=== PATIENT | female | born 1955 | race Caucasian/White ===

== ENCOUNTER → 2016-09-22 | Outpatient (CLI) | payer BC ==
--- NOTE | 2016-09-22 16:24 | MAMMOGRAPHY REPORT ---
BILATERAL DIGITAL SCREENING MAMMOGRAM WITH CAD: 09/22/2016 CLINICAL HISTORY: Routine screening examination. TECHNIQUE: Bilateral CC and MLO views were obtained. Current study was also evaluated with a Comput er Aided Detection (CAD) system. COMPARISON: Comparison is made to exams dated: 12/21/2014 mammogram, 02/04/2013 mammogram, 11/21/2010 ma mmogram, 11/20/2009 mammogram - [facility], and 09/22/2007. BREAST COMPOSITION: There are scattered areas of fibroglandular density in both breasts. FINDINGS: The parenchymal pattern is unchanged. No developing mass, architectural distortion or clu ster of suspicious microcalcifications is seen in either breast. IMPRESSION: ACR BI-RADS CATEGORY 2: BENIGN There is no mammographic evidence of malignancy. A 1 year screening mammogram is recommended. The p atient will receive written notification of the results. Approximately 10% of breast cancers are not detected with mammography. A negative mammographic repor t should not delay biopsy if a clinically suggestive mass is present. Jennifer Hadley M.D. ay/:09/22/2016 14:17:32 Gas Appliance Repairer: Paulina LEONE(Tata)(Haroon), [facility] letter sent: Normal 1/2 BI-RADS Code: ACR BI-RADS Category 2: Benign
== END | disposition home or self-care (01) ==
LOC: C.MAMM 13:40
PROVIDERS: ATTEND Family Medicine
DX: Z12.31 Encounter for screening mammogram for malignant neoplasm of breast (principal)

== ENCOUNTER → 2017-04-29 | Outpatient (CLI) | payer BC | END | disposition home or self-care (01) | LOC: C.PAPS 11:49 | PROVIDERS: ATTEND Obstetrics & Gynecology | DX: Z01.419 Encounter for gynecological examination (general) (routine) without abnormal findings (principal) ==

== ENCOUNTER → 2017-10-09 | Outpatient (CLI) | payer OTHER ==
--- NOTE | 2017-10-12 07:47 | MAMMOGRAPHY REPORT ---
BILATERAL DIGITAL SCREENING MAMMOGRAM TOMOSYNTHESIS WITH CAD: 10/09/2017 CLINICAL HISTORY: Routine screening. Patient has no complaints. TECHNIQUE: Breast tomosynthesis in addition to standard 2D mammography was performed. Current study was also evaluated with a Computer Aided Detection (CAD) system. COMPARISON: Comparison is made to exams dated: 09/22/2016 mammogram, 12/21/2014 mammogram, 02/04/2013 ma mmogram, 11/21/2010 mammogram, 11/20/2009 mammogram - [facility], and 09/22/2007. BREAST COMPOSITION: There are scattered areas of fibroglandular density in both breasts. FINDINGS: No suspicious masses, calcifications, or areas of architectural distortion are noted in ei ther breast. There has been no significant interval change compared to prior exams. IMPRESSION: ACR BI-RADS CATEGORY 1: NEGATIVE There is no mammographic evidence of malignancy. A 1 year screening mammogram is recommended. The pa tient will receive written notification of the results. Approximately 10% of breast cancers are not detected with mammography. A negative mammographic report should not delay biopsy if a clinically suggestive mass is present. Shena Medina M.D. /:10/09/2017 15:50:43 Health Administration Teacher: Mary LEONE(Tata)(M), [facility] letter sent: Normal 1/2 BI-RADS Code: ACR BI-RADS Category 1: Negative
== END | disposition home or self-care (01) ==
LOC: C.MAMM 15:13
PROVIDERS: ATTEND Nurse Practitioner Family
DX: Z12.31 Encounter for screening mammogram for malignant neoplasm of breast (principal)

== ENCOUNTER 2020-08-10 14:03 | Inpatient (IN) ==
[2020-08-10] MEDS ORDERED: SODIUM CHLORIDE 0.9% 1000ML 1,000 ML IV SCH (15:30)
[2020-08-10] MEDS ORDERED: cefTRIAXone SODIUM 1,000 MG/50 ML BAG IV STA (15:36)
[2020-08-10] MEDS ORDERED: metroNIDAZOLE 500 MG/100 ML BAG IV STA (15:36)
--- NOTE | 2020-08-10 16:06 | Emergency Department Note ---
History of Present Illness General Chief complaint: Abdominal Pain Stated complaint: ABD PAIN, DR PELAYO OVER Time Seen by Provider: 08/10/20 15:20 History of Present Illness Provider complaint: Nausea and vomiting Onset (ago): week(s) 1 Location: abdomen Radiation: non-radiation Severity: mild Pain Consistency: + intermittent Maximum Pain Intensity: 2 Current Pain Intensity: 1 Quality: + aching Relieved By: + none Exacerbated By: + none Associated symptoms: + nausea/vomiting; no chest pain, no fever/chills and no shortness of breath 65-year-old female presents to the emergency department with nausea and vomiting after being evaluated by her oncologist. Patient reports she has been having nausea and vomiting for the last week. She states she felt constipated and took multiple laxatives to help her constipation which did help but then she started having increasing nausea and vomiting. She reports no fevers or chills. Devin mccall reports mild abdominal pain in epigastric area, she states it feels as though she did too many crunches. She states she thought that her symptoms were due to her chemotherapy drug Lenvima. Patient states she stopped the chemotherapy drug lenvima 2 days ago and has been feeling better. Patient did have outpatient labs and scans done today and was then sent to the emergency department by her oncology team. Home Medications Medication Instructions Recorded Confirmed Type cholecalciferol (vitamin D3) 50 2,000 unit PO QAM cap 03/16/19 08/10/20 History mcg (2,000 unit) capsule cranberry 400 mg capsule 400 mg PO DAILY 08/04/19 08/10/20 History metoprolol succinate 25 mg 25 mg PO BID tab 10/21/19 08/10/20 History tablet,extended release 24 hr Allergies Allergy/AdvReac Type Severity Reaction Status Date / Time carvedilol Allergy Mild Anxiety Verified 08/10/20 16:29 losartan Allergy Unknown TIRED AND Verified 08/10/20 16:29 "BLEEDING" - SEE NOTES BELOW codeine AdvReac Mild Headache & Verified 08/10/20 16:29 NAUSEA RIOS Inhibitors AdvReac Unknown CONSTIPATION Verified 08/10/20 16:29 - SEE NOTES BELOW erythromycin base AdvReac Unknown ABDOMINAL Verified 08/10/20 16:29 CRAMPS hydrochlorothiazide AdvReac Unknown SEVERE Verified 08/10/20 16:29 CONSTIPATION Past Med/Surg History Medical History (Updated 08/10/20 @ 17:51 by DAI Vickers) Degenerative disc disease H/O hyperthyroidism No current treatment Hypertension Malignant neoplasm of endometrium Endometrial biopsy 05/17/19 Osteoarthritis Stress bladder incontinence, female Temporomandibular joint disorder hx/no current issues Vaginal pessary present Surgical History History of colonoscopy History of total abdominal hysterectomy and bilateral salpingo-oophorectomy 06/16/2019 Dr. Young - CHRISTINA-BSO with pelvic para aortic node sampling, omen ectomy. History of total right hip replacement 03/19/18: SAB x 1 at L3-L4 at [facility] S/P excision of lipoma HX OF BACK Family History Mother , 88yo Diabetes Heart failure Renal failure Hypertension Father , 93yo Colon cancer Prostate cancer Dementia Brother No problems noted. Sister Deep vein thrombosis Son No problems noted. Daughter No problems noted. Denies family history of Ovarian cancer Social History Smoking Status: Never smoker Second Hand Exposure: No; Hx Alcohol Use: Yes Hx Substance Use: No Preferred Language: Syriac Communication Ability: Effective Visual Impairment: No Limitations Hearing Ability: Normal Mdm Developer Required: No Beliefs That Will Affect Care: None marital status: / Current Living Situation: Alone current occupational status: retired current occupation: Retired from [employer] How many Children do You have: 1 Feels Safe at Home: Yes caffeine: Yes (2 cups/day) during the past year weight has: remained stable Assistive Devices: Glasses Review of Systems A total of 10 systems reviewed and were otherwise negative Physical Exam Vital Signs Vital Signs - 24 hr 08/10/20 14:07 08/10/20 15:47 08/10/20 16:33 Temperature 36.2 C L Temperature Source Temporal Artery Scan Pulse Rate 88 Pulse Rate [Finger] 91 H 88 Respiratory Rate 18 20 16 Respiratory Effort / Characteristics Non-Labored Spontaneous Respiratory Depth Normal Respiratory Pattern Regular Blood Pressure 161/107 H Blood Pressure [Right Arm] 166/102 H 171/110 H Blood Pressure Mean 125 Blood Pressure Mean [Right Arm] 123 130 Pulse Oximetry 97 96 97 Oxygen Delivery Method Room Air Room Air Room Air Sepsis Recent Fever Within 48 Hours No Sepsis New/Unexplained Change in Mental Status N/A Sepsis Action Taken by Nursing No Action Required Physical Exam GENERAL: She is oriented to person, place, and time. She appears well-developed and well-nourished. She does not appear distressed. HENT: Exam performed. -Head: Normocephalic and atraumatic. -Right Ear: External ear normal. No mastoid tenderness. -Left Ear: External ear normal. No mastoid tenderness. -Mouth/Throat: The oropharynx is clear and moist. No trismus in the jaw. No dental abscesses or uvula swelling. No oropharyngeal exudate or tonsillar abscesses. EYES: Conjunctivae and EOM are normal. Pupils are equal, round, and reactive to light. Right eye exhibits no discharge. Left eye exhibits no discharge. No scleral icterus. NECK: Normal range of motion. Neck supple. No JVD present. No spinous process tenderness present. No carotid bruit present. No rigidity. No tracheal deviation and normal range of motion present. No Brudzinski's sign and no Kernig's sign noted. CV: Normal rate, regular rhythm, normal heart sounds and intact distal pulses. There is no peripheral edema. Palpable radial pulses bue. PULM/CHEST: Effort normal and breath sounds normal. No respiratory distress. No stridor. She has no wheezes. She has no rales. -Chest Wall: She exhibits no tenderness. ABD: The abdomen is soft. Bowel sounds are normal. She has no distension. No mass is present. There is tenderness to palpation of the right upper quadrant and epigastric area. There is no rebound, no guarding, no Velez's sign and no tenderness at McBurney's point. Rovsig negative MUSC/SKEL: Normal range of motion. There is no peripheral edema, tenderness or deformity. LYMPH: No cervical adenopathy. NEURO: She is alert and oriented to person, place, and time. She has normal strength. No cranial nerve deficit or sensory deficit. Coordination and gait normal. GCS eye subscore is 4. GCS verbal subscore is 5. GCS motor subscore is 6. Cerebellar tests wnl. SKIN: Skin is warm and dry. She is not diaphoretic. PSYCH: She has a normal mood and affect. Behavior is normal. Judgment and thought content normal. Course Course 1520: The patient was evaluated in room A11. A complete history and physical exam was performed. Patient has a oncology follow-up visit note by Dr. May. Patient has a history of uterine cancer. Patient prescribed Lenvima 20 mg which is on hold. EMR reviewed. Patient had a CTA of the chest on outpatient today which was negative for PE. Patient also had a CT of the abdomen done outpatient which showed a distended gallbladder with wall thickening that is suspicious for acute cholecystitis. There was interstitial and peripancreatic edema suggestive of an associated pancreatitis with no biliary ductal dilatation. There was wall thickening with increased enhancement of the central intrahepatic and extrahepatic biliary tree which may be reactive or represent associated cholangitis. Clinically, the patient does not have cholangitis as she does not have a fever. She has minimal elevation of her bilirubin level at 1.2 which was done outpatient today no clinical evidence of jaundice such as scleral icterus. Is not thought that the patient has acute ascending cholangitis at this time. 1536: Spoke with general surgery Emely Ta PA-C for Dr. Hare. She states he will be down to evaluate the patient. She states that the patient Rocephin and Flagyl. 1609: Dr. Hare and Carrie JONAS or down to evaluate the patient. They state they will let me know if they want the patient mated to their service or to the medicine service. 1614: Dr. Hare evaluated the patient and states she thinks that the pancreatitis is due to the chemotherapy. She recommends admitting to medicine and the surgery team will be on consult. She is okay with Rocephin and Flagyl. Administered Medications Heparin Sodium (Porcine) (Heparin Sod 5,000 Unit/0.5 Ml Vial) 5,000 units SQ Q8 [facility] Stop: 09/09/20 21:59 Last Admin: 08/10/20 22:20 Dose: 5,000 units Documented by: [id number] Dextrose/Lactated Ringer's (D5w And Lactated Ringers) 1,000 mls @ 120 mls/hr IV .[id number] SUGEY Stop: 09/09/20 18:01 Last Admin: 08/10/20 18:38 Dose: 120 mls/hr Documented by: [id number] Magnesium Hydroxide (Magnesium Hydroxide Susp 30 Ml Udc) 30 ml PO BID SUGEY Stop: 09/09/20 20:59 Last Admin: 08/10/20 21:01 Dose: Not Given Documented by: [id number] Metoprolol Succinate (Metoprolol Succ 25mg Ext Rel Tab) 25 mg PO BID SUGEY Stop: 09/09/20 20:59 Last Admin: 08/10/20 19:44 Dose: 25 mg Documented by: [id number] Mineral Oil (Mineral Oil Enema 133 Ml Btl) 133 ml KS HS PRN PRN Reason: Constipation Stop: 09/09/20 16:58 Last Admin: 08/10/20 18:37 Dose: 133 ml Documented by: [id number] Discontinued Medications Bisacodyl (Bisacodyl 5 Mg Tabec) 5 mg PO NOW ONE Stop: 08/10/20 17:00 Last Admin: 08/10/20 17:10 Dose: 5 mg Documented by: [id number] Sodium Chloride (Nss 1000ml) 1,000 mls @ 80 mls/hr IV .[id number] SUGEY Stop: 09/09/20 15:29 Last Infusion: 08/10/20 21:58 Dose: 0 mls/hr Documented by: [id number] Admin: 08/10/20 15:48 Dose: 80 mls/hr Documented by: [id number] Ceftriaxone Sodium (Rocephin) 1,000 mg in 50 mls @ 100 mls/hr IV NOW STA Stop: 08/10/20 16:05 Last Infusion: 08/10/20 16:21 Dose: 0 mls/hr Documented by: [id number] Admin: 08/10/20 15:51 Dose: 100 mls/hr Documented by: [id number] Metronidazole (Flagyl) 500 mg in 100 mls @ 100 mls/hr IV NOW STA Stop: 08/10/20 16:35 Last Infusion: 08/10/20 17:30 Dose: 0 mls/hr Documented by: [id number] Admin: 08/10/20 16:30 Dose: 100 mls/hr Documented by: [id number] Calcium Gluconate 2,000 mg/ (Sodium Chloride) 70 mls @ 240 mls/hr IV NOW ONE Stop: 08/10/20 18:16 Last Infusion: 08/10/20 19:06 Dose: 0 mls/hr Documented by: [id number] Admin: 02/26/21 18:28 Dose: 240 mls/hr Documented by: [id number] Labetalol HCl (Labetalol Hcl Iv 5 Mg/Ml 20ml) 10 mg IV NOW STA Stop: 08/10/20 18:50 Last Admin: 08/10/20 19:14 Dose: Not Given Documented by: [id number] Ondansetron HCl (Ondansetron Inj 2 Mg/Ml 2 Ml Vial) 4 mg IV NOW STA Stop: 08/10/20 18:50 Last Admin: 08/10/20 19:15 Dose: Not Given Documented by: [id number] Medical Decision Making Laboratory Data Result diagrams: 08/10/20 16:15 08/10/20 16:15 Lab Results 08/10/20 08/10/20 08/10/20 Range/Units 16:15 16:15 16:30 WBC 4.80 (4.8-10.8) K/uL RBC 4.10 L (4.2-5.4) M/uL Hgb 12.3 (12.0-16.0) g/dL Hct 35.3 L (37-47) % MCV 86.1 (80-100) fL MCH 30.0 (25-34) pg MCHC 34.8 (32-36) g/dL RDW Std Deviation 46.1 (36.4-46.3) fL RDW Coeff of Lewis 14.7 H (11.5-14.5) % Plt Count 137 (130-400) K/uL MPV 10.0 (7.4-10.4) fL Immature Gran % (Auto) 0.2 % Neut % (Auto) 69.5 % Lymph % (Auto) 20.4 % Kendall % (Auto) 8.5 % Eos % (Auto) 0.6 % Baso % (Auto) 0.8 % Neut # (Auto) 3.33 (1.4-6.5) K/uL Lymph # (Auto) 0.98 L (1.2-3.4) K/uL Kendall # (Auto) 0.41 (0.11-0.59) K/uL Eos # (Auto) 0.03 (0-0.5) K/uL Baso # (Auto) 0.04 (0-0.2) K/uL Immature Gran # (Auto) 0.01 (0.00-0.02) K/uL Sodium 138 (136-145) mmol/L Potassium 3.0 L (3.5-5.1) mmol/L Chloride 103 (98-107) mmol/L Carbon Dioxide 24 (21-32) mmol/L Anion Gap 11.0 (3-11) BUN 11 (7-18) mg/dl Creatinine 1.00 (0.6-1.2) mg/dl Est Cr Clr Drug Dosing 52.7 ml/min Est GFR ( Amer) 67.5 Est GFR (Non-Af Amer) 58.3 BUN/Creatinine Ratio 11.3 (10-20) Glucose 112 H (70-99) mg/dl Calcium 7.5 L (8.5-10.1) mg/dl Total Bilirubin 0.9 (0.2-1) mg/dl Direct Bilirubin 0.2 (0-0.2) mg/dl AST 27 (15-37) U/L ALT 22 (12-78) U/L Alkaline Phosphatase 105 (45-117) U/L Total Protein 6.0 L (6.4-8.2) gm/dl Albumin 2.5 L (3.4-5.0) gm/dl Lipase 2037 H (73-393) U/L COVID-19 Eval [facility] SARS-CoV-2, RNA, NAAT (NEGATIVE) 08/10/20 Range/Units 16:30 WBC (4.8-10.8) K/uL RBC (4.2-5.4) M/uL Hgb (12.0-16.0) g/dL Hct (37-47) % MCV (80-100) fL MCH (25-34) pg MCHC (32-36) g/dL RDW Std Deviation (36.4-46.3) fL RDW Coeff of Lewis (11.5-14.5) % Plt Count (130-400) K/uL MPV (7.4-10.4) fL Immature Gran % (Auto) % Neut % (Auto) % Lymph % (Auto) % Kendall % (Auto) % Eos % (Auto) % Baso % (Auto) % Neut # (Auto) (1.4-6.5) K/uL Lymph # (Auto) (1.2-3.4) K/uL Kendall # (Auto) (0.11-0.59) K/uL Eos # (Auto) (0-0.5) K/uL Baso # (Auto) (0-0.2) K/uL Immature Gran # (Auto) (0.00-0.02) K/uL Sodium (136-145) mmol/L Potassium (3.5-5.1) mmol/L Chloride (98-107) mmol/L Carbon Dioxide (21-32) mmol/L Anion Gap (3-11) BUN (7-18) mg/dl Creatinine (0.6-1.2) mg/dl Est Cr Clr Drug Dosing ml/min Est GFR ( Amer) Est GFR (Non-Af Amer) BUN/Creatinine Ratio (10-20) Glucose (70-99) mg/dl Calcium (8.5-10.1) mg/dl Total Bilirubin (0.2-1) mg/dl Direct Bilirubin (0-0.2) mg/dl AST (15-37) U/L ALT (12-78) U/L Alkaline Phosphatase (45-117) U/L Total Protein (6.4-8.2) gm/dl Albumin (3.4-5.0) gm/dl Lipase (73-393) U/L COVID-19 Eval Order SARS-CoV-2, RNA, NAAT NEGATIVE (NEGATIVE) [facility] Narrative 1520: The patient was evaluated in room A11. A complete history and physical exam was performed. Patient has a oncology follow-up visit note by Dr. May. Patient has a history of uterine cancer. Patient prescribed Lenvima 20 mg which is on hold. EMR reviewed. Patient had a CTA of the chest on outpatient today which was negative for PE. Patient also had a CT of the a bdomen done outpatient which showed a distended gallbladder with wall thickening that is suspicious for acute cholecystitis. There was interstitial and peripancreatic edema suggestive of an associated pancreatitis with no biliary ductal dilatation. There was wall thickening with increased enhancement of the central intrahepatic and extrahepatic biliary tree which may be reactive or represent associated cholangitis. Clinically, the patient does not have cholangitis as she does not have a fever. She has minimal elevation of her bilirubin level at 1.2 which was done outpatient today no clinical evidence of jaundice such as scleral icterus. Is not thought that the patient has acute ascending cholangitis at this time. 1536: Spoke with general surgery Emely Ta PA-C for Dr. Hare. She states he will be down to evaluate the patient. She states that the patient Rocephin and Flagyl. 1609: Dr. Hare and Carrie JONAS or down to evaluate the patient. They state they will let me know if they want the patient mated to their service or to the medicine service. 1614: Dr. Hare evaluated the patient and states she thinks that the pancreatitis is due to the chemotherapy. She recommends admitting to medicine and the surgery team will be on consult. She is okay with Rocephin and Flagyl. Impression & Plan Pancreatitis, Gallstones Discharge Plan Visit Data Chief Complaint: Abdominal Pain Stated Complaint: ABD PAIN, DR REF OVER ED Provider: David Villar Discharge Problem: Pancreatitis, Gallstones Patient Disposition: Admitted As Inpatient Discharge Instructions Interventions: ED Discharge Assessment Last Done: 08/10/20 19:50
--- NOTE | 2020-08-10 16:10 | Surgery Consultation ---
Date of Consultation August 10, 2020 Assessment & Plan (1) Pancreatitis: 65 year-old female presented to ED with complaint of upper abdominal pain felt to be due to constipation secondary to her chemotherapy medication (Lenvima) in which she started therapy on 07/02/20. She also had first dose of Keytruda about one week ago. Outpatient work-up today with CT scan showing evidence of pancreatitis as well as distended gallbladder with wall thickening concerning for acute cholecystitis. Abdominal exam, soft, tender in epigastrium and RUQ. Negative Velez's sign. T. bili slightly elevated but LFTS and alk phos wnl. Lipase pending. Plan: Patient's abdominal pain likely secondary to pancreatitis from Keytruda therapy. Unlikely gallstone pancreatitis as her LFTS are wnl. Would not recommend surgical intervention for cholecystectomy at this time. Will await results of lipase to determine extent of her pancreatitis IV Abx, bowel rest recommended Medicine to admit (2) Gallstones: plan as above Dr. Hare has seen and examined pt, see addendum for further recommendations/plan. Supervising Physician Co-Signing Physician Notes Pt seen and examined. History and physical personally performed also. Admitted after CT scan showed pancreatitis, gallbladder and duodenal edema also. This is in setting of recent linvema and keytruda for metastatic uterine cancer. Of note, she was just starting to feel better, feeling hungry over the last day. has not had a bowel movement in a week. Tender in epigastrium, no velez's sign. lft's including alk phos are normal but she does have known gallstones (seen on prior CT). Signs/ symptoms are more suggestive of medication related pancreatitis (this can be seen with keytruda). Would admit for IVF resuscitation, pain control, bowel rest, treatment of constipation. OK to advance diet as she improves. History of Present Illness Reason for Consultation: Possible cholecystitis Epigastric abdominal pain Requesting Physician: Dr. Villar History of Present Illness Purnima is a pleasant 65 year-old female who presented to emergency department from Dr. De Guzman's office due to abdominal pain, concern for dehydration, possible pancreatitis and cholecystitis. Purnima has history of metastatic uterine cancer s/p total abdominal hysterectomy and bilateral salpingo-oophorectomy. She is currently on Lenvima chemotherapy as well as just recently starting Keytruda. She states since taking the Lenvima (07/02/20) she noticed decrease stool output and smaller stools. Since the last 1.5 weeks she has not been able to have a bowel movement. Had some aching/tenderness in the upper mid abdomen but no severe pain. Had first dose of Keytruda last week. No fever, chills, nausea or vomiting. States she was taking in liquids fine. Was unaware that she had gallstones. Outpatient work-up at Dr. De Guzman's office today included labs which showed no leukocytosis. T. bili slightly elevated at 1.2 but LFTS and alk phos wnl. CT scan of abdomen and pelvis showing possible distended gallbladder with wall thickening concerning for acute cholecystitis as well as mild interstitial and peripancreatic edema suggestive of associated pancreatitis. No pancreatic or biliary ductal dilation. Allergies Allergy/AdvReac Type Severity Reaction Status Date / Time carvedilol Allergy Mild Anxiety Verified 05/20/19 14:17 losartan Allergy Unknown TIRED AND Verified 05/20/19 14:18 "BLEEDING" - SEE NOTES BELOW codeine AdvReac Mild Headache & Verified 05/20/19 14:17 NAUSEA RIOS Inhibitors AdvReac Unknown CONSTIPATION Verified 05/20/19 14:17 - SEE NOTES BELOW erythromycin base AdvReac Unknown ABDOMINAL Verified 05/20/19 14:17 CRAMPS hydrochlorothiazide AdvReac Unknown SEVERE Verified 05/20/19 14:17 CONSTIPATION Home Medications Medication Instructions Recorded Confirmed Type cholecalciferol (vitamin D3) 50 2,000 unit PO QAM cap 03/16/19 10/21/19 History mcg (2,000 unit) capsule cranberry 400 mg capsule 400 mg PO DAILY 08/04/19 10/21/19 History metoprolol succinate 25 mg 25 mg PO BID tab 10/21/19 10/21/19 History tablet,extended release 24 hr olanzapine 2.5 mg tablet 2.5 mg PO DAILY PRN 10/21/19 10/21/19 History ondansetron HCl 8 mg tablet 8 mg PO Q8H PRN 10/21/19 10/21/19 History Patient History Medical History Degenerative disc disease H/O hyperthyroidism No current treatment Hypertension Malignant neoplasm of endometrium Endometrial biopsy 05/17/19 Osteoarthritis Stress bladder incontinence, female Temporomandibular joint disorder hx/no current issues Vaginal pessary present Surgical History History of colonoscopy History of total abdominal hysterectomy and bilateral salpingo-oophorectomy 06/16/2019 Dr. Young - [facility]-BSO with pelvic para aortic node sampling, omenectomy. History of total right hip replacement 03/19/18: SAB x 1 at L3-L4 at [facility] S/P excision of lipoma HX OF BACK Family History Mother , 88yo Diabetes Heart failure Renal failure Hypertension Father , 93yo Colon cancer Prostate cancer Dementia Brother No problems noted. Sister Deep vein thrombosis Son No problems noted. Daughter No problems noted. Denies family history of Ovarian cancer Social History Smoking Status: Never smoker Second Hand Exposure: No; Hx Alcohol Use: Yes Hx Substance Use: No Preferred Language: Divehi Communication Ability: Effective Visual Impairment: No Limitations Hearing Ability: Normal Audiology Director Required: No Beliefs That Will Affect Care: None marital status: / Current Living Situation: Alone current occupational status: retired current occupation: Retired from [employer] How many Children do You have: 1 Feels Safe at Home: Yes caffeine: Yes (2 cups/day) during the past year weight has: remained stable Assistive Devices: Glasses Review of Systems Review of Systems: All systems reviewed & are unremarkable except as noted in HPI & below Physical Exam Constitutional: well developed and well nourished; no acute distress and not ill appearing Respiratory: normal respiratory effort, lungs clear to auscultation Cardiovascular: RRR, no murmur, no edema Gastrointestinal (Abdomen): Inspection/Auscultation: abdomen normal to inspection; abdomen not distended Percussion/Palpation: + abdomen tender (epigastrium , mild tenderness in RUQ, negative Velez's sign) Skin: no rashes, warm and dry no jaundice Psychiatric: A+Ox3, euthymic affect Results & Data ([facility]) Vital Signs (Past 12 Hours) Vital Signs Temp Pulse Pulse Resp BP BP Pulse Ox 08/10/20 15:47 91 H 20 166/102 H 96 08/10/20 14:07 36.2 C L 88 18 161/107 H 97 Diagnostic Findings ABDOMEN AND PELVIS CT WITH IV CONTRAST HISTORY: Acute shortness of breath with generalized abdominal pain, constipation and nausea. History of metastatic endometrial carcinoma R/O BOWL OBSTRUCTION, R/O PE TECHNIQUE: Multiaxial CT images of the abdomen and pelvis were performed following the IV administration of 120 cc of Optiray 320, A dose lowering technique was utilized adhering to the principles of ALARA. COMPARISON STUDY: CTA of the chest of same day, CT abdomen and pelvis 05/28/2020 FINDINGS: The imaged inferior cardiac chambers are unremarkable. Metastatic nodules of the lung bases are redemonstrated measuring up to 2.3 cm on the left. Postoperative changes of the posterior basal segment right lower lobe with mild dependent bibasilar atelectasis/scarring. There is no pneumatosis or pneumoperitoneum. Streak artifact from right hip arthroplasty limits evaluation of the pelvis. The spleen, and adrenal glands are unremarkable. Distended gallbladder with mild wall thickening. There is mild wall thickening of the central intrahepatic and extrahepatic biliary tree. No appreciable biliary ductal dilation or choledocholithiasis. There is mild edema involving the pancreas with trace peripancreatic edema, most pronounced within the uncinate process and pancreatic head. There is mild wall thickening involving the first and second portions of the duodenum. There is no pancreatic ductal dilation. Hypodense 2.3 cm lesion of the lateral left hepatic lobe suggests cyst. There is patency of the hepatic and portal veins. No hydronephrosis. Mild urinary bladder wall thickening with partial distention. Hysterectomy. Small fat filled right inguinal hernia. No abdominal aortic aneurysm or adenopathy. Small hiatal hernia. No bowel obstruction. Colonic diverticulosis. Mild to moderate fecal retention. Scattered air-fluid levels are noted within the right hemicolon and also within several loops of small bowel suggestive of a mild ileus. Noninflamed appendix. Postoperative changes of the ventral abdominal wall. No evidence of intra-abdominal metastasis. The bones appear intact. There are no suspicious bone lesions or acute fracture. IMPRESSION: 1. Distended gallbladder with wall thickening is suspicious for acute cholecystitis. Additionally, there is mild interstitial and peripancreatic edema suggestive of associated pancreatitis. No pancreatic or biliary ductal dilation. 2. Wall thickening with increased enhancement of the central intrahepatic and extrahepatic biliary tree may be reactive or represent associated cholangitis. 3. Likely reactive wall thickening of the duodenum. 4. No bowel obstruction. 5. Pulmonary metastasis redemonstrated. 6. Colonic diverticulosis. 7. Additional findings as above.
[2020-08-10 16:24] LABS: Basophils # (auto) 0.04 K/uL (0-0.2); Basophils % (auto) 0.8 %; Eosinophils # (auto) 0.03 K/uL (0-0.5); Eosinophils % (auto) 0.6 %; Hematocrit (blood only) 35.3 % (37-47); Hemoglobin 12.3 g/dL (12.0-16.0); Immature Granulocytes # (auto) 0.01 K/uL (0.00-0.02); Immature Granulocytes % (auto) 0.2 %; Lymphocytes # (auto) 0.98 K/uL (1.2-3.4); Lymphocytes % (auto) 20.4 %; Mean Corpuscular Hgb Conc 34.8 g/dL (32-36); Mean Corpuscular Volume 86.1 fL (80-100); Monocytes # (auto) 0.41 K/uL (0.11-0.59); Monocytes % (auto) 8.5 %; Neutrophils # (auto) 3.33 K/uL (1.4-6.5); Neutrophils % (auto) 69.5 %; Platelet Count 137 K/uL (130-400); RDW Coefficient of Variation 14.7 % (11.5-14.5); RDW Standard Deviation 46.1 fL (36.4-46.3)
[2020-08-10 16:41] LABS: Albumin Level 2.5 gm/dl (3.4-5.0); BUN Creatinine Ratio 11.3 (10-20); Bilirubin Direct 0.2 mg/dl (0-0.2); Calcium 7.5 mg/dl (8.5-10.1); Creatinine Clr Calc Pharmacy 52.7 ml/min; Est GFR (African American) 67.5; Est GFR (Non-African American) 58.3
[2020-08-10 16:44] LABS: Bilirubin,Total 0.9 mg/dl (0.2-1)
[2020-08-10] MEDS ORDERED: MINERAL OIL ENEMA 133 ML BTL PR PRN (16:59)
[2020-08-10] MEDS ORDERED: bisacodyL 5 MG TABEC PO ONE (16:59)
--- NOTE | 2020-08-10 17:19 | History & Physical Report ---
Date of Service August 10, 2020 Assessment & Plan (1) Pancreatitis: Acute pancreatitis- drug related vs. gallstone cholecystitis - Mild- BISAP 1 - No other evidence of organ failure or involvement - abdomen mildly uncomfortable with deep palpation - treat constipation and volume resuscitate--- increase IVF if exam changes, urine output to guide resuscitation - no abscess or cyst noted on CT scan - Replete Calcium - Lipase 2036 (2) Acute cholecystitis: IV ABX with Rocephin and Flagyl coverage--- GS recommendations to EMD - Gen surgery following - Keep NPO - LFT and bili normal - WBC normal- follow (3) Gallstones: Acute vs. Chronic - GS following - as above - keep NPO (4) Constipation: Abdomen is soft and non-tender, bowel sounds are present but are slow. - There is no evidence of obstipation at this time - no evidence of obstruction, mild illeus - Repleat calcium - (5) Hypertension: Continue home carvedilol - if control becomes an issue secondary to unable to take PO or poor absorption - add on IV Labetolol - Control pain (6) Malignant neoplasm of endometrium: Current plan and followed by [facility]E/ONC - no acute needs at this time History of Present Illness Primary Care Provider: DAI Phelan 66 YOF with past medial history of TVH/BSO, uterine mass, undifferentiated uterus cancer. She underwent 3cycles of Taxol and Carboplatin. She is currently on Lenvima and Keytruda. She is only one dose into her Keytruda last week. Patient comes to the emergency room following an outpatient CT scan that was performed for her abdominal pain, nausea, vomiting, and constipation. Patient reports that for the past 2 weeks she has been having an increase in abdominal pain that is right flank to epigastrium and it waxes in wanes and is sometimes associated with nausea and vomiting. She is also experiencing constipation to which her last bowel movement that was normal was about 2 weeks ago. She has tried laxatives, stool softeners, and 1 fleets enema on Thursday with no response. The constipation has effected her intake of food and water, because at times if she eats too much or too quickly, she will have emesis. The emesis is recently chewed food and bile. She denies feculent material or foul taste. She states that she is passing some gas and she feels her bowels moving (peristalsis) but her stools have been little hard pravin, but no diarhea or pain with bowel movements. She had no abdominal pain or cramping with her enema either. Her CT scan showed evidence of pancreatitis, dilated bile duct and gallbladder thickening with concern for choecystitis. General Surgery was consulted while in the EMD. The patient will be admitted for bowel rest, pain control, IV antibiotics, serial abdominal exams, and management of constipation. Allergies Allergy/AdvReac Type Severity Reaction Status Date / Time carvedilol Allergy Mild Anxiety Verified 08/10/20 16:29 losartan Allergy Unknown TIRED AND Verified 08/10/20 16:29 "BLEEDING" - SEE NOTES BELOW codeine AdvReac Mild Headache & Verified 08/10/20 16:29 NAUSEA RIOS Inhibitors AdvReac Unknown CONSTIPATION Verified 08/10/20 16:29 - SEE NOTES BELOW erythromycin base AdvReac Unknown ABDOMINAL Verified 08/10/20 16:29 CRAMPS hydrochlorothiazide AdvReac Unknown SEVERE Verified 08/10/20 16:29 CONSTIPATION Home Medications Medication Instructions Recorded Confirmed Type cholecalciferol (vitamin D3) 50 2,000 unit PO QAM cap 03/16/19 08/10/20 History mcg (2,000 unit) capsule cranberry 400 mg capsule 400 mg PO DAILY 08/04/19 08/10/20 History metoprolol succinate 25 mg 25 mg PO BID tab 10/21/19 08/10/20 History tablet,extended release 24 hr Past Med/Surg History Medical History Degenerative disc disease H/O hyperthyroidism No current treatment Hypertension Malignant neoplasm of endometrium Endometrial biopsy 05/17/19 Osteoarthritis Stress bladder incontinence, female Temporomandibular joint disorder hx/no current issues Vaginal pessary present Surgical History History of colonoscopy History of total abdominal hysterectomy and bilateral salpingo-oophorectomy 06/16/2019 Dr. Young - [facility] with pelvic para aortic node sampling, omenectomy. History of total right hip replacement 03/19/18: SAB x 1 at L3-L4 at [facility] S/P excision of lipoma HX OF BACK Family History Mother , 88yo Diabetes Heart failure Renal failure Hypertension Father , 93yo Colon cancer Prostate cancer Dementia Brother No problems noted. Sister Deep vein thrombosis Son No problems noted. Daughter No problems noted. Denies family history of Ovarian cancer Social History Smoking Status: Never smoker Second Hand Exposure: No; Do You Dip or Chew Tobacco: No; Tobacco Cessation Education Requested by Patient: No Hx Alcohol Use: No Hx Substance Use: No Preferred Language: Wolof Communication Ability: Effective Visual Impairment: No Limitations Hearing Ability: Normal Cardiac Nurse Required: No Beliefs That Will Affect Care: None marital status: / Current Living Situation: Alone current occupational status: retired current occupation: Retired from [employer] How many Children do You have: 1 Other Information That Helps Us Care for You: No Feels Safe at Home: Yes Safety Concerns: Feels Safe At This Time caffeine: Yes (2 cups/day) during the past year weight has: remained stable Assistive Devices: None Review of Systems Review of Systems: REVIEW OF SYSTEMS: Constitutional: No fever, sweats or chills Eyes: No diplopia, no worsening or blurred vision ENT: normal hearing, no trouble swallowing Respiratory: No cough, sputum, dyspnea at rest or on exertion Cardiovascular: No chest pain, tightness or palpitations Abdomen: (+) pain, nausea, vomiting, and constipation (-) diarrhea Musculoskeletal: No joint pain, calf pain, swelling Neurologic: No weakness, numbness/tingling, or balance problems Psychiatric: No anxiety or depression Skin: No rash or itch Physical Exam Physical Exam: PHYSICAL EXAM: General: awake, alert, no apparent distress Head: Normocephalic, atraumatic ENT: PERRL, EOMI, no pharyngeal exudate, mucous membranes moist Neuro: AAO x 3, speech clear and appropriate, strength intact bilaterally 5/5, sensation intact and equal all extremities and dermatones, no pronator drift Chest: equal rise and fall of the chest, no accessory muscle use, no heaves or thrills, Clear to auscultation, on room air, Cardiac: Regular rate and rhythm, telemetry reviewed, skin warm dry, cap refill <3 seconds, peripheral pulses +2 no JVD, no murmur, no edema GI: NABS x 4 quadrants, soft, nontender to palpation, no rebound, guarding or tenderness : Spontaneously voiding, no pain, no CVA tenderness, Extremities: Normal inspection, no peripheral edema or erythema, calfs nontender to palpation Psych: Normal mood and affect Skin: no rash or erythema Results & Data Results & Data ([facility]) Vital Signs (Past 12 Hours) Vital Signs Temp Pulse Pulse Resp BP BP Pulse Ox 08/10/20 16:33 88 16 171/110 H 97 08/10/20 15:47 91 H 20 166/102 H 96 08/10/20 14:07 36.2 C L 88 18 161/107 H 97 Laboratory Results Abnormal lab results 08/10/20 08/10/20 Range/Units 16:15 16:15 RBC 4.10 L (4.2-5.4) M/uL Hct 35.3 L (37-47) % RDW Coeff of Lewis 14.7 H (11.5-14.5) % Lymph # (Auto) 0.98 L (1.2-3.4) K/uL Potassium 3.0 L (3.5-5.1) mmol/L Glucose 112 H (70-99) mg/dl Calcium 7.5 L (8.5-10.1) mg/dl Total Protein 6.0 L (6.4-8.2) gm/dl Albumin 2.5 L (3.4-5.0) gm/dl Lipase 2037 H (73-393) U/L Diagnostic Findings CT ANGIOGRAM OF THE CHEST CLINICAL HISTORY: Shortness of breath. Possible pulmonary embolism COMPARISON STUDY: May 28, 2020 TECHNIQUE: Following the IV administration of 120 mL of Optiray-320, CT angiogram of the thorax was performed from the thoracic inlet to the lung bases utilizing the pulmonary embolus protocol. Images are reviewed in the axial, sagittal, and coronal planes. IV contrast was administered without complication. MIP imaging was performed. A dose lowering technique was utilized adhering to the principles of ALARA. CT DOSE: 1326.26 mGycm FINDINGS: There is mild gallbladder distention. No pathologically enlarged axillary mediastinal or hilar lymph nodes were visualized. There was no evidence of thoracic aortic dilatation. There were no pulmonary artery filling defects to indicate acute pulmonary embolism. No pleural effusions are visualized. Postsurgical changes are present within the right lower lobe. There are multiple bilateral solid pulmonary nodules consistent with metastatic disease. At least one nodule appears smaller. Nevertheless the findings are indicative of progressive metastatic disease. There are persistent peripheral lingular airspace opacities, likely representing atelectasis/scarring. IMPRESSION: 1. No evidence of acute pulmonary embolism 2. Multiple bilateral pulmonary nodules overall increased in size when compared the prior study consistent with progressive metastatic disease ABDOMEN AND PELVIS CT WITH IV CONTRAST HISTORY: Acute shortness of breath with generalized abdominal pain, constipation and nausea. History of metastatic endometrial carcinoma R/O BOWL OBSTRUCTION, R/O PE TECHNIQUE: Multiaxial CT images of the abdomen and pelvis were performed following the IV administration of 120 cc of Optiray 320, A dose lowering technique was utilized adhering to the principles of ALARA. COMPARISON STUDY: CTA of the chest of same day, CT abdomen and pelvis 05/28/2020 FINDINGS: The imaged inferior cardiac chambers are unremarkable. Metastatic nodules of the lung bases are redemonstrated measuring up to 2.3 cm on the left. Postoperative changes of the posterior basal segment right lower lobe with mild dependent bibasilar atelectasis/scarring. There is no pneumatosis or pneumoperitoneum. Streak artifact from right hip arthroplasty limits evaluation of the pelvis. The spleen, and adrenal glands are unremarkable. Distended gallbladder with mild wall thickening. There is mild wall thickening of the central intrahepatic and extrahepatic biliary tree. No appreciable biliary ductal dilation or choledocholithiasis. There is mild edema involving the pancreas with trace peripancreatic edema, most pronounced within the uncinate process and pancreatic head. There is mild wall thickening involving the first and second portions of the duodenum. There is no pancreatic ductal dilation. Hypodense 2.3 cm lesion of the lateral left hepatic lobe suggests cyst. There is patency of the hepatic and portal veins. No hydronephrosis. Mild urinary bladder wall thickening with partial distention. Hysterectomy. Small fat filled right inguinal hernia. No abdominal aortic aneurysm or adenopathy. Small hiatal hernia. No bowel obstruction. Colonic diverticulosis. Mild to moderate fecal retention. Scattered air-fluid levels are noted within the right hemicolon and also within several loops of small bowel suggestive of a mild ileus. Noninflamed appendix. Postoperative changes of the ventral abdominal wall. No evidence of intra-abdominal metastasis. The bones appear intact. There are no suspicious bone lesions or acute fracture. IMPRESSION: 1. Distended gallbladder with wall thickening is suspicious for acute cholecystitis. Additionally, there is mild interstitial and peripancreatic edema suggestive of associated pancreatitis. No pancreatic or biliary ductal dilation. 2. Wall thickening with increased enhancement of the central intrahepatic and extrahepatic biliary tree may be reactive or represent associated cholangitis. 3. Likely reactive wall thickening of the duodenum. 4. No bowel obstruction. 5. Pulmonary metastasis redemonstrated. 6. Colonic diverticulosis. 7. Additional findings as above. Medications Administered Sodium Chloride (Nss 1000ml) 1,000 mls @ 80 mls/hr IV .[id number] SUGEY Stop: 09/09/20 15:29 Last Admin: 08/10/20 15:48 Dose: 80 mls/hr Documented by: [id number] Discontinued Medications Bisacodyl (Bisacodyl 5 Mg Tabec) 5 mg PO NOW ONE Stop: 08/10/20 17:00 Last Admin: 08/10/20 17:10 Dose: 5 mg Documented by: [id number] Ceftriaxone Sodium (Rocephin) 1,000 mg in 50 mls @ 100 mls/hr IV NOW STA Stop: 08/10/20 16:05 Last Infusion: 08/10/20 16:21 Dose: 0 mls/hr Documented by: [id number] Admin: 08/10/20 15:51 Dose: 100 mls/hr Documented by: [id number] Metronidazole (Flagyl) 500 mg in 100 mls @ 100 mls/hr IV NOW STA Stop: 08/10/20 16:35 Last Admin: 08/10/20 16:30 Dose: 100 mls/hr Documented by: [id number] Home Medications cholecalciferol (vitamin D3) 50 mcg (2,000 unit) capsule 2,000 unit PO QAM cap 03/16/19 [History Confirmed 08/10/20] cranberry 400 mg capsule 400 mg PO DAILY 08/04/19 [History Confirmed 08/10/20] metoprolol succinate 25 mg tablet,extended release 24 hr 25 mg PO BID tab 10/21/19 [History Confirmed 08/10/20] Active Medications Sodium Chloride (Nss 1000ml) 1,000 mls @ 80 mls/hr IV .[id number] SUGEY Stop: 09/09/20 15:29 Last Admin: 08/10/20 15:48 Dose: 80 mls/hr Documented by: Magnesium Hydroxide (Magnesium Hydroxide Susp 30 Ml Udc) 30 ml PO BID SUGEY Stop: 09/09/20 20:59 Mineral Oil (Mineral Oil Enema 133 Ml Btl) 133 ml [place] HS PRN PRN Reason: Constipation Stop: 09/09/20 16:58 ECG Additional Comments: Code Status & VTE Plan Code Status FULL CODE DVT: Heparin Sub q, SCD VTE Prophylaxis Plan VTE Prophylaxis will be ordered: Yes Supervising Physician Co-Signing Physician Notes During my face to face encounter with the patient, I obtained a physical examination and clinical history I discussed plan of care with FAUSTO Joel I answered all of the patients questions. Patient will be admitted for pancreatitis. Will keep patient NPO. Patient wants to eat however. Explained that she will benefit from keep her NPO for now. PG Care Time/CCT Total # of Minutes Spent Total Time Spent with Patient: Total time spent is greater than 50% in coordination of care (as documented) at patient's floor/unit and/or counseling patient: Coding Level of Care Code 31740 Initial Inpt Care Lvl 3 Diagnoses Pancreatitis K85.90 Acute pancreatitis complication: unspecified Chronicity: acute Pancreatitis type: unspecified pancreatitis type Acute cholecystitis K81.0 Gallstones K80.20 Constipation K59.03 Constipation type: drug induced constipation Hypertension I10 Hypertension type: essential hypertension Malignant neoplasm of endometrium C54.1 (1) Pancreatitis Acute pancreatitis complication: unspecified Chronicity: acute Pancreatitis type: unspecified pancreatitis type Qualified Code(s): K85.90 - Acute pancreatitis without necrosis or infection, unspecified (2) Hypertension Hypertension type: essential hypertension Qualified Code(s): I10 - Essential (primary) hypertension (3) Constipation Constipation type: drug induced constipation Qualified Code(s): K59.03 - Drug induced constipation
[2020-08-10] MEDS ORDERED: CALCIUM GLUCONATE 10% 2,000 MG in SODIUM CHLORIDE 0.9% 50 ML IV ONE (17:59)
[2020-08-10] MEDS: D5W AND LACTATED RINGERS 1,000 ML IV SCH (18:38)
[2020-08-10] MEDS ORDERED: LABETALOL HCL IV 5 MG/ML 20ML IV STA (18:49)
[2020-08-10] MEDS: ONDANSETRON INJ 2 MG/ML 2 ML VIAL IV STA ×2 (19:12→19:15)
[2020-08-10] MEDS: METOPROLOL SUCC 25MG EXT REL TAB PO SCH (19:44)
[2020-08-10] MEDS ORDERED: TAPENTADOL HCL 50 MG TAB PO PRN (21:00)
[2020-08-10] MEDS: MAGNESIUM HYDROXIDE SUSP 30 ML UDC PO SCH (21:01)
[2020-08-10] MEDS: HEPARIN SOD 5,000 UNIT/0.5 ML VIAL SQ SCH (22:20)
[2020-08-11] MEDS: metroNIDAZOLE 500 MG/100 ML BAG IV SCH ×3 (01:01→15:59)
[2020-08-11] MEDS: ACETAMINOPHEN 325 MG TAB PO PRN ×4 (02:30→19:24)
[2020-08-11] MEDS: D5W AND LACTATED RINGERS 1,000 ML IV SCH (02:37)
[2020-08-11] MEDS: HEPARIN SOD 5,000 UNIT/0.5 ML VIAL SQ SCH ×3 (05:06→21:54)
[2020-08-11 06:31] LABS: Basophils # (auto) 0.02 K/uL (0-0.2); Basophils % (auto) 0.4 %; Eosinophils # (auto) 0.05 K/uL (0-0.5); Eosinophils % (auto) 1.1 %; Hematocrit (blood only) 30.3 % (37-47); Hemoglobin 10.4 g/dL (12.0-16.0); Immature Granulocytes # (auto) 0.01 K/uL (0.00-0.02); Immature Granulocytes % (auto) 0.2 %; Lymphocytes # (auto) 0.84 K/uL (1.2-3.4); Lymphocytes % (auto) 17.8 %; Mean Corpuscular Hemoglobin 29.6 pg (25-34); Mean Corpuscular Hgb Conc 34.3 g/dL (32-36); Mean Corpuscular Volume 86.3 fL (80-100); Mean Platelet Volume 10.1 fL (7.4-10.4); Monocytes # (auto) 0.62 K/uL (0.11-0.59); Monocytes % (auto) 13.1 %; Neutrophils # (auto) 3.18 K/uL (1.4-6.5); Neutrophils % (auto) 67.4 %; Platelet Count 155 K/uL (130-400); RDW Coefficient of Variation 15.2 % (11.5-14.5); RDW Standard Deviation 47.5 fL (36.4-46.3); Red Blood Count 3.51 M/uL (4.2-5.4); White Blood Count 4.72 K/uL (4.8-10.8)
[2020-08-11 07:10] LABS: Albumin Level 2.3 gm/dl (3.4-5.0); BUN Creatinine Ratio 9.2 (10-20); Calcium 7.7 mg/dl (8.5-10.1); Creatinine Clr Calc Pharmacy 59.2 ml/min; Est GFR (African American) 78.8; Magnesium 1.9 mg/dl (1.8-2.4); Potassium 2.9 mmol/L (3.5-5.1)
[2020-08-11 07:13] LABS: Albumin Globulin Ratio 0.8 (0.9-2); Bilirubin,Total 0.6 mg/dl (0.2-1); Globulin 2.8 gm/dl (2.5-4.0); Total Protein 5.1 gm/dl (6.4-8.2)
--- NOTE | 2020-08-11 08:31 | Hospitalist Progress Note ---
Date of Service August 11, 2020 Assessment & Plan (1) Pancreatitis: Acute pancreatitis- drug related suspected - treat constipation and volume resuscitate -CT scan abd/pelvis 08/10/20 IMPRESSION: 1. Distended gallbladder with wall thickening is suspicious for acute cholecystitis. Additionally, there is mild interstitial and peripancreatic edema suggestive of associated pancreatitis. No pancreatic or biliary ductal dilation. 2. Wall thickening with increased enhancement of the central intrahepatic and extrahepatic biliary tree may be reactive or represent associated cholangitis. 3. Likely reactive wall thickening of the duodenum. 4. No bowel obstruction. 5. Pulmonary metastasis re demonstrated. 6. Colonic diverticulosis -nl lft's - Lipase 2036, pt wants to eat and is concerned about her nutrition in face of her cancer treatments, will allow but receck lipase in am and certainly stop if symptomatic, pt states she will be choosy and likley only eat lightly (2) Acute cholecystitis: IV ABX with Rocephin and Flagyl coverage--- GS recommendations to EMD - Gen surgery does not wish to pursue immeidate cholecystectomy, medical management at this time - ordered HIDA for 08/13/20 - LFT and bili normal - WBC normal- (3) Gallstones: Acute vs. Chronic - GS following - Pt adamant about nutrition (4) Constipation: Abdomen is soft and non-tender, bowel sounds are present but are slow. - There is no evidence of obstipation at this time - no evidence of obstruction, mild illeus - Repleat calcium - (5) Hypertension: Continue home carvedilol - if control becomes an issue secondary to unable to take PO or poor absorption - add on IV Labetolol - Control pain (6) Malignant neoplasm of endometrium: Current plan and followed by [facility] - no acute needs at this time, hold Keyuda Admission and Anticipated Discharge Date Admission Date: August 10, 2020 Subjective this pt is frustrated and angry, mostly about her diet and why this happened, General surgery is not planning on intervention at this point but do want HIDA scan on thursday non urgently Review of Systems Review of Systems: Mild distress and fatigue no headache, blurry or double vision no speech or swallowing issues no chest pain, pressure or palpitations no shortness of breath, cough or wheezes mild abdominal pain, no nausea or vomiting, no diarrhea or constipation no dysuria, hematuria or frequency no focal joint pain or swelling no back pain, CVA tenderness or radicular pain no bruising, bleeding or rashes no focal signs of weakness or numbness or altered sensation no complaints of anxiety or depression.. Physical Exam Physical Exam: The patient appeared well nourished and normally developed. Vital signs as documented. Head exam is normocephalic atraumatic no scleral icterus Neck is without JVD, thyromegaly, or carotid bruits. Lungs are clear to auscultation, no focal loss of breath sounds Cardiac exam, Rhythm is regular.. No murmurs, rubs or gallops. Abdominal exam reveals normal bowel sounds, is soft with only mild pain to exam not particularly in RUQ Extremities are nonedematous and both pedal pulses are present Neurologic exam is alert and oriented, no focal loss of strength or sensation Skin is without bruises or rashes Psychologically is with concerns for depression and frustration Results & Data Results & Data ([facility]) Vital Signs (Past 12 Hours) Vital Signs Temp Pulse Resp BP Pulse Ox Pulse Ox 08/11/20 07:55 98.2 F 88 18 154/91 H 98 08/10/20 22:30 98.2 F 83 17 176/90 H 97 08/10/20 21:00 96 PG Care Time/CCT Total # of Minutes Spent Total Time Spent with Patient: Total time spent is greater than 50% in coordination of care (as documented) at patient's floor/unit and/or counseling patient: Coding Level of Care Code 50668 Subseq Hosp Care Lvl 2 Diagnoses Pancreatitis K85.90 Acute pancreatitis complication: unspecified Chronicity: acute Pancreatitis type: unspecified pancreatitis type Acute cholecystitis K81.0 Gallstones K80.20 Constipation K59.03 Constipation type: drug induced constipation Hypertension I10 Hypertension type: essential hypertension Malignant neoplasm of endometrium C54.1 (1) Pancreatitis Acute pancreatitis complication: unspecified Chronicity: acute Pancreatitis type: unspecified pancreatitis type Qualified Code(s): K85.90 - Acute pancreatitis without necrosis or infection, unspecified (2) Hypertension Hypertension type: essential hypertension Qualified Code(s): I10 - Essential (primary) hypertension (3) Constipation Constipation type: drug induced constipation Qualified Code(s): K59.03 - Drug induced constipation
--- NOTE | 2020-08-11 08:59 | Surgery Progress Note ---
Date of Service August 11, 2020 Assessment & Plan (1) Gallstones: Unclear if pancreatitis is related to gallstones but no sign of lft abnormality or dilated duct. Given persistent right rib pain, would check HIDA scan to rule out acute cholecystitis. If HIDA negative, OK to start liquids. Present on Admission?: Yes (2) Pancreatitis: ? drug related as can be seen with keytruda. Appears to be improving. OK to start liquids. Present on Admission?: Yes (3) Malignant neoplasm of endometrium: Metastatic disease. Plan as per oncology. Present on Admission?: Yes Admission and Anticipated Discharge Date Admission Date: August 10, 2020 Subjective Has had multiple bouts of diarrhea. Feels aware of her intestine - no sharp pain. Very hungry and feeling "cloudy" from not eating. No nausea/ vomiting. Persists with right sided dull pain but states this is the same pain she has had since her wedge resection. Review of Systems Review of Systems: All systems reviewed & are unremarkable except as noted in HPI & below Physical Exam Constitutional: WD/WN, vitals as above Eyes: PERRL, conjunctivae normal, anicteric sclerae Respiratory: normal respiratory effort, lungs clear to auscultation Cardiovascular: RRR, no murmur, no edema Gastrointestinal (Abdomen): Inspection/Auscultation: abdomen not distended Percussion/Palpation: + abdomen tender (less than yesterday but still present in epigastrium, RUQ) and abdomen soft; no guarding Musculoskeletal: no cyanosis or clubbing, extremities motor strength 5/5 Neurologic: CN's II-XI intact bilaterally and awake Psychiatric: A+Ox3, euthymic affect Results & Data ([facility]) Vital Signs (Past 12 Hours) Vital Signs Temp Pulse Resp BP Pulse Ox Pulse Ox 08/11/20 07:55 36.8 C 88 18 154/91 H 98 08/10/20 22:30 36.8 C 83 17 176/90 H 97 08/10/20 21:00 96 Laboratory Results Abnormal lab results 08/10/20 08/10/20 08/10/20 Range/Units 16:15 16:15 21:13 WBC (4.8-10.8) K/uL RBC 4.10 L (4.2-5.4) M/uL Hgb (12.0-16.0) g/dL Hct 35.3 L (37-47) % RDW Std Deviation (36.4-46.3) fL RDW Coeff of Lewis 14.7 H (11.5-14.5) % Lymph # (Auto) 0.98 L (1.2-3.4) K/uL [place] # (Auto) (0.11-0.59) K/uL Potassium 3.0 L (3.5-5.1) mmol/L BUN/Creatinine Ratio (10-20) Glucose 112 H (70-99) mg/dl Calcium 7.5 L (8.5-10.1) mg/dl Ionized Calcium 1.09 L (1.12-1.32) mmol/L Total Protein 6.0 L (6.4-8.2) gm/dl Albumin 2.5 L (3.4-5.0) gm/dl Albumin/Globulin Ratio (0.9-2) Lipase 2037 H (73-393) U/L 08/11/20 08/11/20 08/11/20 Range/Units 05:38 05:38 05:38 WBC 4.72 L (4.8-10.8) K/uL RBC 3.51 L (4.2-5.4) M/uL Hgb 10.4 L (12.0-16.0) g/dL Hct 30.3 L (37-47) % RDW Std Deviation 47.5 H (36.4-46.3) fL RDW Coeff of Lewis 15.2 H (11.5-14.5) % Lymph # (Auto) 0.84 L (1.2-3.4) K/uL [place] # (Auto) 0.62 H (0.11-0.59) K/uL Potassium 2.9 L (3.5-5.1) mmol/L BUN/Creatinine Ratio 9.2 L (10-20) Glucose 127 H (70-99) mg/dl Calcium 7.7 L (8.5-10.1) mg/dl Ionized Calcium 1.06 L (1.12-1.32) mmol/L Total Protein 5.1 L (6.4-8.2) gm/dl Albumin 2.3 L (3.4-5.0) gm/dl Albumin/Globulin Ratio 0.8 L (0.9-2) Lipase 1306 H (73-393) U/L (1) Pancreatitis Chronicity: acute Pancreatitis type: unspecified pancreatitis type Acute pancreatitis complication: unspecified Qualified Code(s): K85.90 - Acute pancreatitis without necrosis or infection, unspecified
[2020-08-11] MEDS: METOPROLOL SUCC 25MG EXT REL TAB PO SCH ×2 (09:22→20:34)
[2020-08-11] MEDS: MAGNESIUM HYDROXIDE SUSP 30 ML UDC PO SCH ×2 (09:23→19:25)
[2020-08-11] MEDS: bisacodyL 5 MG TABEC PO SCH (09:23)
[2020-08-11] MEDS: cefTRIAXone SODIUM 1,000 MG in DEXTROSE 5% 50 ML IV SCH (15:13)
[2020-08-11] MEDS ORDERED: POTASSIUM CHLORIDE 10 MEQ / 100ML WTR IV STA (18:42)
[2020-08-11] MEDS ORDERED: CALCIUM GLUCONATE 10% 1,000 MG in SODIUM CHLORIDE 0.9% 50 ML IV ONE (19:00)
[2020-08-11] MEDS ORDERED: MAGNESIUM SULFATE / D5W 1 GM/100 ML BAG IV ONE (19:00)
[2020-08-11] MEDS: POTASSIUM CHLORIDE / WTR 10 MEQ/100 ML PLCT IV SCH ×3 (19:24→21:53)
[2020-08-11] MEDS: POTASSIUM CHLORIDE CRTAB 20 MEQ TABCR PO SCH (20:34)
[2020-08-11] MEDS ORDERED: POTASSIUM CHLORIDE CRTAB 20 MEQ TABCR PO STA (22:45)
[2020-08-12] MEDS: metroNIDAZOLE 500 MG/100 ML BAG IV SCH ×3 (01:19→17:13)
[2020-08-12] MEDS: HEPARIN SOD 5,000 UNIT/0.5 ML VIAL SQ SCH ×3 (05:54→21:27)
[2020-08-12 06:10] LABS: Basophils # (auto) 0.02 K/uL (0-0.2); Basophils % (auto) 0.4 %; Eosinophils % (auto) 1.9 %; Hematocrit (blood only) 32.3 % (37-47); Hemoglobin 11.1 g/dL (12.0-16.0); Immature Granulocytes # (auto) 0.01 K/uL (0.00-0.02); Immature Granulocytes % (auto) 0.2 %; Lymphocytes # (auto) 0.89 K/uL (1.2-3.4); Mean Corpuscular Hemoglobin 29.8 pg (25-34); Mean Corpuscular Hgb Conc 34.4 g/dL (32-36); Mean Corpuscular Volume 86.8 fL (80-100); Mean Platelet Volume 10.3 fL (7.4-10.4); Monocytes # (auto) 0.58 K/uL (0.11-0.59); Neutrophils # (auto) 3.65 K/uL (1.4-6.5); Neutrophils % (auto) 69.5 %; Platelet Count 181 K/uL (130-400); RDW Coefficient of Variation 15.3 % (11.5-14.5); RDW Standard Deviation 47.8 fL (36.4-46.3); Red Blood Count 3.72 M/uL (4.2-5.4); White Blood Count 5.25 K/uL (4.8-10.8)
[2020-08-12 07:00] LABS: Albumin Globulin Ratio 0.8 (0.9-2); Albumin Level 2.4 gm/dl (3.4-5.0); BUN Creatinine Ratio 7.5 (10-20); Bilirubin,Total 0.8 mg/dl (0.2-1); Creatinine Clr Calc Pharmacy 69.5 ml/min; Est GFR (African American) 95.6; Est GFR (Non-African American) 82.5; Globulin 3.1 gm/dl (2.5-4.0); Potassium 3.5 mmol/L (3.5-5.1); Total Protein 5.5 gm/dl (6.4-8.2)
[2020-08-12] MEDS: MAGNESIUM HYDROXIDE SUSP 30 ML UDC PO SCH ×2 (08:03→19:52)
[2020-08-12] MEDS: bisacodyL 5 MG TABEC PO SCH (08:03)
[2020-08-12] MEDS: POTASSIUM CHLORIDE CRTAB 20 MEQ TABCR PO SCH (08:04)
[2020-08-12] MEDS: METOPROLOL SUCC 25MG EXT REL TAB PO SCH ×2 (08:04→20:18)
[2020-08-12] MEDS ORDERED: hydrALAZINE HCL 20 MG/ML VIAL IV PRN ×2 (09:05→16:43)
--- NOTE | 2020-08-12 10:32 | Surgery Progress Note ---
Date of Service August 12, 2020 Assessment & Plan (1) Pancreatitis: ? drug related (Keytruda). Lipase came down but has stabilized at 1345 with no further reduction overnight. Still with persistent symptoms of intermittent nausea, ? gastric dysmotiity due to pancreatitis. No right upper qu adrant tenderness on exam, lft's remain normal. No new recommendations Present on Admission?: Yes (2) Gallstones: Unclear if related to pancreatitis. Would check HIDA scan to rule out acute cholecystitis. This is planned for Thursday. Present on Admission?: Yes (3) Hypertension: on her home BP meds but remains hypertensive at times. Management as per medicine Admission and Anticipated Discharge Date Admission Date: August 10, 2020 Subjective No abdominal pain but can feel that her bowels are "active". Still with occasional twinge right upper quadrant which she says is unchanged since wedge resection. Was able to tolerate diet during the day but last evening, felt more nauseated and had small volume emesis. thinks it may have been because the soup was too greasy for her. Did walk yesterday. Review of Systems Review of Systems: All systems reviewed & are unremarkable except as noted in HPI & below Physical Exam Constitutional: WD/WN, vitals as above Respiratory: normal respiratory effort, lungs clear to auscultation Cardiovascular: RRR, no murmur, no edema Gastrointestinal (Abdomen): Inspection/Auscultation: normal bowel sounds; abdomen not distended Percussion/Palpation: abdomen soft; abdomen nontender and no guarding Neurologic: moves all extremities Psychiatric: A+Ox3, euthymic affect Results & Data ([facility]) Vital Signs (Past 12 Hours) Vital Signs Temp Pulse Resp BP Pulse Ox 08/12/20 08:38 36.7 C 88 18 191/116 H 98 08/11/20 23:20 36.5 C 83 18 178/89 H 97 Laboratory Results Abnormal lab results 08/12/20 08/12/20 Range/Units 05:18 05:18 RBC 3.72 L (4.2-5.4) M/uL Hgb 11.1 L (12.0-16.0) g/dL Hct 32.3 L (37-47) % RDW Std Deviation 47.8 H (36.4-46.3) fL RDW Coeff of Lewis 15.3 H (11.5-14.5) % Lymph # (Auto) 0.89 L (1.2-3.4) K/uL BUN 6 L (7-18) mg/dl BUN/Creatinine Ratio 7.5 L (10-20) Calcium 8.0 L (8.5-10.1) mg/dl Total Protein 5.5 L (6.4-8.2) gm/dl Albumin 2.4 L (3.4-5.0) gm/dl Albumin/Globulin Ratio 0.8 L (0.9-2) Lipase 1345 H (73-393) U/L (1) Pancreatitis Chronicity: acute Pancreatitis type: unspecified pancreatitis type Acute pancreatitis complication: unspecified Qualified Code(s): K85.90 - Acute pancreatitis without necrosis or infection, unspecified (2) Hypertension Hypertension type: essential hypertension Qualified Code(s): I10 - Essential (primary) hypertension
[2020-08-12] MEDS: ONDANSETRON INJ 2 MG/ML 2 ML VIAL IV PRN ×2 (12:14→18:23)
--- NOTE | 2020-08-12 13:40 | Hospitalist Progress Note ---
Date of Service August 12, 2020 Assessment & Plan (1) Pancreatitis: Acute pancreatitis- drug related suspected - treat constipation and volume resuscitate -CT scan abd/pelvis 08/10/20 IMPRESSION: 1. Distended gallbladder with wall thickening is suspicious for acute cholecystitis. Additionally, there is mild interstitial and peripancreatic edema suggestive of associated pancreatitis. No pancreatic or biliary ductal dilation. 2. Wall thickening with increased enhancement of the central intrahepatic and extrahepatic biliary tree may be reactive or represent associated cholangitis. 3. Likely reactive wall thickening of the duodenum. 4. No bowel obstruction. 5. Pulmonary metastasis re demonstrated. 6. Colonic diverticulosis -remains with nl lft's - Lipase 1345, with her vomiting will downgrade to clear liquid, is still have nausea will consider re imaging (2) Acute cholecystitis: IV ABX with Rocephin and Flagyl coverage--- GS recommendations to EMD - Gen surgery does not wish to pursue immeidate cholecystectomy, medical managem ent at this time - ordered HIDA for 08/13/20 - LFT and bili normal - WBC normal- (3) Gallstones: Acute vs. Chronic - GS following - Pt adamant about nutrition (4) Constipation: Abdomen is soft and non-tender, bowel sounds are present but are slow. - There is no evidence of obstipation at this time - no evidence of obstruction, mild illeus - Repleat calcium - (5) Hypertension: Continue metoprolol, adding iv hydralazine - if control becomes an issue secondary to unable to take PO or poor absorption - add on IV Labetalol - Control pain (6) Malignant neoplasm of endometrium: Current plan and followed by [facility] - no acute needs at this time, continue to hold [facility] Admission and Anticipated Discharge Date Admission Date: August 10, 2020 Subjective this pt is in a bad mood today, questioning everything we do, she is nauseated and vominting today, we will have to downgrade her diet. her pancreatitis remains about the same with regard to her lipase numbers, however LFt are normal Review of Systems Review of Systems: Mild distress and fatigue no headache, blurry or double vision no speech or swallowing issues no chest pain, pressure or palpitations no shortness of breath, cough or wheezes mild abdominal pain, remains with nausea or vomiting, no diarrhea or constipation no dysuria, hematuria or frequency no focal joint pain or swelling no back pain, CVA tenderness or radicular pain no bruising, bleeding or rashes no focal signs of weakness or numbness or altered sensation no complaints of anxiety or depression.. Physical Exam 2 Physical Exam: The patient appeared well nourished and normally developed. Vital signs as documented. Head exam is normocephalic atraumatic no scleral icterus Neck is without JVD, thyromegaly, or carotid bruits. Lungs are clear to auscultation, no focal loss of breath sounds Cardiac exam, Rhythm is regular.. No murmurs, rubs or gallops. Abdominal exam reveals normal bowel sounds, is soft with only mild pain to exam not particularly in RUQ Extremities are nonedematous and both pedal pulses are present Neurologic exam is alert and oriented, no focal loss of strength or sensation Skin is without bruises or rashes Psychologically is with concerns for depression and frustration Results & Data Results & Data ([facility]) Vital Signs (Past 12 Hours) Vital Signs Temp Pulse Resp BP Pulse Ox 08/12/20 11:50 158/90 H 08/12/20 11:00 179/103 H 08/12/20 08:38 98.1 F 88 18 191/116 H 98 PG Care Time/CCT Total # of Minutes Spent Total Time Spent with Patient: Total time spent is greater than 50% in coordination of care (as documented) at patient's floor/unit and/or counseling patient: Coding Level of Care Code 78990 Subseq Hosp Care Lvl 3 Diagnoses Pancreatitis K85.90 Acute pancreatitis complication: unspecified Chronicity: acute Pancreatitis type: unspecified pancreatitis type Acute cholecystitis K81.0 Gallstones K80.20 Constipation K59.03 Constipation type: drug induced constipation Hypertension I10 Hypertension type: essential hypertension Malignant neoplasm of endometrium C54.1 (1) Pancreatitis Acute pancreatitis complication: unspecified Chronicity: acute Pancreatitis type: unspecified pancreatitis type Qualified Code(s): K85.90 - Acute pancreatitis without necrosis or infection, unspecified (2) Hypertension Hypertension type: essential hypertension Qualified Code(s): I10 - Essential (primary) hypertension (3) Constipation Constipation type: drug induced constipation Qualified Code(s): K59.03 - Drug induced constipation
[2020-08-12] MEDS: ACETAMINOPHEN 325 MG TAB PO PRN ×2 (16:34→20:25)
[2020-08-12] MEDS: cefTRIAXone SODIUM 1,000 MG in DEXTROSE 5% 50 ML IV SCH (16:37)
[2020-08-12] MEDS: HYDROmorphone INJ 0.5 MG/0.5 ML SYR IV PRN (16:53)
[2020-08-12] MEDS ORDERED: ENALAPRILAT 0.625 MG in SYRINGE 9.5 ML IV ONE (17:00)
[2020-08-12] MEDS ORDERED: POTASSIUM CHLORIDE 10 MEQ / 100ML WTR IV STA (18:41)
[2020-08-12] MEDS ORDERED: LORazepam 0.5 MG/1 ML VIAL IV PRN (18:42)
[2020-08-12] MEDS ORDERED: POTASSIUM CHLORIDE CRTAB 20 MEQ TABCR PO ONE (20:30)
[2020-08-12] MEDS ORDERED: POTASSIUM CHLORIDE 10 MEQ TABCR PO ONE (20:30)
[2020-08-12] MEDS: POTASSIUM CHLORIDE / WTR 10 MEQ/100 ML PLCT IV SCH ×2 (20:48→21:19)
[2020-08-12] MEDS: POLYETHYLENE (MIRALAX) 17 GM PACK PO SCH (21:26)
[2020-08-13] MEDS: metroNIDAZOLE 500 MG/100 ML BAG IV SCH ×3 (00:06→17:09)
[2020-08-13] MEDS: ONDANSETRON INJ 2 MG/ML 2 ML VIAL IV PRN (01:10)
[2020-08-13] MEDS: HEPARIN SOD 5,000 UNIT/0.5 ML VIAL SQ SCH ×2 (05:57→14:47)
[2020-08-13 06:25] LABS: Basophils # (auto) 0.02 K/uL (0-0.2); Basophils % (auto) 0.3 %; Eosinophils # (auto) 0.06 K/uL (0-0.5); Hematocrit (blood only) 31.3 % (37-47); Hemoglobin 10.7 g/dL (12.0-16.0); Immature Granulocytes # (auto) 0.01 K/uL (0.00-0.02); Immature Granulocytes % (auto) 0.2 %; Lymphocytes # (auto) 0.82 K/uL (1.2-3.4); Lymphocytes % (auto) 13.9 %; Mean Corpuscular Hemoglobin 30.1 pg (25-34); Mean Corpuscular Hgb Conc 34.2 g/dL (32-36); Mean Corpuscular Volume 88.2 fL (80-100); Mean Platelet Volume 9.9 fL (7.4-10.4); Monocytes # (auto) 0.54 K/uL (0.11-0.59); Monocytes % (auto) 9.1 %; Neutrophils # (auto) 4.47 K/uL (1.4-6.5); Neutrophils % (auto) 75.5 %; Platelet Count 212 K/uL (130-400); RDW Coefficient of Variation 15.9 % (11.5-14.5); RDW Standard Deviation 50.8 fL (36.4-46.3); Red Blood Count 3.55 M/uL (4.2-5.4); White Blood Count 5.92 K/uL (4.8-10.8)
[2020-08-13 06:57] LABS: Albumin Globulin Ratio 0.7 (0.9-2); Albumin Level 2.2 gm/dl (3.4-5.0); BUN Creatinine Ratio 10.4 (10-20); Bilirubin,Total 0.7 mg/dl (0.2-1); Calcium 7.6 mg/dl (8.5-10.1); Est GFR (African American) 91.2; Est GFR (Non-African American) 78.7; Globulin 3.1 gm/dl (2.5-4.0); Potassium 4.1 mmol/L (3.5-5.1); Total Protein 5.3 gm/dl (6.4-8.2)
--- NOTE | 2020-08-13 10:17 | Surgery Progress Note ---
Date of Service August 13, 2020 Assessment & Plan (1) Pancreatitis: Abdominal pain has resolved. Lipase has decreased. White blood cell count is normal. LFTs are normal. Etiology of pancreatitis could be multifactorial. Suggestion of cholecystitis on CT scan. She is to undergo a hepatobiliary scan later today to further evaluate. Await results. Admission and Anticipated Discharge Date Admission Date: August 10, 2020 Subjective Denies abdominal pain Denies nausea and vomiting Hungry She reports passing flatus and having small bowel movement Physical Exam Gastrointestinal (Abdomen): Inspection/Auscultation: normal bowel sounds; abdomen not distended Percussion/Palpation: abdomen soft; abdomen nontender Results & Data ([facility]) Vital Signs (Past 12 Hours) Vital Signs Temp Pulse Resp BP Pulse Ox 08/13/20 07:12 36.9 C 86 18 143/81 H 97 Laboratory Results 08/13/20 08/13/20 Range/Units 05:44 05:44 WBC 5.92 (4.8-10.8) K/uL RBC 3.55 L (4.2-5.4) M/uL Hgb 10.7 L (12.0-16.0) g/dL Hct 31.3 L (37-47) % MCV 88.2 (80-100) fL MCH 30.1 (25-34) pg MCHC 34.2 (32-36) g/dL RDW Std Deviation 50.8 H (36.4-46.3) fL RDW Coeff of Lewis 15.9 H (11.5-14.5) % Plt Count 212 (130-400) K/uL MPV 9.9 (7.4-10.4) fL Immature Gran % (Auto) 0.2 % Neut % (Auto) 75.5 % Lymph % (Auto) 13.9 % [place] % (Auto) 9.1 % Eos % (Auto) 1.0 % Baso % (Auto) 0.3 % Neut # (Auto) 4.47 (1.4-6.5) K/uL Lymph # (Auto) 0.82 L (1.2-3.4) K/uL [place] # (Auto) 0.54 (0.11-0.59) K/uL Eos # (Auto) 0.06 (0-0.5) K/uL Baso # (Auto) 0.02 (0-0.2) K/uL Immature Gran # (Auto) 0.01 (0.00-0.02) K/uL Sodium 137 (136-145) mmol/L Potassium 4.1 D (3.5-5.1) mmol/L Chloride 107 (98-107) mmol/L Carbon Dioxide 22 (21-32) mmol/L Anion Gap 8.0 (3-11) BUN 8 (7-18) mg/dl Creatinine 0.78 (0.6-1.2) mg/dl Est Cr Clr Drug Dosing 65.0 ml/min Est GFR ( Amer) 91.2 Est GFR (Non-Af Amer) 78.7 BUN/Creatinine Ratio 10.4 (10-20) Glucose 99 (70-99) mg/dl Calcium 7.6 L (8.5-10.1) mg/dl Magnesium 2.0 (1.8-2.4) mg/dl Total Bilirubin 0.7 (0.2-1) mg/dl AST 17 (15-37) U/L ALT 15 (12-78) U/L Alkaline Phosphatase 82 (45-117) U/L Total Protein 5.3 L (6.4-8.2) gm/dl Albumin 2.2 L (3.4-5.0) gm/dl Globulin 3.1 (2.5-4.0) gm/dl Albumin/Globulin Ratio 0.7 L (0.9-2) Lipase 670 H (73-393) U/L (1) Pancreatitis Chronicity: acute Pancreatitis type: unspecified pancreatitis type Acute pancreatitis complication: unspecified Qualified Code(s): K85.90 - Acute pancreatitis without necrosis or infection, unspecified
[2020-08-13] MEDS: POLYETHYLENE (MIRALAX) 17 GM PACK PO SCH (10:30)
[2020-08-13] MEDS: MAGNESIUM HYDROXIDE SUSP 30 ML UDC PO SCH ×2 (10:30→19:46)
[2020-08-13] MEDS: METOPROLOL SUCC 25MG EXT REL TAB PO SCH ×2 (10:30→21:08)
[2020-08-13] MEDS: bisacodyL 5 MG TABEC PO SCH (10:30)
[2020-08-13] MEDS ORDERED: MoRPHine SULFATE 2 MG/ML CARP ONE (13:47)
--- NOTE | 2020-08-13 14:43 | Nuclear Medicine Report ---
NUCLEAR HEPATOBILIARY SCAN CLINICAL HISTORY: Pancreatitis. Right upper quadrant abdominal pain. COMPARISON STUDY: Abdominal CT dated 08/10/2020. TECHNIQUE: Dynamic images of the liver and anterior abdomen were obtained every 5 minutes for a total of 60 minutes following the IV administration of 5.5mCi of technetium 99m Choletec. 2 mg of IV morph ine was administered at 60 minutes, with additional imaging performed every 5 minutes for a total of 30 additional minutes. FINDINGS: The hepatobiliary scan shows prompt and homogeneous hepatic uptake. There is visualized act ivity within the intra and extrahepatic biliary tree at 10 minutes. There is normal biliary to bowel transit, with small bowel visualized by 15 minutes. There is nonvisualization of the gallbladder at 60 minutes. The gallbladder was also not visualized at 90 minutes following morphine administration. IMPRESSION: Nonvisualization of the gallbladder. Findings are typical for acute cholecystitis. ACT 112: Negative or not required by law. Electronically signed by: Nick Casas M.D. 08/13/2020 2:42 PM
[2020-08-13] MEDS: cefTRIAXone SODIUM 1,000 MG in DEXTROSE 5% 50 ML IV SCH (16:29)
--- NOTE | 2020-08-13 18:49 | Surgery Progress Note ---
Date of Service F/U HIDA scan- which is positive for acute cholecystitis, pt has no significant abdominal pain, August 13, 2020 Assessment & Plan (1) Pancreatitis: Abdominal pain has resolved. Lipase has decreased. White blood cell count is normal. LFTs are normal. Etiology of pancreatitis could be multifactorial. Suggestion of cholecystitis on CT scan. She is to undergo a hepatobiliary scan later today to further evaluate. Await results. 08/13/2020 6:50PM HIDA scan +, acute cholecystitis, Plan, I recommend to conservative treatment or do laparoscopic cholecystectomy, possible open or cholangiogram tomorrow, pt wants to do cholecystectomy, D/W benefits, risks and alternatives of the surgery, the risks - infection, bleeding, injury CBD, other organs, [place], pt understood, she agrees with the surgery, I answered all questions, NPO after MN, hold heparin after MN Admission and Anticipated Discharge Date Admission Date: August 10, 2020 Supervising Physician Co-Signing Physician Notes During my face to face encounter with the patient, I obtained a physical examination and clinical history I discussed plan of care with FAUSTO Joel I answered all of the patients questions. Patient will be admitted for pancreatitis. Will keep patient NPO. Patient wants to eat however. Explained that she will benefit from keep her NPO for now. Subjective Denies abdominal pain Denies nausea and vomiting Hungry She reports passing flatus and having small bowel movement Physical Exam Constitutional: WD/WN, vitals as above well developed and well nourished Eyes: PERRL, conjunctivae normal, anicteric sclerae ENMT: external ear and nose normal, oropharynx normal Neck: trachea midline, no thyromegaly Respiratory: normal respiratory effort, lungs clear to auscultation normal respiratory effort Cardiovascular: RRR, no murmur, no edema Rate/Rhythm: regular rate and regular rhythm Heart Sounds: normal S1 and normal S2 Gastrointestinal (Abdomen): normal bowel sounds, soft, nontender, no hepatosplenomegaly Percussion/Palpation: abdomen soft Musculoskeletal: no cyanosis or clubbing, extremities motor strength 5/5 Skin: no rashes, warm and dry Neurologic: awake Psychiatric: Orientation: alert and oriented x 3 Results & Data ([facility]) Vital Signs (Past 12 Hours) Vital Signs Temp Pulse Resp BP Pulse Ox 08/13/20 14:52 36.8 C 86 18 159/89 H 96 08/13/20 07:12 36.9 C 86 18 143/81 H 97 Laboratory Results Abnormal lab results 08/13/20 08/13/20 Range/Units 05:44 05:44 RBC 3.55 L (4.2-5.4) M/uL Hgb 10.7 L (12.0-16.0) g/dL Hct 31.3 L (37-47) % RDW Std Deviation 50.8 H (36.4-46.3) fL RDW Coeff of Lewis 15.9 H (11.5-14.5) % Lymph # (Auto) 0.82 L (1.2-3.4) K/uL Calcium 7.6 L (8.5-10.1) mg/dl Total Protein 5.3 L (6.4-8.2) gm/dl Albumin 2.2 L (3.4-5.0) gm/dl Albumin/Globulin Ratio 0.7 L (0.9-2) Lipase 670 H (73-393) U/L Diagnostic Findings NUCLEAR HEPATOBILIARY SCAN CLINICAL HISTORY: Pancreatitis. Right upper quadrant abdominal pain. COMPARISON STUDY: Abdominal CT dated 08/10/2020. TECHNIQUE: Dynamic images of the liver and anterior abdomen were obtained every 5 minutes for a total of 60 minutes following the IV administration of 5.5mCi of technetium 99m Choletec. 2 mg of IV morphine was administered at 60 minutes, with additional imaging performed every 5 minutes for a total of 30 additional minutes. FINDINGS: The hepatobiliary scan shows prompt and homogeneous hepatic uptake. There is visualized activity within the intra and extrahepatic biliary tree at 10 minutes. There is normal biliary to bowel transit, with small bowel visualized by 15 minutes. There is nonvisualization of the gallbladder at 60 minutes. The gallbladder was also not visualized at 90 minutes following morp dian administration. IMPRESSION: Nonvisualization of the gallbladder. Findings are typical for acute cholecystitis. (1) Pancreatitis Chronicity: acute Pancreatitis type: unspecified pancreatitis type Acute pancreatitis complication: unspecified Qualified Code(s): K85.90 - Acute pancreatitis without necrosis or infection, unspecified
[2020-08-13] MEDS: ACETAMINOPHEN 325 MG TAB PO PRN (21:08)
--- NOTE | 2020-08-13 22:10 | Hospitalist Progress Note ---
Date of Service August 13, 2020 Assessment & Plan (1) Pancreatitis: Acute pancreatitis- drug related suspected - treat constipation and volume resuscitate -CT scan abd/pelvis 08/10/20 IMPRESSION: 1. Distended gallbladder with wall thickening is suspicious for acute cholecystitis. Additionally, there is mild interstitial and peripancreatic edema suggestive of associated pancreatitis. No pancreatic or biliary ductal dilation. 2. Wall thickening with increased enhancement of the central intrahepatic and extrahepatic biliary tree may be reactive or represent associated cholangitis. 3. Likely reactive wall thickening of the duodenum. 4. No bowel obstruction. 5. Pulmonary metastasis re demonstrated. 6. Colonic diverticulosis -remains with nl lft's - Lipase IMPROVING, however planning for cholecystectomy tomorrow as HIDA is positive. Patient is in agreeable (2) Acute cholecystitis: IV ABX with Rocephin and Flagyl coverage--- GS recommendations to EMD - Gen surgery does not wish to pursue immeidate cholecystectomy, medical management at this time - ordered HIDA for 08/13/20: POSITIVE - LFT and bili normal - WBC normal- (3) Gallstones: Acute vs. Chronic - GS following - Pt adamant about nutrition -Ordered clear liquid diet for 08/13 (4) Constipation: Abdomen is soft and non-tender, bowel sounds are present but are slow. - There is no evidence of obstipation at this time - no evidence of obstruction, mild illeus - Repleat calcium - (5) Hypertension: Continue metoprolol, adding iv hydralazine - if control becomes an issue secondary to unable to take PO or poor absorption - add on IV Labetalol - Control pain (6) Malignant neoplasm of endometrium: Current plan and followed by HEME/ONC - no acute needs at this time, continue to hold [facility] Admission and Anticipated Discharge Date Admission Date: August 10, 2020 Subjective Patient reports no new symptoms. Continues to have pain, but it is less. Review of Systems Review of Systems: Mild distress and fatigue no headache, blurry or double vision no speech or swallowing issues no chest pain, pressure or palpitations no shortness of breath, cough or wheezes mild abdominal pain, remains with nausea or vomiting, no diarrhea or constipation no dysuria, hematuria or frequency no focal joint pain or swelling no back pain, CVA tenderness or radicular pain no bruising, bleeding or rashes no focal signs of weakness or numbness or altered sensation no complaints of anxiety or depression.. Physical Exam Physical Exam: The patient appeared well nourished and normally developed. Vital signs as documented. Head exam is normocephalic atraumatic no scleral icterus Neck is without JVD, thyromegaly, or carotid bruits. Lungs are clear to auscultation. Cardiac exam: Rhythm is regular. No murmurs, rubs or gallops. Abdominal exam: normal bowel sounds, is soft with only mild pain to exam not particularly in RUQ Extremities are nonedematous and both pedal pulses are present Neurologic exam is alert and oriented, no focal loss of strength or sensation Skin is without bruises or rashes Results & Data Results & [facility] ([facility]) Vital Signs (Past 12 Hours) Vital Signs Temp Pulse Resp BP BP Pulse Ox Pulse Ox 08/13/20 21:10 36.8 C 86 18 161/93 H 95 08/13/20 19:55 95 08/13/20 14:52 36.8 C 86 18 159/89 H 96 PG Care Time/CCT Total # of Minutes Spent Total Time Spent with Patient: Total time spent is greater than 50% in coordination of care (as documented) at patient's floor/unit and/or counseling patient: Coding Level of Care Code 41484 Subseq Hosp Care Lvl 3 Diagnoses Pancreatitis K85.90 Acute pancreatitis complication: unspecified Chronicity: acute Pancreatitis type: unspecified pancreatitis type Acute cholecystitis K81.0 Gallstones K80.20 Constipation K59.03 Constipation type: drug induced constipation Hypertension I10 Hypertension type: essential hypertension Malignant neoplasm of endometrium C54.1 Time Spent (min) 35 (1) Pancreatitis Acute pancreatitis complication: unspecified Chronicity: acute Pancreatitis type: unspecified pancreatitis type Qualified Code(s): K85.90 - Acute pancreatitis without necrosis or infection, unspecified (2) Hypertension Hypertension type: essential hypertension Qualified Code(s): I10 - Essential (primary) hypertension (3) Constipation Constipation type: drug induced constipation Qualified Code(s): K59.03 - Drug induced constipation
[2020-08-14] MEDS ORDERED: Nursing to Pharmacy Communication SCH (00:01)
[2020-08-14] MEDS: metroNIDAZOLE 500 MG/100 ML BAG IV SCH ×3 (00:05→17:43)
[2020-08-14 07:06] LABS: Albumin Level 2.2 gm/dl (3.4-5.0); BUN Creatinine Ratio 10.7 (10-20); Calcium 7.8 mg/dl (8.5-10.1); Creatinine Clr Calc Pharmacy 68.3 ml/min; Est GFR (African American) 97.2; Est GFR (Non-African American) 83.8; Potassium 3.7 mmol/L (3.5-5.1)
[2020-08-14 07:09] LABS: Albumin Globulin Ratio 0.7 (0.9-2); Bilirubin,Total 0.5 mg/dl (0.2-1); Globulin 3.1 gm/dl (2.5-4.0); Total Protein 5.3 gm/dl (6.4-8.2)
[2020-08-14] MEDS: METOPROLOL SUCC 25MG EXT REL TAB PO SCH ×2 (08:59→20:26)
[2020-08-14] MEDS: MAGNESIUM HYDROXIDE SUSP 30 ML UDC PO SCH ×2 (08:59→20:26)
[2020-08-14] MEDS: bisacodyL 5 MG TABEC PO SCH (08:59)
--- NOTE | 2020-08-14 13:26 | Anesthesiology Consultation ---
Date of Service August 14, 2020 Assessment & Plan (1) Encounter for pre-operative examination: Chart Review Chart Review: entry writer initiated History Surgery Operation Date: 08/14/20 07:00 Proposed Procedures p Laparoscopic Cholecystectomy - Criselda Manzano MD Height/Weight Height: 5 ft 2 in Weight: 71.5 kg Allergies Allergy/AdvReac Type Severity Reaction Status Date / Time carvedilol Allergy Mild Anxiety Verified 08/10/20 16:29 losartan Allergy Unknown TIRED AND Verified 08/10/20 16:29 "BLEEDING" - SEE NOTES BELOW codeine AdvReac Mild Headache & Verified 08/10/20 16:29 NAUSEA RIOS Inhibitors AdvReac Unknown CONSTIPATION Verified 08/10/20 16:29 - SEE NOTES BELOW erythromycin base AdvReac Unknown ABDOMINAL Verified 08/10/20 16:29 CRAMPS hydrochlorothiazide AdvReac Unknown SEVERE Verified 08/10/20 16:29 CONSTIPATION Medications Home Medications Medication Instructions Recorded Confirmed Last Taken cholecalciferol (vitamin D3) 50 2,000 unit PO QAM cap 03/16/19 08/10/20 Unknown mcg (2,000 unit) capsule cranberry 400 mg capsule 400 mg PO DAILY 08/04/19 08/10/20 Unknown metoprolol succinate 25 mg 25 mg PO BID tab 10/21/19 08/10/20 Unknown tablet,extended release 24 hr Active Medications Generic Name Dose Route Start Last Admin Trade Name Freq PRN Reason Stop Dose Admin Acetaminophen 325 mg 08/11/20 10:07 08/13/20 21:08 Acetaminophen 325 Mg Tab PO 09/09/20 20:59 325 mg Q4H PRN Administration Pain or Fever Bisacodyl 5 mg 08/11/20 09:00 08/14/20 08:59 Bisacodyl 5 Mg Tabec PO 09/10/20 08:59 Not Given DAILY SUGEY Heparin Sodium (Porcine) 5,000 units 08/10/20 22:00 08/13/20 14:47 Heparin Sod 5,000 Unit/0.5 Ml Vial SQ 09/09/20 21:59 5,000 units Q8 SUGEY Administration Hydromorphone HCl 0.5 mg 08/10/20 21:00 08/12/20 16:53 Hydromorphone Inj 0.5 Mg/0.5 Ml Syr IV 08/24/20 20:59 0.5 mg Q2H PRN Administration Severe Pain Metronidazole 500 mg in 100 mls @ 100 mls/hr 08/11/20 01:00 08/14/20 10:00 Flagyl IV 08/21/20 00:59 Infused Q8H SUGEY Infusion Ceftriaxone Sodium 1,000 mg/ 50 mls @ 100 mls/hr 08/11/20 16:00 08/13/20 17:11 Dextrose IV 08/20/20 15:59 Infused Q24H SUGEY Infusion Protocol Magnesium Hydroxide 30 ml 08/10/20 21:00 08/14/20 08:59 Magnesium Hydroxide Susp 30 Ml Udc PO 09/09/20 20:59 Not Given BID SUGEY Metoprolol Succinate 25 mg 08/10/20 21:00 08/14/20 08:59 Metoprolol Succ 25mg Ext Rel Tab PO 09/09/20 20:59 25 mg BID SUGEY Administration Mineral Oil 133 ml 08/10/20 16:59 08/10/20 18:37 Mineral Oil Enema 133 Ml Btl CA 09/09/20 16:58 133 ml HS PRN Administration Constipation Ondansetron HCl 4 mg 08/10/20 21:00 08/13/20 01:10 Ondansetron Inj 2 Mg/Ml 2 Ml Vial IV 09/09/20 20:59 4 mg Q6H PRN Administration Nausea Polyethylene Glycol 17 gm 08/12/20 21:00 08/13/20 10:30 Polyethylene (Miralax) 17 Gm Pack PO 09/11/20 20:59 Not Given BID SUGEY NPO Date Last Intake of Fluids: 08/13/20 Time Last Intake of Fluids: 23:59 Date Last Intake of Solids: 08/13/20 Time Last Intake of Solids: 23:59 Past Medical History Medical History Degenerative disc disease H/O hyperthyroidism No current treatment Hypertension Malignant neoplasm of endometrium Endometrial biopsy 05/17/19 Osteoarthritis Stress bladder incontinence, female Temporomandibular joint disorder hx/no current issues Vaginal pessary present Past Family History Family History Mother , 88yo Diabetes Heart failure Renal failure Hypertension Father , 93yo Colon cancer Prostate cancer Dementia Brother No problems noted. Sister Deep vein thrombosis Son No problems noted. Daughter No problems noted. Denies family history of Ovarian cancer Past Surgical History Surgical History History of colonoscopy History of total abdominal hysterectomy and bilateral salpingo-oophorectomy 06/16/2019 Dr. Yonug - CHRISTINA-BSO with pelvic para aortic node sampling, omenectomy. History of total right hip replacement 03/19/18: SAB x 1 at L3-L4 at [facility] S/P excision of lipoma HX OF BACK Social History Smoking Status: Never smoker Do You Dip or Chew Tobacco: No Hx Alcohol Use: No alcohol intake frequency: holidays/special occasions only Hx Substance Use: No substance use type: does not use Physical Exam Vital Signs Last Vital Signs Temp 98.2 F 08/14/20 08:30 Pulse 92 H 08/14/20 08:30 Resp 18 08/14/20 08:30 BP 166/94 H 08/14/20 08:30 Pulse Ox 95 08/14/20 08:30 Testing Laboratory Results 08/13/20 05:44 08/14/20 05:37 Electrocardiogram Date: 06/25/20 Normal sinus rhythm, rate 68 bpm Possible Anterior infarct , age undetermined Abnormal ECG When compared with ECG of 17-FEB-2018 12:20, No significant change was found Confirmed by Rodri Navarrete ([id number]) on 06/25/2020 1:21:06 PM
[2020-08-14] MEDS ORDERED: ATROPINE SULFATE 0.1 MG/ML 10ML SYR IV PRN (14:06)
[2020-08-14] MEDS ORDERED: fentaNYL citrate 100 MCG/2 ML VIAL IV PRN (14:06)
[2020-08-14] MEDS ORDERED: ePHEDrine sulfate 50 MG/ML AMP IV PRN (14:06)
[2020-08-14] MEDS ORDERED: ONDANSETRON INJ 2 MG/ML 2 ML VIAL IV PRN (14:06)
--- NOTE | 2020-08-14 14:36 | History & Physical Bridge Note ---
Date of Service August 14, 2020 History & Physical Bridge Note I have examined the patient, reviewed the History & Physical and in the interval since the performance of the History & Physical I have noted the following changes of clinical significance: no changes noted
[2020-08-14] MEDS ORDERED: BUPIVACAINE 0.5 % 5 MG/1 ML MPF 30ML VIAL ONE (14:46)
[2020-08-14] MEDS ORDERED: BACITRACIN OINT 15 GM TUBE ONE (14:46)
[2020-08-14] MEDS ORDERED: LIDOCAINE 1% LOCAL 20 ML VIAL ONE (14:46)
[2020-08-14] MEDS ORDERED: MIDAZOLAM HCL 1 MG/ML 2ML VIAL ONE (14:53)
[2020-08-14] MEDS ORDERED: LIDOCAINE 2% 2 ML VIAL/AMP(20MG/ML) INFIL ONE (14:53)
[2020-08-14] MEDS ORDERED: DEXAMETHASONE SOD INJ 4 MG/ML VIAL ONE (14:53)
[2020-08-14] MEDS ORDERED: ONDANSETRON INJ 2 MG/ML 2 ML VIAL ONE (14:53)
[2020-08-14] MEDS ORDERED: PROPOFOL IV EMULSION 10 MG/ML 20 ML VIAL IV ONE (14:53)
[2020-08-14] MEDS ORDERED: fentaNYL citrate 100 MCG/2 ML VIAL ONE ×2 (14:53→15:47)
[2020-08-14] MEDS ORDERED: NEOSTIGMINE METHYLSULFATE 5 MG/5 ML SYR ONE (15:32)
[2020-08-14] MEDS ORDERED: PHENYLEPHRINE 100MCG/ML 5ML SYR ONE (15:32)
[2020-08-14] MEDS ORDERED: GLYCOPYRROLATE 0.2 MG/ML VIAL ONE ×2 (15:32)
--- NOTE | 2020-08-14 16:34 | Post Operative Brief Note ---
Immediate Post Op Note v1 Date of Surgery August 14, 2020 Pre & Post Diagnosis Operation Date: 08/14/20 07:00 Pre-Op Diagnosis: Acute CHOLECYSTITIS Post-Op Diagnosis: Acute CHOLECYSTITIS I identified the patient and participated in the time-out.: Yes Procedure Operation Date: 08/14/20 07:00 Actual Procedures p Laparoscopic Cholecystectomy(Not Applicable) - Criselda Manzano MD Surgeon Criselda Manzano MD Cras Carrie Ta. PA Estimated Blood Loss 10 Findings Consistent with Post-Op Diagnosis acute cholecystitis, significant inflammation on gallbladder wall, Fluids 1000ml Specimens gallbladder Anesthesia Type General Complications none Disposition Accompanied Patient To Recovery: Yes Disposition: Recovery Room Overlapping Procedure I was immediately available: during the entire case.
--- NOTE | 2020-08-14 17:26 | Anesthesiology Progress Note ---
Date of Service August 14, 2020 Anesthesia Post Procedure Vital Signs Vital Signs: Temp Pulse Pulse Resp BP BP Pulse Ox 08/14/20 17:25 36.6 C 87 20 150/89 H 94 08/14/20 17:15 86 23 167/83 H 96 08/14/20 17:05 87 19 164/96 H 96 08/14/20 16:55 85 20 159/94 H 96 08/14/20 16:47 36.4 C L 87 15 161/81 H 97 08/14/20 15:21 37.1 C 82 18 148/68 H 91 08/14/20 14:00 37 C 86 18 160/99 H 96 08/14/20 13:45 36.7 C 91 H 16 171/93 H 96 08/14/20 08:30 36.8 C 92 H 18 166/94 H 95 08/13/20 21:10 36.8 C 86 18 161/93 H 95 08/13/20 19:55 Pulse Ox 08/14/20 17:25 08/14/20 17:15 08/14/20 17:05 08/14/20 16:55 08/14/20 16:47 08/14/20 15:21 08/14/20 14:00 08/14/20 13:45 08/14/20 08:30 08/13/20 21:10 08/13/20 19:55 95 Pain Intensity Abdomen: Pain Intensity: 4 Transfer of Care Handoff Completed per policy Notes Mental Status: alert / awake / arousable Patient Amnestic to Procedure: Yes Nausea / Vomiting: adequately controlled Pain: adequately controlled Airway Patency, RR, SpO2: stable & adequate BP & HR: stable & adequate Hydration State: stable & adequate Anesthetic Complications: no major complications apparent
[2020-08-14] MEDS: cefTRIAXone SODIUM 1,000 MG in DEXTROSE 5% 50 ML IV SCH (17:43)
[2020-08-14] MEDS: HYDROmorphone INJ 0.5 MG/0.5 ML SYR IV PRN (17:49)
--- NOTE | 2020-08-14 20:24 | Operative Report (OR) ---
DATE OF OPERATION: 08/14/2020 PREOPERATIVE DIAGNOSES: Acute cholecystitis, cholelithiasis. POSTOPERATIVE DIAGNOSES: Acute cholecystitis, cholelithiasis. OPERATION: Laparoscopic cholecystectomy. SURGEON: Criselda Manzano MD BUILDINGS [employer] GROUNDS COORDINATOR: Carrie Ta PA-C. ANESTHESIA: General. ESTIMATED BLOOD LOSS: About 10 mL. FINDINGS: Acute cholecystitis. COMPLICATIONS: None. INDICATIONS FOR THE PROCEDURE: This is a 65-year-old female who was admitted to the hospital for acute cholecystitis with pancreatitis and I recommended to do laparoscopic cholecystectomy, possible open. I did talk to the patient about the benefit, the risk, alternate procedure. I indicated the risks may include but not limited to such as bleeding, infection, injury to common bile duct, injury to bowel, bowel obstruction, incisional hernia, myocardial infarction, DVT, stroke, even . The patient understands. She signed informed consent and I answered all questions. DETAILS OF PROCEDURE: We brought the patient to the OR, put the patient in the supine position. The patient received SCD on bilateral legs to prevent DVT. Also, patient received 2 grams of cefoxitin IV for prophylactic antibiotic. The patient received general anesthesia without difficulties. Abdomen was prepped and draped in routine sterile fashion. After time-out, I injected local anesthesia by using 1% lidocaine mixed with 0.5% Marcaine just above the umbilicus. Then, I made a small incision just above the umbilicus, opened fascia and opened peritoneum under direct vision, put a Alcides trocar in, connected to CO2 to create pneumoperitoneum, flow rate at 6 liters per minute, pressure not more than 14 mmHg. Once we got a nice pneumoperitoneum, we put the camera in, looked around the abdomen, it shows normal finding on the liver. However, the gallbladder shows significant wall thickening, edema, confirmed diagnosis of acute cholecystitis. Once we confirmed the diagnosis, I put two 5 mm trocars on the right upper quadrant, one 12 trocar on the epigastric area. Once all trocars in, we put a grasper to hold the gallbladder. The gallbladder had significant distention, we had to use a large needle to decompress the gallbladder first. Then, we used the grasper to hold the base of gallbladder, put in the direction to the diaphragm, another grasper to hold the pouch of gallbladder, put a lateral to expose the triangle of Calot. The cystic duct was identified and mobilized. The cystic duct had dilatation near 1 cm and I chose 10 cm metal clip, put it on the proximal cystic duct x2 and one was put on the distal cystic duct x1, used a scissor for transection of cystic duct. Before we clamped the cystic duct, we also used a grasper to milk the cystic duct to make sure no stone inside. The cystic artery was identified and mobilized. I put two 10 mm metal clips on the proximal cystic artery, one on the distal cystic artery, then used a scissor for transection of cystic artery and used the Bovie to take down gallbladder from the liver bed. Rechecked, no active bleeding, no bile leak from the liver bed. Then, we removed gallbladder through the catch bag. Again, the patient's cystic duct area had significant inflammation and scar. Once we removed the gallbladder through the catch bag, then we reinserted the Alcides trocar in, connected to CO2 to create pneumoperitoneum, again looked around the abdomen, no active bleeding, no bile leak from the liver bed. Then we removed all trocars under direct vision. No active bleeding from the trocar sites. Pneumoperitoneum was released, now I closed the umbilical incision, fascial layer by using 0 Vicryl [id number] x2, closed subcutaneous layer by using 2-0 Vicryl interruptedly, closed skin by using 4-0 Vicryl continuous running, closed the epigastric incision, the fascial layer by using 0 Vicryl [id number] x2, closed subcutaneous layer by using 2-0 Vicryl interruptedly, closed skin by using 4-0 Vicryl interruptedly, closed another two 5 mm trocar site skin only by using 4-0 Vicryl. Then, we put the dressing on. The patient tolerated the procedure well. All instrument, needle and sponge count were correct x2 at the end of case. The patient was transferred to recovery room in stable condition. After the procedure, I did talk to the patient about the OR finding and the procedure we did. The patient understands. The specimen was sent to pathology. The real estate assistant, Carrie, was necessary for this procedure. Her role is to hold the camera and retraction and exposure. I attest to the content of the Intraoperative Record and any orders documented therein. Any exception s are noted below.
[2020-08-14] MEDS: POLYETHYLENE (MIRALAX) 17 GM PACK PO SCH (20:26)
[2020-08-14] MEDS: ACETAMINOPHEN 325 MG TAB PO PRN (21:12)
--- NOTE | 2020-08-14 22:21 | Hospitalist Progress Note ---
Date of Service August 14, 2020 Assessment & Plan (1) Pancreatitis: Acute pancreatitis- drug related suspected - treat constipation and volume resuscitate -CT scan abd/pelvis 08/10/20 IMPRESSION: 1. Distended gallbladder with wall thickening is suspicious for acute cholecystitis. Additionally, there is mild interstitial and peripancreatic edema suggestive of associated pancreatitis. No pancreatic or biliary ductal dilation. 2. Wall thickening with increased enhancement of the central intrahepatic and extrahepatic biliary tree may be reactive or represent associated cholangitis. 3. Likely reactive wall thickening of the duodenum. 4. No bowel obstruction. 5. Pulmonary metastasis re demonstrated. 6. Colonic diverticulosis -remains with nl lft's - Lipase IMPROVING, (slightly worse today: did have a clear liquid diet in the PM), however planning for cholecystectomy later today as HIDA is positive. Patient is in agreeable. (2) Acute cholecystitis: IV ABX with Rocephin and Flagyl coverage--- GS recommendations to EMD - Gen surgery does not wish to pursue immeidate cholecystectomy, medical management at this time - ordered HIDA for 08/13/20: POSITIVE - LFT and bili normal - WBC normal- (3) Gallstones: Acute vs. Chronic - GS following - Pt adamant about nutrition -Ordered clear liquid diet for 08/13 (4) Constipation: Abdomen is soft and non-tender, bowel sounds are present but are slow. - There is no evidence of obstipation at this time - no evidence of obstruction, mild illeus - Repleat calcium - (5) Hypertension: Continue metoprolol, adding iv hydralazine - if control becomes an issue secondary to unable to take PO or poor absorption - add on IV Labetalol - Control pain (6) Malignant neoplasm of endometrium: Current plan and followed by HEME/ONC - no acute needs at this time, continue to hold [facility] Admission and Anticipated Discharge Date Admission Date: August 10, 2020 Subjective Patient reports feeling better. She contiues to have some pain, and is excited to have the surgery later today. Review of Systems Review of Systems: All systems reviewed & are unremarkable except as noted in HPI & below Physical Exam Physical Exam: The patient appeared well nourished and normally developed. Vital signs as documented. Head exam is normocephalic atraumatic no scleral icterus Neck is without JVD, thyromegaly, or carotid bruits. Lungs are clear to auscultation. Cardiac exam: Rhythm is regular. No murmurs, rubs or gallops. Abdominal exam: normal bowel sounds, is soft with only mild pain to exam not particularly in RUQ Extremities are nonedematous and both pedal pulses are present Neurologic exam is alert and oriented, no focal loss of strength or sensation Skin is without bruises or rashes Results & Data Results & Data ([facility]) Vital Signs (Past 12 Hours) Vital Signs Temp Pulse Pulse Resp BP BP Pulse Ox 08/14/20 20:00 08/14/20 19:39 36.7 C 93 H 16 161/88 H 97 08/14/20 18:37 83 18 147/82 H 97 08/14/20 18:07 79 18 152/80 H 90 08/14/20 17:52 85 18 160/82 H 91 08/14/20 17:37 36.9 C 81 16 170/93 H 92 08/14/20 17:25 36.6 C 87 20 150/89 H 94 08/14/20 17:15 86 23 167/83 H 96 08/14/20 17:05 87 19 164/96 H 96 08/14/20 16:55 85 20 159/94 H 96 08/14/20 16:47 36.4 C L 87 15 161/81 H 97 08/14/20 15:21 37.1 C 82 18 148/68 H 91 08/14/20 14:00 37 C 86 18 160/99 H 96 08/14/20 13:45 36.7 C 91 H 16 171/93 H 96 Pulse Ox 08/14/20 20:00 96 08/14/20 19:39 08/14/20 18:37 08/14/20 18:07 08/14/20 17:52 08/14/20 17:37 08/14/20 17:25 08/14/20 17:15 08/14/20 17:05 08/14/20 16:55 08/14/20 16:47 08/14/20 15:21 08/14/20 14:00 08/14/20 13:45 PG Care Time/CCT Total # of Minutes Spent Total Time Spent with Patient: Total time spent is greater than 50% in coordination of care (as documented) at patient's floor/unit and/or counseling patient: Coding Level of Care Code 61700 Subseq Hosp Care Lvl 2 Diagnoses Pancreatitis K85.90 Acute pancreatitis complication: unspecified Chronicity: acute Pancreatitis type: unspecified pancreatitis type Acute cholecystitis K81.0 Gallstones K80.20 Constipation K59.03 Constipation type: drug induced constipation Hypertension I10 Hypertension type: essential hypertension Malignant neoplasm of endometrium C54.1 Time Spent (min) 25 (1) Pancreatitis Acute pancreatitis complication: unspecified Chronicity: acute Pancreatitis type: unspecified pancreatitis type Qualified Code(s): K85.90 - Acute pancreatitis without necrosis or infection, unspecified (2) Hypertension Hypertension type: essential hypertension Qualified Code(s): I10 - Essential (primary) hypertension (3) Constipation Constipation type: drug induced constipation Qualified Code(s): K59.03 - Drug induced constipation
[2020-08-14 22:56] VITALS: TEMP 98.2
[2020-08-15] MEDS: metroNIDAZOLE 500 MG/100 ML BAG IV SCH ×2 (00:35→09:11)
[2020-08-15 07:23] LABS: Hematocrit (blood only) 31.5 % (37-47); Hemoglobin 10.6 g/dL (12.0-16.0); Immature Granulocytes # (auto) 0.02 K/uL (0.00-0.02); Immature Granulocytes % (auto) 0.4 %; Lymphocytes # (auto) 0.58 K/uL (1.2-3.4); Lymphocytes % (auto) 10.4 %; Mean Corpuscular Hemoglobin 30.1 pg (25-34); Mean Corpuscular Hgb Conc 33.7 g/dL (32-36); Mean Corpuscular Volume 89.5 fL (80-100); Mean Platelet Volume 9.7 fL (7.4-10.4); Monocytes # (auto) 0.16 K/uL (0.11-0.59); Monocytes % (auto) 2.9 %; Neutrophils # (auto) 4.81 K/uL (1.4-6.5); Neutrophils % (auto) 86.3 %; Platelet Count 274 K/uL (130-400); RDW Coefficient of Variation 15.8 % (11.5-14.5); RDW Standard Deviation 51.2 fL (36.4-46.3); Red Blood Count 3.52 M/uL (4.2-5.4); White Blood Count 5.57 K/uL (4.8-10.8)
[2020-08-15 08:10] LABS: Albumin Level 2.2 gm/dl (3.4-5.0); BUN Creatinine Ratio 17.3 (10-20); Est GFR (African American) 103.9; Est GFR (Non-African American) 89.7; Potassium 3.9 mmol/L (3.5-5.1)
[2020-08-15 08:13] LABS: Albumin Globulin Ratio 0.7 (0.9-2); Bilirubin,Total 0.5 mg/dl (0.2-1); Globulin 3.4 gm/dl (2.5-4.0); Total Protein 5.6 gm/dl (6.4-8.2)
[2020-08-15] MEDS ORDERED: CHOLECALCIFEROL 1,000 UNITS 25 MCG TAB PO SCH (09:00)
[2020-08-15] MEDS: METOPROLOL SUCC 25MG EXT REL TAB PO SCH (09:11)
[2020-08-15] MEDS: bisacodyL 5 MG TABEC PO SCH (09:12)
[2020-08-15] MEDS: POLYETHYLENE (MIRALAX) 17 GM PACK PO SCH (09:13)
[2020-08-15] MEDS: MAGNESIUM HYDROXIDE SUSP 30 ML UDC PO SCH (09:13)
--- NOTE | 2020-08-15 09:29 | Surgery Progress Note ---
Date of Service August 15, 2020 Assessment & Plan (1) Acute cholecystitis: POD # 1 s/p laparoscopic cholecystectomy - avss - no postop pain, preop pain resolved - no n/v - t. bili/lfts wnl, lipase now wnl, no leukocytosis. Plan: Okay to advance to regular diet encourage ambulation Okay from surgical standpoint for discharge discharge instructions reviewed f/u surgery office in 2 weeks (2) Pancreatitis: lipase wnl abdominal pain resolved Dr. Manzano has seen and examined pt, agrees with above. Admission and Anticipated Discharge Date Admission Date: August 10, 2020 Subjective feeling so much better today no abdominal pain, not even sore at incision sites preop pain resolved tolerated clears, hungry, no n/v passing gas and liquid stool no chest pain/sob Physical Exam Constitutional: WD/WN, vitals as above Respiratory: normal respiratory effort; no respiratory distress and no labored breathing Gastrointestinal (Abdomen): Inspection/Auscultation: abdomen normal to inspe ction; abdomen not distended Percussion/Palpation: abdomen soft; abdomen nontender, no guarding and abdomen not rigid Skin: no rashes, warm and dry + incision (covered with dry dressings) Psychiatric: A+Ox3, euthymic affect Results & Data ([facility]) Vital Signs (Past 12 Hours) Vital Signs Temp Pulse Resp BP Pulse Ox 08/15/20 07:16 36.8 C 78 18 157/71 H 96 08/15/20 02:44 97 08/15/20 02:43 36.8 C 80 18 134/82 92 08/14/20 22:55 36.8 C 89 16 133/82 98 Laboratory Results 08/15/20 08/15/20 Range/Units 06:36 06:36 WBC 5.57 (4.8-10.8) K/uL RBC 3.52 L (4.2-5.4) M/uL Hgb 10.6 L (12.0-16.0) g/dL Hct 31.5 L (37-47) % MCV 89.5 (80-100) fL MCH 30.1 (25-34) pg MCHC 33.7 (32-36) g/dL RDW Std Deviation 51.2 H (36.4-46.3) fL RDW Coeff of Lewis 15.8 H (11.5-14.5) % Plt Count 274 (130-400) K/uL MPV 9.7 (7.4-10.4) fL Immature Gran % (Auto) 0.4 % Neut % (Auto) 86.3 % Lymph % (Auto) 10.4 % [place] % (Auto) 2.9 % Eos % (Auto) 0.0 % Baso % (Auto) 0.0 % Neut # (Auto) 4.81 (1.4-6.5) K/uL Lymph # (Auto) 0.58 L (1.2-3.4) K/uL [place] # (Auto) 0.16 (0.11-0.59) K/uL Eos # (Auto) 0.00 (0-0.5) K/uL Baso # (Auto) 0.00 (0-0.2) K/uL Immature Gran # (Auto) 0.02 (0.00-0.02) K/uL Sodium 137 (136-145) mmol/L Potassium 3.9 (3.5-5.1) mmol/L Chloride 105 (98-107) mmol/L Carbon Dioxide 23 (21-32) mmol/L Anion Gap 10.0 (3-11) BUN 12 (7-18) mg/dl Creatinine 0.70 (0.6-1.2) mg/dl Est Cr Clr Drug Dosing 72.0 ml/min Est GFR ( Amer) 103.9 Est GFR (Non-Af Amer) 89.7 BUN/Creatinine Ratio 17.3 (10-20) Glucose 110 H (70-99) mg/dl Calcium 8.0 L (8.5-10.1) mg/dl Total Bilirubin 0.5 (0.2-1) mg/dl AST 39 H (15-37) U/L ALT 26 (12-78) U/L Alkaline Phosphatase 81 (45-117) U/L Total Protein 5.6 L (6.4-8.2) gm/dl Albumin 2.2 L (3.4-5.0) gm/dl Globulin 3.4 (2.5-4.0) gm/dl Albumin/Globulin Ratio 0.7 L (0.9-2) Lipase 110 (73-393) U/L (1) Pancreatitis Acute pancreatitis complication: unspecified Chronicity: acute Pancreatitis type: unspecified pancreatitis type Qualified Code(s): K85.90 - Acute pancreatitis without necrosis or infection, unspecified
[2020-08-15 11:26] VITALS: BP 161/77; PULSE 90; O2SAT 97
--- NOTE | 2020-08-15 18:20 | Discharge Summary ---
Date of Service August 15, 2020 Admission HPI Per Admitting Provider 66 YOF with past medial history of TVH/BSO, uterine mass, undifferentiated uterus cancer. She underwent 3cycles of Taxol and Carboplatin. She is currently on Lenvima and Keytruda. She is only one dose into her Keytruda last week. Patient comes to the emergency room following an outpatient CT scan that was performed for her abdominal pain, nausea, vomiting, and constipation. Patient reports that for the past 2 weeks she has been having an increase in abdominal pain that is right flank to epigastrium and it waxes in wanes and is sometimes associated with nausea and vomiting. She is also experiencing constip ation to which her last bowel movement that was normal was about 2 weeks ago. She has tried laxatives, stool softeners, and 1 fleets enema on Thursday with no response. The constipation has effected her intake of food and water, because at times if she eats too much or too quickly, she will have emesis. The emesis is recently chewed food and bile. She denies feculent material or foul taste. She states that she is passing some gas and she feels her bowels moving (peristalsis) but her stools have been little hard pravin, but no diarhea or pain with bowel movements. She had no abdominal pain or cramping with her enema either. Her CT scan showed evidence of pancreatitis, dilated bile duct and gallbladder thickening with concern for choecystitis. General Surgery was consulted while in the EMD. The patient will be admitted for bowel rest, pain control, IV antibiotics, serial abdominal exams, and management of constipation. Principal Diagnosis Pancreatitis Discharge Exam Constitutional WD/WN, vitals as above Eyes EOM intact bilaterally; no conjunctival abnormality ENMT external ear and nose normal, oropharynx normal Neck trachea midline, no thyromegaly normal visual inspection Respiratory normal respiratory effort, lungs clear to auscultation no respiratory distress Cardiovascular RRR, no murmur, no edema Gastrointestinal (Abdomen) Inspection/Auscultation: abdomen normal to inspection; abdomen not distended Musculoskeletal no cyanosis or clubbing, extremities motor strength 5/5 Skin no rashes, warm and dry Neurologic moves all extremities and awake Psychiatric Orientation: alert, oriented to person and cooperative Discharge Data Allergies Allergy/AdvReac Type Severity Reaction Status Date / Time carvedilol Allergy Mild Anxiety Verified 08/10/20 16:29 losartan Allergy Unknown TIRED AND Verified 08/10/20 16:29 "BLEEDING" - SEE NOTES BELOW codeine AdvReac Mild Headache & Verified 08/10/20 16:29 NAUSEA RIOS Inhibitors AdvReac Unknown CONSTIPATION Verified 08/10/20 16:29 - SEE NOTES BELOW erythromycin base AdvReac Unknown ABDOMINAL Verified 08/10/20 16:29 CRAMPS hydrochlorothiazide AdvReac Unknown SEVERE Verified 08/10/20 16:29 CONSTIPATION Consultations 08/10/20 15:36 Consult General Surgery Stat 08/10/20 16:13 ED Decision to Admit Stat 08/10/20 21:00 Consult General Surgery Routine Procedures Performed Operation Date: 08/14/20 07:00 Actual Procedures p Laparoscopic Cholecystectomy(Not Applicable) - Criselda Manzano MD Hospital Course (1) Pancreatitis: Acute pancreatitis- drug-related suspected vs. gallstone. - treat constipation and volume resuscitate -CT scan abd/pelvis 08/10/20 IMPRESSION: 1. Distended gallbladder with wall thickening is suspicious for acute cholecystitis. Additionally, there is mild interstitial and peripancreatic edema suggestive of associated pancreatitis. No pancreatic or biliary ductal dilation. 2. Wall thickening with increased enhancement of the central intrahepatic and extrahepatic biliary tree may be reactive or represent associated cholangitis. 3. Likely reactive wall thickening of the duodenum. 4. No bowel obstruction. 5. Pulmonary metastasis re demonstrated. 6. Colonic diverticulosis -remains with nl lft's - Lipase resolved. Passed gas and had a BM. Ready for discharge per patient and surgical team. Will treat with 3 days of additional abx. (2) Acute cholecystitis: IV ABX with Rocephin and Flagyl coverage--- GS recommendations to EMD - ordered HIDA for 08/13/20: POSITIVE - S/p lap lashay with Dr. Manzano on 08/14. Patient amenable to discharge. (3) Gallstones: Acute vs. Chronic - GS following (4) Constipation: Abdomen is soft and non-tender, bowel sounds are present but are slow. - There is no evidence of obstipation at this time - no evidence of obstruction, mild illeus - Resolved by discharge. (5) Hypertension: Continue metoprolol, adding iv hydralazine - if control becomes an issue secondary to unable to take PO or poor absorption - add on IV Labetalol - Control pain (6) Malignant neoplasm of endometrium: Current plan and followed by HEME/ONC - no acute needs at this time, continue Keytruda on discharge per heme/onc. Total Time Total Time Spent Total Time Spent (In Minutes): 35 Discharge Plan Discharge Items Patient Disposition: Home - Self-Care Reason For Visit: CONSTIPATION, PANCREATITIS, CHOLECYSTITIS Discharge Diagnosis: Gallbladder troubles that caused pancreas trouble Activity: Resume your previous activity Non-emergency contact: Primary Care Provider and Surgeon Call non-emergency contact if: your symptoms worsen and your pain is not controlled Follow-up/Referrals: Amanda Lucas CRNP [Primary Care Provider] - 08/20/20 1:30 pm (WITH PATRICIA LALA) Criselda Manzano MD [Physician] - (Please see Dr. Manzano in 1-2 weeks for follow-up of your surgery.) Diet: Regular Addtl Attending Provider Instructions: Please see Dr. Manzano in 2 weeks for follow-up of your surgery. 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 May shower 3 days after surgery) Diet: - Resume previous diet SPECIAL CARE INSTRUCTIONS: - May shower in 3 days. Sponge bath and wash hair in meantime. After 3 days, remove outer dressings and shower. Let water run over area and pat dry. - Leave steri strips on for one week. - Call the surgeon's office with any questions or concerns - - (ex. temperature higher than 101 degrees F, excessive bleeding or pain). MEDICATIONS: - Resume previous medications unless instructed otherwise by your surgeon. - May alternate extra strength Tylenol and Ibuprofen as needed for mild pain - 650 mg Tylenol every 6 hours as needed - Ibuprofen 600 mg every 6 hours with food - Augmentin 1 tablet twice a day for 3 more days (first dose on 08/15/2020 before bedtime) - [place] 1 tablet every 6 hours, as needed for pain FOLLOW UP VISIT: - If not already scheduled, please call the office to schedule a two week follow-up appointment. Office number Pending Studies at Discharge: Yes Stand-Alone Forms: [facility], Smoking Cessation Medications and DC Order Prescriptions: New hydrocodone-acetaminophen 5-325 mg tablet 1 tab PO TID PRN (Reason: pain) Qty: 10 RF: 0 amoxicillin-pot clavulanate [Augmentin] 875-125 mg tablet 1 tab PO BID Qty: 6 RF: 0 Continued cranberry 400 mg capsule 400 mg PO DAILY RF: 0 cholecalciferol (vitamin D3) [D3-2000] 2,000 unit capsule 2,000 unit PO QAM RF: 0 metoprolol succinate [Toprol XL] 25 mg tablet extended release 24 hr 25 mg PO BID RF: 0 Discharge Orders: Discharge Order (Routine); Ordered 08/15/20 Ordered By: Jason Eduardo/Other Patient Handouts: Cholecystectomy Laparoscopic Dc Admission Data Admit Date/Time: 08/10/20 18:17 Attending Provider: Jason Umana Admit Provider: Branodn Agarwal Primary Care Provider: Amanda Lucas Other Providers: Viktoriya Hare ; Jason Umana Other Interventions: Discharge Summary Assessment (RN) Last Done: 08/15/20 11:35 Coding Level of Care Code D/C Day Management >30 mins Diagnoses Pancreatitis K85.90 Chronicity: acute Pancreatitis type: unspecified pancreatitis type Acute pancreatitis complication: unspecified Acute cholecystitis K81.0 Gallstones K80.20 Constipation K59.03 Constipation type: drug induced constipation Hypertension I10 Hypertension type: essential hypertension Malignant neoplasm of endometrium C54.1
== END 2020-08-15 13:40 | disposition home or self-care (01) ==
LOC: ED 14:03 → SUATTDRO 18:17 → 3W 18:17

== ENCOUNTER 2020-12-07 16:31 | Observation (INO) ==
[2020-12-07 17:37] LABS: Basophils # (auto) 0.01 K/uL (0-0.2); Basophils % (auto) 0.1 %; Eosinophils # (auto) 0.04 K/uL (0-0.5); Eosinophils % (auto) 0.4 %; Hematocrit (blood only) 28.6 % (37-47); Hemoglobin 9.2 g/dL (12.0-16.0); Immature Granulocytes # (auto) 0.03 K/uL (0.00-0.02); Immature Granulocytes % (auto) 0.3 %; Lymphocytes # (auto) 0.85 K/uL (1.2-3.4); Lymphocytes % (auto) 8.7 %; Mean Corpuscular Hemoglobin 27.9 pg (25-34); Mean Corpuscular Hgb Conc 32.2 g/dL (32-36); Mean Corpuscular Volume 86.7 fL (80-100); Monocytes # (auto) 0.73 K/uL (0.11-0.59); Monocytes % (auto) 7.5 %; Platelet Count 507 K/uL (130-400); RDW Coefficient of Variation 20.8 % (11.5-14.5); RDW Standard Deviation 62.7 fL (36.4-46.3); White Blood Count 9.76 K/uL (4.8-10.8)
[2020-12-07 17:58] LABS: Albumin Level 2.2 gm/dl (3.4-5.0); BUN Creatinine Ratio 17.1 (10-20); Calcium 8.1 mg/dl (8.5-10.1); Creatinine Clr Calc Pharmacy 70.8 ml/min; Est GFR (African American) 104.9 ml/min; Est GFR (Non-African American) 90.5 ml/min; Potassium 2.6 mmol/L (3.5-5.1)
[2020-12-07 18:00] LABS: Albumin Globulin Ratio 0.7 (0.9-2); Bilirubin,Total 0.6 mg/dl (0.2-1); Globulin 3.3 gm/dl (2.5-4.0); Total Protein 5.5 gm/dl (6.4-8.2)
[2020-12-07 18:05] LABS: Anisocytosis Present; Polychromasia 1+
[2020-12-07 18:21] LABS: Magnesium 1.8 mg/dl (1.8-2.4); Phosphorus 2.3 mg/dl (2.5-4.9)
[2020-12-07] MEDS ORDERED: MAGNESIUM SULFATE / D5W 1 GM/100 ML BAG IV STA (18:23)
[2020-12-07] MEDS ORDERED: POTASSIUM CHLORIDE / WTR 10 MEQ/100 ML PLCT IV ONE (18:23)
--- NOTE | 2020-12-07 18:45 | Emergency Department Note ---
Impression & Plan Hypokalemia, Fatigue, Dizziness, Hypophosphatemia, Prolonged Q-T interval on ECG ED Provider Note Provider: Trenton Mckeon MD DATE OF SERVICE: 12/07/2020 CHIEF COMPLAINT: Weakness/fatigue HISTORY OF PRESENT ILLNESS: Patient is a 65-year-old female with a past medical history of uterine mass and uterine cancer status post chemotherapy with a history of pancreatitis and acute cholecystitis presenting referred by her outpatient oncologist today due to blood work abnormalities. Patient states since July this year has been having ongoing issues with nausea/vomiting as well as diarrhea. Chemotherapeutic agents have been changed and mild improvement of the diarrhea and has been taking some fluids at home. She denies any recent antibiotics. Reports feeling dizzy and quite fatigued. Has been following with the outpatient oncology and had a CT scan of the chest and abdomen pelvis yesterday as she is not been feeling well. Had blood work this morning showing severe hypokalemia for which again she was referred here. Reports he is having some intermittent muscle cramps and feels very cold. Denies any fever. Denies any significant trauma. Denies abdominal pain or chest pain or shortness of breath currently. Patient does not have a port. Patient states he has had some burning with potassium infusions in the past. REVIEW OF SYSTEMS: A total of 10 review of systems was obtained and negative except as stated above in the HPI. PAST MEDICAL HISTORY: As noted above MEDICATIONS: Reviewed home medication list SOCIAL HISTORY: Lives at home, non-smoker PHYSICAL EXAM: GENERAL: alert and oriented in no acute distress on stretcher under blankets Head: normocephalic and atraumatic EYES: No injection, discharge or icterus. PERRL NECK: Trachea midline. LUNGS: Airway patent. No retractions. Breath sounds clear with good air entry bilaterally. HEART: Regular rate and rhythm. No chest wall tenderness ABDOMEN: Soft and non-tender, without guarding or rebound. SKIN: Acyanotic, warm, dry, without rashes EXTREMITIES: Without swelling, tenderness or deformity NEUROLOGICAL: No focal deficits. No aphasia. No facial droop or slurred speech. EK bpm normal sinus rhythm. No PVC or PAC. Nonspecific inferior and anterior T wave inversions noted with a QTC of 564. CONTINUOUS CARDIAC MONITORING: was ordered and showed a heart rate of 70s-80s bpm in normal sinus rhythm Patient's laboratory studies and imaging reviewed. Differential includes Infection, dehydration, metabolic abnormality, hypo/hyperglycemia, electrolyte disturbance, anemia, hypoxia, cardiac sources, intracerebral event, toxicologic, neurologic, as well as other pathologies. IMPRESSION/MEDICAL DECISION MAKING: Patient referred with repeat labs here confirming significant hypokalemia with a potassium of 2.6. Renal function appears stable. Magnesium low normal at 1.8 and hypophosphatemia of 2.3 noted. No significant abdominal pain reported or abdominal tenderness in the CT reports from the abdomen pelvis as well as the chest CT from yesterday were reviewed questioning some colonic inflammation. Patient without significant focal numbness or weakness but given her dizziness, fatigue, and known oncological process a CT the head is complete and look for possible intracranial abnormality. Per radiology no acute pathology here. IV magnesium and potassium supplementation were ordered. Given a low phosphorus some potassium phosphorus was ordered as well for repletion. Denies recent antibiotics and lower suspicion at this time for C. difficile however a C. difficile test and stool test will be ordered for completeness. Covid testing ordered and negative. QTC is prolongated on the EKG likely secondary to her hypokalemia. Given her significant fatigue and electrolyte abnormality believe further repletion here at the hospital is reasonable and the hospitalist to be contacted. DIAGNOSIS: Hypokalemia, fatigue, hypophosphatemia, prolonged QTC DISPOSITION: Hospitalist will evaluate Patient was agreeable with this plan. Past Med/Surg History Medical History Degenerative disc disease H/O hyperthyroidism No current treatment Hypertension Malignant neoplasm of endometrium Endometrial biopsy 05/17/19 Osteoarthritis Stress bladder incontinence, female Temporomandibular joint disorder hx/no current issues Vaginal pessary present Surgical History History of colonoscopy History of total abdominal hysterectomy and bilateral salpingo-oophorectomy 06/16/2019 Dr. Hector VASQUEZ-NIC with pelvic para aortic node sampling, omenectomy. History of total right hip replacement 03/19/18: SAB x 1 at L3-L4 at [facility] S/P excision of lipoma HX OF BACK Family History Mother , 88yo Diabetes Heart failure Renal failure Hypertension Father , 93yo Colon cancer Prostate cancer Dementia Brother No problems noted. Sister Deep vein thrombosis Son No problems noted. Daughter No problems noted. Denies family history of Ovarian cancer Social History Smoking Status: Never smoker Second Hand Exposure: No; Hx Alcohol Use: No Hx Substance Use: No Preferred Language: Lao Communication Ability: Effective Visual Impairment: No Limitations Hearing Ability: Normal Reliner Required: No Beliefs That Will Affect Care: None marital status: / Current Living Situation: Alone current occupational status: retired current occupation: Retired from [employer] How many Children do You have: 1 Feels Safe at Home: Yes caffeine: Yes (2 cups/day) during the past year weight has: remained stable Assistive Devices: Walker Allergies Allergies Allergy/AdvReac Type Severity Reaction Status Date / Time carvedilol Allergy Mild Anxiety Verified 12/07/20 20:35 losartan Allergy Unknown TIRED AND Verified 12/07/20 20:35 "BLEEDING" - SEE NOTES BELOW codeine AdvReac Mild Headache & Verified 12/07/20 20:35 NAUSEA RIOS Inhibitors AdvReac Unknown CONSTIPATION Verified 12/07/20 20:35 - SEE NOTES BELOW erythromycin base AdvReac Unknown ABDOMINAL Verified 12/07/20 20:35 CRAMPS hydrochlorothiazide AdvReac Unknown SEVERE Verified 12/07/20 20:35 CONSTIPATION Home Meds Home Medications Medication Instructions Recorded Confirmed cholecalciferol (vitamin D3) 50 2,000 unit PO QAM cap 03/16/19 12/07/20 mcg (2,000 unit) capsule cranberry 400 mg capsule 400 mg PO QAM 08/04/19 12/07/20 metoprolol succinate 25 mg 25 mg PO BID tab 10/21/19 12/07/20 tablet,extended release 24 hr levothyroxine 50 mcg capsule 50 mcg PO QAM 10/04/20 12/07/20 acetaminophen [Tylenol] 325 mg PO QID PRN 12/07/20 12/07/20 Results & Data (ED) Vital Signs Vital Signs - 24 hr 12/07/20 16:34 12/07/20 17:52 12/07/20 19:03 Temperature 36.9 C Temperature Source Temporal Artery Scan Pulse Rate 86 Pulse Rate [Left Finger] 79 80 Pulse Rhythm [Left Finger] Regular Pulse Strength [Left Finger] Normal Respiratory Rate 16 20 16 Respiratory Effort / Characteristics Non-Labored Spontaneous Respiratory Depth Normal Respiratory Pattern Regular Blood Pressure 120/71 Blood Pressure [Left Arm] 129/58 L 117/49 L Blood Pressure Mean 87 Blood Pressure Mean [Left Arm] 81 71 Pulse Oximetry 19 L 98 97 Oxygen Delivery Method Room Air Room Air Sepsis Recent Fever Within 48 Hours No Sepsis New/Unexplained Change in Mental Status N/A Sepsis Action Taken by Nursing No Action Required 12/07/20 20:08 Temperature Temperature Source Pulse Rate Pulse Rate [Left Finger] 77 Pulse Rhythm [Left Finger] Pulse Strength [Left Finger] Respiratory Rate 16 Respiratory Effort / Characteristics Respiratory Depth Respiratory Pattern Blood Pressure Blood Pressure [Left Arm] 141/71 H Blood Pressure Mean Blood Pressure Mean [Left Arm] 94 Pulse Oximetry 98 Oxygen Delivery Method Sepsis Recent Fever Within 48 Hours Sepsis New/Unexplained Change in Mental Status Sepsis Action Taken by Nursing Laboratory Data Result diagrams: 12/07/20 17:24 12/07/20 17:24 Lab Results 12/07/20 12/07/20 12/07/20 Range/Units 17:24 17:24 19:04 WBC 9.76 (4.8-10.8) K/uL RBC 3.30 L (4.2-5.4) M/uL Hgb 9.2 L (12.0-16.0) g/dL Hct 28.6 L (37-47) % MCV 86.7 (80-100) fL MCH 27.9 (25-34) pg MCHC 32.2 (32-36) g/dL RDW Std Deviation 62.7 H (36.4-46.3) fL RDW Coeff of Lewis 20.8 H (11.5-14.5) % Plt Count 507 H (130-400) K/uL MPV 9.0 (7.4-10.4) fL Immature Gran % (Auto) 0.3 % Neut % (Auto) 83.0 % Lymph % (Auto) 8.7 % Terrell % (Auto) 7.5 % Eos % (Auto) 0.4 % Baso % (Auto) 0.1 % Neut # (Auto) 8.10 H (1.4-6.5) K/uL Lymph # (Auto) 0.85 L (1.2-3.4) K/uL Terrell # (Auto) 0.73 H (0.11-0.59) K/uL Eos # (Auto) 0.04 (0-0.5) K/uL Baso # (Auto) 0.01 (0-0.2) K/uL Immature Gran # (Auto) 0.03 H (0.00-0.02) K/uL Polychromasia 1+ Anisocytosis Present Sodium 135 L (136-145) mmol/L Potassium 2.6 L (3.5-5.1) mmol/L Chloride 97 L (98-107) mmol/L Carbon Dioxide 27 (21-32) mmol/L Anion Gap 11.0 (3-11) BUN 12 (7-18) mg/dl Creatinine 0.68 (0.6-1.2) mg/dl Est Cr Clr Drug Dosing 70.8 ml/min Est GFR ( Amer) 104.9 ml/min Est GFR (Non-Af Amer) 90.5 ml/min BUN/Creatinine Ratio 17.1 (10-20) Glucose 96 (70-99) mg/dl Calcium 8.1 L (8.5-10.1) mg/dl Phosphorus 2.3 L (2.5-4.9) mg/dl Magnesium 1.8 (1.8-2.4) mg/dl Total Bilirubin 0.6 (0.2-1) mg/dl AST 38 H (15-37) U/L ALT 21 (12-78) U/L Alkaline Phosphatase 146 H (45-117) U/L Total Protein 5.5 L (6.4-8.2) gm/dl Albumin 2.2 L (3.4-5.0) gm/dl Globulin 3.3 (2.5-4.0) gm/dl Albumin/Globulin Ratio 0.7 L (0.9-2) Lipase 39 L (73-393) U/L Urine Color Urine Appearance (Clear) Urine pH (4.5-7.5) Ur Specific Merritt (1.000-1.030) Urine Protein (Negative) Urine Glucose (UA) (Negative) Urine Ketones (Negative) Urine Blood (Negative) Urine Nitrite (Negative) Urine Bilirubin (Negative) Urine Urobilinogen (Negative) Ur Leukocyte Esterase (Negative) Urine WBC (Auto) (0-5) /hpf Urine RBC (Auto) (0-4) /hpf U Hyaline Cast (Auto) (0-5) /lpf U Epithel Cells (Auto) (0-5) /lpf Urine Bacteria (Auto) (Negative) COVID-19 Eval Order Covid19 at [facility] SARS-CoV-2 (PCR) (Negative) 12/07/20 12/07/20 Range/Units 19:04 21:01 WBC (4.8-10.8) K/uL RBC (4.2-5.4) M/uL Hgb (12.0-16.0) g/dL Hct (37-47) % MCV (80-100) fL MCH (25-34) pg MCHC (32-36) g/dL RDW Std Deviation (36.4-46.3) fL RDW Coeff of Lewis (11.5-14.5) % Plt Count (130-400) K/uL MPV (7.4-10.4) fL Immature Gran % (Auto) % Neut % (Auto) % Lymph % (Auto) % Terrell % (Auto) % Eos % (Auto) % Baso % (Auto) % Neut # (Auto) (1.4-6.5) K/uL Lymph # (Auto) (1.2-3.4) K/uL Terrell # (Auto) (0.11-0.59) K/uL Eos # (Auto) (0-0.5) K/uL Baso # (Auto) (0-0.2) K/uL Immature Gran # (Auto) (0.00-0.02) K/uL Polychromasia Anisocytosis Sodium (136-145) mmol/L Potassium (3.5-5.1) mmol/L Chloride (98-107) mmol/L Carbon Dioxide (21-32) mmol/L Anion Gap (3-11) BUN (7-18) mg/dl Creatinine (0.6-1.2) mg/dl Est Cr Clr Drug Dosing ml/min Est GFR ( Amer) ml/min Est GFR (Non-Af Amer) ml/min BUN/Creatinine Ratio (10-20) Glucose (70-99) mg/dl Calcium (8.5-10.1) mg/dl Phosphorus (2.5-4.9) mg/dl Magnesium (1.8-2.4) mg/dl Total Bilirubin (0.2-1) mg/dl AST (15-37) U/L ALT (12-78) U/L Alkaline Phosphatase (45-117) U/L Total Protein (6.4-8.2) gm/dl Albumin (3.4-5.0) gm/dl Globulin (2.5-4.0) gm/dl Albumin/Globulin Ratio (0.9-2) Lipase (73-393) U/L Urine Color Yellow Urine Appearance Clear (Clear) Urine pH 7.0 (4.5-7.5) Ur Specific [place] 1.032 H (1.000-1.030) Urine Protein 1+ H (Negative) Urine Glucose (UA) Negative (Negative) Urine Ketones Trace H (Negative) Urine Blood Negative (Negative) Urine Nitrite Negative (Negative) Urine Bilirubin Negative (Negative) Urine Urobilinogen Negative (Negative) Ur Leukocyte Esterase 1+ H (Negative) Urine WBC (Auto) >30 H (0-5) /hpf Urine RBC (Auto) 0-4 (0-4) /hpf U Hyaline Cast (Auto) 10-30 H (0-5) /lpf U Epithel Cells (Auto) 5-10 H (0-5) /lpf Urine Bacteria (Auto) Negative (Negative) COVID-19 Eval Order SARS-CoV-2 (PCR) NEGATIVE (Negative) Administered Medications Potassium Phosphate 15 mmol/ (Sodium Chloride) 255 mls @ 88 mls/hr IV ONE ONE Stop: 12/07/20 22:38 Last Admin: 12/07/20 20:03 Dose: 88 mls/hr Documented by: [id number] Discontinued Medications Magnesium Sulfate/Dextrose (Magnesium Sulfate / D5w) 1 gm in 100 mls @ 100 mls/hr IV NOW STA Stop: 12/07/20 19:22 Last Infusion: 12/07/20 19:38 Dose: 0 mls/hr Documented by: [id number] Admin: 12/07/20 18:38 Dose: 100 mls/hr Documented by: [id number] Potassium Chloride (K Maciel / Wtr) 10 meq in 100 mls @ 100 mls/hr IV ONE ONE Stop: 12/07/20 19:22 Last Infusion: 12/07/20 19:55 Dose: 0 mls/hr Documented by: [id number] Infusion: 12/07/20 18:56 Dose: 75 mls/hr Documented by: [id number] Admin: 12/07/20 18:38 Dose: 100 mls/hr Documented by: [id number] Imaging Data Radiologist's Impression: Head CT 12/07/20 18:31 CT SCAN OF THE BRAIN WITHOUT IV CONTRAST CLINICAL HISTORY: Dizziness. COMPARISON STUDY: No priors. TECHNIQUE: Unenhanced axial CT scan of the brain is performed from the vertex to the skull base. A dose lowering technique was utilized adhering to the principles of ALARA. CT DOSE: 537.48 mGy.cm FINDINGS: Brain parenchyma: There is mild age-related involutional changes. There is no hemorrhage, mass effect, or evidence of acute territorial ischemia by CT criteria. Turner-white matter differentiation is preserved. No extra-axial fluid collection is seen. Mineralization is noted in the basal ganglia. Ventricles, sulci, cisterns: Prominent secondary to involutional change. Intracranial vasculature: There is atherosclerotic calcification of the cavernous carotid arteries. Calvarium: Unremarkable. Sinuses and mastoids: The visualized paranasal sinuses are clear. The mastoid air cells are well pneumatized. Orbits: The bony orbits are grossly intact. IMPRESSION: There is no hemorrhage, mass effect, or evidence of acute territorial ischemia by CT criteria. ACT 112: Negative or not required by law. Electronically signed by: Nick Casas M.D. 12/07/2020 8:00 PM Discharge Plan Visit Data Chief Complaint: Illness Stated Complaint: ABNORMAL LABS, ILLNESS ED Provider: Trenton Mckeon Discharge Problem: Hypokalemia, Fatigue, Dizziness, Hypophosphatemia, Prolonged Q-T interval on ECG Patient Disposition: Being Evaluated by Hospitalist Forms Stand Alone Forms: My [facility] Prescriptions Prescriptions: No Action cranberry 400 mg capsule 400 mg PO QAM RF: 0 levothyroxine 50 mcg capsule 50 mcg PO QAM RF: 0 cholecalciferol (vitamin D3) [D3-2000] 2,000 unit capsule 2,000 unit PO QAM RF: 0 metoprolol succinate [Toprol XL] 25 mg tablet extended release 24 hr 25 mg PO BID RF: 0 acetaminophen [Tylenol] 325 mg Tablet 325 mg PO QID PRN (Reason: Pain) RF: 0 Referrals Referrals: Amanda Lucas CRNP [Primary Care Provider] - Discharge Problem: Fatigue Qualifiers: Fatigue type: unspecified Qualified Code(s): R53.83 - Other fatigue
[2020-12-07] MEDS ORDERED: POTASSIUM PHOS 3 MMOL/1 ML INFUSION IV STA (19:04)
[2020-12-07] MEDS ORDERED: POTASSIUM PHOSPHATE 15 MMOL in SODIUM CHLORIDE 0.9% 250 ML IV ONE (19:45)
--- NOTE | 2020-12-07 20:01 | CT Scan Report ---
CT SCAN OF THE BRAIN WITHOUT IV CONTRAST CLINICAL HISTORY: Dizziness. COMPARISON STUDY: No priors. TECHNIQUE: Unenhanced axial CT scan of the brain is performed from the vertex to the skull base. A do se lowering technique was utilized adhering to the principles of ALARA. CT DOSE: 537.48 mGy.cm FINDINGS: Brain parenchyma: There is mild age-related involutional changes. There is no hemorrhage, mass effect , or evidence of acute territorial ischemia by CT criteria. Turner-white matter differentiation is pres erved. No extra-axial fluid collection is seen. Mineralization is noted in the basal ganglia. Ventricles, sulci, cisterns: Prominent secondary to involutional change. Intracranial vasculature: There is atherosclerotic calcification of the cavernous carotid arteries. Calvarium: Unremarkable. Sinuses and mastoids: The visualized paranasal sinuses are clear. The mastoid air cells are well pneu matized. Orbits: The bony orbits are grossly intact. IMPRESSION: There is no hemorrhage, mass effect, or evidence of acute territorial ischemia by CT yara israel. ACT 112: Negative or not required by law. Electronically signed by: Nick Casas M.D. 12/07/2020 8:00 PM
[2020-12-07 21:12] LABS: Appearance Urine Clear (Clear); Bacteria Urine Automated Negative (Negative); Bilirubin Urine Negative (Negative); Blood Urine Negative (Negative); Color Urine Yellow; Glucose Urine UA Negative (Negative); Ketones Urine Trace (Negative); Leukocyte Esterase Urine 1+ (Negative); Nitrite Urine Negative (Negative); Protein Urine 1+ (Negative); RBC Urine Automated 0-4 /hpf (0-4); Specific Gravity Urine 1.032 (1.000-1.030); Urobilinogen Urine Negative (Negative); WBC Urine Automated >30 /hpf (0-5)
--- NOTE | 2020-12-07 22:29 | History & Physical Report ---
Date of Service December 07, 2020 Assessment & Plan (1) Hypokalemia: Patient is a 65 year old female with PMHx metastatic endometrial adenocarcinoma with recurrence and HTN who presents after 1 month history of continued nausea and diarrhea after starting Keytrada chemotherapy. Diarrhea and Nausea -Suspect secondary side effect of chemotherapy -Patient noting slight improvement. -Does not want to continue Keytrada due to symptoms, would recommend discussion with her outpatient oncologist Dr. Toussaint -Will order for PRN Cholestyramine should diarrhea return and worsen -PRN zofran Hypokalemia -Potassium 2.3 in ED with 2.6 on repeat at admission -Given roughly 30meq K in ED between K-Maciel and K-Phos -Will supplement another 40 meq PO now and recheck in AM roughly 4 hours after administration -Replete as needed, patient may require daily supplementation if she continues with diarrhea -Repeat EKG in AM Hypophosphatemia -Phos 2.3 on admission -Repleted with 15 mmol K Phos in ED -Repeat in AM Hypomagnesemia -Mag 1.7 on admission -1g Mag given in ED -Repeat in AM Hypothyroidism -Continue home Levothyroxine Dispo: Med/Surg tele for continuous cardiac monitoring FEN: Regular diet DVT: Lovenox Code: DNR/DNI (2) Hypophosphatemia: History of Present Illness Chief Complaint: Diarrhea Primary Care Provider: DAI Phelan Patient is a 65 year old female with PMHx metastatic endometrial adenocarcinoma with recurrence and HTN who presents after 1 month history of continued nausea and diarrhea after starting Keytrada chemotherapy. Patient notes as well she had completed her radiation therapy on 11/01/20. She states that she has been having worsening diarrhea with her most recent bought yesterday and vomiting this morning. She notes fatigue as well and muscle cramps. She has not eaten anything since 8AM. She was found to be profoundly hypokalemic in the ED with potassium 2.4 in addition to a slight hypophosphatemia 2.3. She otherwise denies any fever, chills, SOB, chest pain, abdominal pain. med hx: Metastatic endometrial adenocarcinoma, HTN Surg HX: Hysterectomy, Lung biopsy, vaginal cuff biopsy Allergies Allergy/AdvReac Type Severity Reaction Status Date / Time carvedilol Allergy Mild Anxiety Verified 12/07/20 20:35 losartan Allergy Unknown TIRED AND Verified 12/07/20 20:35 "BLEEDING" - SEE NOTES BELOW codeine AdvReac Mild Headache & Verified 12/07/20 20:35 NAUSEA RIOS Inhibitors AdvReac Unknown CONSTIPATION Verified 12/07/20 20:35 - SEE NOTES BELOW erythromycin base AdvReac Unknown ABDOMINAL Verified 12/07/20 20:35 CRAMPS hydrochlorothiazide AdvReac Unknown SEVERE Verified 12/07/20 20:35 CONSTIPATION Home Medications Medication Instructions Recorded Confirmed Type cholecalciferol (vitamin D3) 50 2,000 unit PO QAM cap 03/16/19 12/07/20 History mcg (2,000 unit) capsule cranberry 400 mg capsule 400 mg PO QAM 08/04/19 12/07/20 History metoprolol succinate 25 mg 25 mg PO BID tab 10/21/19 12/07/20 History tablet,extended release 24 hr levothyroxine 50 mcg capsule 50 mcg PO QAM 10/04/20 12/07/20 History acetaminophen [Tylenol] 325 mg PO QID PRN 12/07/20 12/07/20 History Past Med/Surg History Medical History Degenerative disc disease H/O hyperthyroidism No current treatment Hypertension Malignant neoplasm of endometrium Endometrial biopsy 05/17/19 Osteoarthritis Stress bladder incontinence, female Temporomandibular joint disorder hx/no current issues Vaginal pessary present Surgical History History of colonoscopy History of total abdominal hysterectomy and bilateral salpingo-oophorectomy 06/16/2019 Dr. Young - CHRISTINA-BSO with pelvic para aortic node sampling, omenectomy. History of total right hip replacement 03/19/18: SAB x 1 at L3-L4 at [facility] S/P excision of lipoma HX OF BACK Family History Mother , 88yo Diabetes Heart failure Renal failure Hypertension Father , 93yo Colon cancer Prostate cancer Dementia Brother No problems noted. Sister Deep vein thrombosis Son No problems noted. Daughter No problems noted. 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: No Beliefs That Will Affect Care: None marital status: / Current Living Situation: Alone current occupational status: retired current occupation: Retired from [email or web address] How many Children do You have: 1 Feels Safe at Home: Yes caffeine: Yes (2 cups/day) during the past year weight has: remained stable Assistive Devices: Cane and Glasses Review of Systems Review of Systems: All systems reviewed & are unremarkable except as noted in Subjective Physical Exam Constitutional: cooperative; no acute distress Eyes: PERRL, conjunctivae normal, anicteric sclerae Respiratory: normal respiratory effort, lungs clear to auscultation Cardiovascular: RRR, no murmur, no edema Gastrointestinal (Abdomen): normal bowel sounds, soft, nontender, no hepatosplenomegaly Skin: no rashes, warm and dry Neurologic: PERRL, EOMI, accommodation nl, no face palsy, no dysarthria Psychiatric: A+Ox3, euthymic affect Results & Data Results & Data ([facility]) Vital Signs (Past 12 Hours) Vital Signs Temp Pulse Pulse Resp BP BP Pulse Ox 12/07/20 20:08 77 16 141/71 H 98 12/07/20 19:03 80 16 117/49 L 97 12/07/20 17:52 79 20 129/58 L 98 12/07/20 16:34 36.9 C 86 16 120/71 19 L Supervising Physician Co-Signing Physician Notes Attending addendum: I have physically seen this patient, have supervised the medical residents activities, and agree with the H&P unless as otherwise noted. Assessment and Plan: Diarrhea/nausea/dehydration- Patient feels that this is secondary to Keytruda and does not want to continue with it Consult oncology Dr. Toussaint Start cholestyramine twice daily with meals to control diarrhea Zofran 4 mg IV every 6 hours as needed Famotidine 20 mg IV every 12 hours Hypokalemia/hypophosphatemia- Received Klor-Con 10 mEq p.o. x1 and K-Phos 15 mmol x 1 from the ED Give another 40 mEq Klor-Con orally now Repeat BMP, magnesium and phosphorus levels in a.m. Hypomagnesemia- Magnesium 1.7 upon admission Given 1 g magnesium sulfate IV by the ED Repeat laboratories in a.m. Remaining orders and notations as noted Resident Activity Tracking Resident Involvement: Resident Care Provided Care Provided: [facility]
[2020-12-08] MEDS ORDERED: ONDANSETRON INJ 2 MG/ML 2 ML VIAL IV PRN (00:35)
[2020-12-08] MEDS ORDERED: CHOLESTYRAMINE LIGHT 4 GM PKT PO PRN (00:35)
[2020-12-08] MEDS ORDERED: POTASSIUM CHLORIDE CRTAB 20 MEQ TABCR PO STA ×2 (00:35→10:41)
[2020-12-08] MEDS ORDERED: ONDANSETRON INJ 2 MG/ML 2 ML VIAL ONE (00:56)
[2020-12-08] MEDS: LEVOTHYROXINE SODIUM 50 MCG TABLET PO SCH (05:51)
[2020-12-08 07:14] LABS: Basophils # (auto) 0.01 K/uL (0-0.2); Basophils % (auto) 0.1 %; Eosinophils # (auto) 0.11 K/uL (0-0.5); Eosinophils % (auto) 1.3 %; Hematocrit (blood only) 26.1 % (37-47); Hemoglobin 8.4 g/dL (12.0-16.0); Immature Granulocytes # (auto) 0.04 K/uL (0.00-0.02); Immature Granulocytes % (auto) 0.5 %; Lymphocytes # (auto) 0.79 K/uL (1.2-3.4); Mean Corpuscular Hemoglobin 27.9 pg (25-34); Mean Corpuscular Hgb Conc 32.2 g/dL (32-36); Mean Corpuscular Volume 86.7 fL (80-100); Mean Platelet Volume 9.2 fL (7.4-10.4); Monocytes # (auto) 0.57 K/uL (0.11-0.59); Monocytes % (auto) 6.5 %; Neutrophils # (auto) 7.22 K/uL (1.4-6.5); Neutrophils % (auto) 82.6 %; Platelet Count 486 K/uL (130-400); RDW Coefficient of Variation 21.4 % (11.5-14.5); RDW Standard Deviation 64.1 fL (36.4-46.3); Red Blood Count 3.01 M/uL (4.2-5.4); White Blood Count 8.74 K/uL (4.8-10.8)
[2020-12-08 07:37] LABS: BUN Creatinine Ratio 17.7 (10-20); Calcium 7.6 mg/dl (8.5-10.1); Creatinine Clr Calc Pharmacy 73.2 ml/min; Est GFR (African American) 109.9 ml/min; Est GFR (Non-African American) 94.8 ml/min; Magnesium 1.8 mg/dl (1.8-2.4); Phosphorus 3.3 mg/dl (2.5-4.9)
[2020-12-08 07:58] LABS: Anisocytosis Present; Polychromasia 1+
[2020-12-08] MEDS: ENOXAPARIN INJ 40 MG/0.4 ML SYR SQ SCH (08:13)
[2020-12-08] MEDS: CHOLECALCIFEROL 1,000 UNITS 25 MCG TAB PO SCH (08:13)
[2020-12-08] MEDS ORDERED: MAGNESIUM SULFATE / D5W 1 GM/100 ML BAG IV ONE (11:00)
[2020-12-08] MEDS: POTASSIUM CHLORIDE / WTR 10 MEQ/100 ML PLCT IV SCH ×2 (11:30→13:14)
--- NOTE | 2020-12-08 17:20 | Hospitalist Progress Note ---
Date of Service December 08, 2020 Assessment & Plan (1) Hypokalemia: cont to replete repeat K in am (2) Hypomagnesemia: earlier in November was 1.5 now 1.8 will try to get mag level closer to 2 to help with hypokalemia (3) Colitis: recent CT abd/pelvis with considerable colitis infectious vs inflammatory vs other no stools since admission but if she has one will check cdiff and stool cx it is very possible it is immune-mediated from keytruda despite not having keytruda for several months the half-life is 22days (!) and 1-2% of people experience colitis from such has seen [facility] for her chronic GI symptoms can't rule out post-cholecystectomy state is contributing to diarrhea but of course it would not cause a colitis consider steroids for immune-mediate colitis if infectious w/u is negative (4) Hypertension: not on meds and BPs wnl (5) Prolonged Q-T interval on ECnd to severe hypokalemia repeat EKG Today with improved QTc now that K level is better tele has been wnl with no dysrhythmia (6) Malignant neoplasm of endometrium: h/o CHRISTINA/BSO [facility]/p Keytruda in the past - last dose earlier this spring (7) Anemia: check ferritin, b12, folate in am recheck hb in am likely due to cancer (8) H/O hyperthyroidism: now with hypothyroidism TSH wnl cont synthroid (9) DVT prophylaxis: lovenox daily PT eval to ensure safe and strong enough for home Admission and Anticipated Discharge Date Admission Date: December 07, 2020 Subjective patient feeling much better today. tolerating eating/drinking. was eating beef and drinking coke during the visit. no further vomiting. no diarrhea since admission. no abdominal pain. we had lengthy discussion about causes of her symptoms. she is very concerned that everything is due to her Keytruda. last infusion - August?? tele overnight wnl; NSR. Review of Systems Constitutional: no fever and no chills Respiratory: no dyspnea Cardiovascular: no chest pain Gastrointestinal: no abdominal pain and no blood in stools Physical Exam Constitutional: no acute distress and no altered mental status ENMT: external ear and nose normal, oropharynx normal Respiratory: normal respiratory effort, lungs clear to auscultation Cardiovascular: Rate/Rhythm: regular rate and regular rhythm Heart Sounds: normal S1 and normal S2 Vessels: posterior tibial pulses present and dorsalis pedis pulses present; no JVD Extremities: no edema Gastrointestinal (Abdomen): normal bowel sounds, soft, nontender, no hepatosplenomegaly Psychiatric: Orientation: alert and oriented x 3 Results & Data Results & Data ([facility]) Vital Signs (Past 12 Hours) Vital Signs Temp Pulse Pulse Resp BP Pulse Ox 12/08/20 16:20 101 H 12/08/20 14:50 36.7 C 88 18 119/75 94 12/08/20 11:59 36.7 C 83 20 125/69 98 12/08/20 08:20 81 12/08/20 07:35 37.2 C 93 H 20 123/71 97 K 3 Mag 1.8 Cr wnl Na wnl PG Care Time/CCT Total # of Minutes Spent Total Time Spent with Patient: Total time spent is greater than 50% in coordination of care (as documented) at patient's floor/unit and/or counseling patient: Coding Level of Care Code 80373 Subseq Obs Care Lvl 3 Diagnoses Hypokalemia E87.6 Hypomagnesemia E83.42 Colitis K52.9 Hypertension I10 Hypertension type: essential hypertension Prolonged Q-T interval on ECG R94.31 Malignant neoplasm of endometrium C54.1 Anemia D64.9 H/O hyperthyroidism Z86.39 DVT prophylaxis Z29.9 (1) Hypertension Hypertension type: essential hypertension Qualified Code(s): I10 - Essential (primary) hypertension
--- NOTE | 2020-12-09 01:38 | Billing Data ---
Date of Service December 09, 2020 Coding Level of Care Code 36871 OBS Care - Level 3
[2020-12-09] MEDS: LEVOTHYROXINE SODIUM 50 MCG TABLET PO SCH (06:08)
[2020-12-09 07:24] LABS: Hematocrit (blood only) 26.1 % (37-47); Hemoglobin 8.2 g/dL (12.0-16.0)
[2020-12-09 07:50] LABS: BUN Creatinine Ratio 20.1 (10-20); Calcium 7.6 mg/dl (8.5-10.1); Creatinine Clr Calc Pharmacy 75.7 ml/min; Est GFR (African American) 111.2 ml/min; Est GFR (Non-African American) 95.9 ml/min
[2020-12-09 07:56] LABS: Ferritin 464.7 ng/ml (8-388)
[2020-12-09 08:06] LABS: Folate (Folic Acid) 10.5 ng/ml (>5.38)
[2020-12-09] MEDS: ENOXAPARIN INJ 40 MG/0.4 ML SYR SQ SCH (08:09)
[2020-12-09] MEDS: CHOLECALCIFEROL 1,000 UNITS 25 MCG TAB PO SCH (08:09)
[2020-12-09 10:13] LABS: Iron 20 mcg/dl (35-150); Transferrin 104 mg/dl (200-360); Transferrin Percent Saturation 14 % (15-50)
[2020-12-09] MEDS ORDERED: IRON SUCROSE 400 MG in SODIUM CHLORIDE 0.9% 250 ML IV ONE (11:00)
[2020-12-09] MEDS: RASPBERRY SYRUP 5 ML UDP PO SCH ×2 (12:49→17:31)
[2020-12-09] MEDS: VANCOMYCIN HCL 125 MG/2.5ML SOLN PO SCH ×2 (12:49→17:31)
[2020-12-09 13:25] LABS: Cdiff Antigen Positive; Cdiff Toxin A+B Negative Cdiff Toxin (Negative)
--- NOTE | 2020-12-09 18:14 | Hospitalist Progress Note ---
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 THUS - will Rx with vanco 125mg PO QID x 10days. follows w/ [facility] (Dr Sutton) and will arrange f/u with him 1-2 weeks post-dc. see "colitis" below for more information. (2) Colitis: recent CT abd/pelvis with considerable colitis c diff gene + but toxin negative - see discussion above -- planning to Rx this I suggested to her that if Rx of c diff doesn't lead to resolution of chronic diarrhea she may need Rx for immune-mediated colitis from keytruda despite not having keytruda for several months the half-life is 22days (!) and 1-2% of people experience colitis from such this would require steroid therapy for resolution will have her f/u with Dr Sutton post-d/c and defer Rx to him if symptoms persist stool cx pending but suspect will be negative (3) Iron deficiency: IV venofer today repeat again in am f/u with Cristy ELIZABETH in [facility] (4) Hypokalemia: repleted and resolved (5) Hypomagnesemia: resolved (6) Hypertension: not on meds and BPs wnl (7) Prolonged Q-T interval on ECnd to severe hypokalemia QTc now normal s/p normalization of low K (8) Malignant neoplasm of endometrium: h/o CHRISTINA/BSO [facility] Keytruda in the past - last dose earlier this spring (9) Anemia: b12/folate wnl evidence of Fe deficiency -- see above repeat h/h in am for stability (10) H/O hyperthyroidism: now with hypothyroidism TSH wnl cont synthroid (11) DVT prophylaxis: lovenox daily PT eval to ensure safe and strong enough for home change to full admission status from observation status due to c.diff Admission and Anticipated Discharge Date Admission Date: December 09, 2020 Subjective patient feeling good today had BM this am -- VERY Large and "mushy" but not christiano water or bloody no abdominal pain we had lengthy discussion about the cdiff testing and ramifications of such no new complaints tele overnight wnl Review of Systems Constitutional: no fever and no chills Respiratory: no cough and no dyspnea Cardiovascular: no chest pain Gastrointestinal: no abdominal pain, no nausea, no vomiting and no blood in stools Physical Exam Constitutional: no acute distress and no altered mental status ENMT: external ear and nose normal, oropharynx normal Respiratory: normal respiratory effort, lungs clear to auscultation Cardiovascular: Rate/Rhythm: regular rate and regular rhythm Heart Sounds: normal S1 and normal S2 Vessels: posterior tibial pulses present and dorsalis pedis pulses present; no JVD Extremities: no edema Gastrointestinal (Abdomen): normal bowel sounds, soft, nontender, no hepatosplenomegaly Psychiatric: Orientation: alert and oriented x 3 Results & Data Results & Data ([facility]) Vital Signs (Past 12 Hours) Vital Signs Temp Pulse Pulse Resp BP BP Pulse Ox 12/09/20 14:42 36.8 C 96 H 18 117/77 96 12/09/20 14:00 88 12/09/20 11:44 37.1 C 89 20 120/71 98 12/09/20 08:00 80 12/09/20 07:45 36.9 C 83 18 122/80 98 Laboratory Results Laboratory Results - last 24 hr 12/09/20 12/09/20 12/09/20 06:59 06:59 06:59 Hgb 8.2 L Hct 26.1 L Sodium 135 L Potassium 4.0 D Chloride 102 Carbon Dioxide 27 Anion Gap 6.0 BUN 11 Creatinine 0.57 L Est Cr Clr Drug Dosing 75.7 Est GFR ( Amer) 111.2 Est GFR (Non-Af Amer) 95.9 BUN/Creatinine Ratio 20.1 H Glucose 96 Calcium 7.6 L Iron Transferrin Transferrin % Sat Ferritin 464.7 H Vitamin B12 1755 H Folate 10.50 Stl C. diff Tox B Gene Stl C.difficile Tox A&B 12/09/20 12/09/20 06:59 09:55 Hgb Hct Sodium Potassium Chloride Carbon Dioxide Anion Gap BUN Creatinine Est Cr Clr Drug Dosing Est GFR ( Amer) Est GFR (Non-Af Amer) BUN/Creatinine Ratio Glucose Calcium Iron 20 L Transferrin 104 L Transferrin % Sat 14 L Ferritin Vitamin B12 Folate Stl C. diff Tox B Gene Positive Cdiff Gene H Stl C.difficile Tox A&B Negative Cdiff Toxin PG Care Time/CCT Total # of Minutes Spent Total Time Spent with Patient: Total time spent is greater than 50% in coordination of care (as documented) at patient's floor/unit and/or counseling patient: Coding Level of Care Code 71622 Subseq Hosp Care Lvl 3 Diagnoses C. difficile colitis A04.72 Colitis K52.9 Iron deficiency E61.1 Hypokalemia E87.6 Hypomagnesemia E83.42 Hypertension I10 Hypertension type: essential hypertension Prolonged Q-T interval on ECG R94.31 Malignant neoplasm of endometrium C54.1 Anemia D64.9 H/O hyperthyroidism Z86.39 DVT prophylaxis Z29.9 (1) Hypertension Hypertension type: essential hypertension Qualified Code(s): I10 - Essential (primary) hypertension
[2020-12-10] MEDS: VANCOMYCIN HCL 125 MG/2.5ML SOLN PO SCH ×3 (00:32→12:09)
[2020-12-10] MEDS: RASPBERRY SYRUP 5 ML UDP PO SCH ×3 (00:32→12:09)
[2020-12-10] MEDS ORDERED: IBUPROFEN 200 MG TAB PO PRN (02:39)
[2020-12-10] MEDS: LEVOTHYROXINE SODIUM 50 MCG TABLET PO SCH (06:16)
[2020-12-10 07:33] LABS: Hematocrit (blood only) 25.6 % (37-47); Hemoglobin 8.2 g/dL (12.0-16.0)
[2020-12-10] MEDS ORDERED: IRON SUCROSE 300 MG in SODIUM CHLORIDE 0.9% 250 ML IV ONE (08:00)
[2020-12-10 08:07] LABS: BUN Creatinine Ratio 18.9 (10-20); Calcium 7.5 mg/dl (8.5-10.1); Creatinine Clr Calc Pharmacy 75.6 ml/min; Est GFR (African American) 108.1 ml/min; Est GFR (Non-African American) 93.3 ml/min; Potassium 3.9 mmol/L (3.5-5.1)
[2020-12-10] MEDS: CHOLECALCIFEROL 1,000 UNITS 25 MCG TAB PO SCH ×2 (08:57→09:02)
[2020-12-10] MEDS: ENOXAPARIN INJ 40 MG/0.4 ML SYR SQ SCH (08:59)
[2020-12-10 11:12] VITALS: PULSE 82; TEMP 98.4
--- NOTE | 2020-12-10 12:31 | Electrocardiogram Report ---
Test Reason : Blood Pressure : / mmHG Vent. Rate : 081 BPM Atrial Rate : 081 BPM P-R Int : 162 ms QRS Dur : 068 ms QT Int : 486 ms P-R-T Axes : 037 027 025 degrees QTc Int : 564 ms Normal sinus rhythm Cannot rule out Anterior infarct (cited on or before 25-JUN-2020) Abnormal ECG When compared with ECG of 25-JUN-2020 10:47, Nonspecific T wave abnormality, worse in Inferior leads Nonspecific T wave abnormality, worse in Anterolateral leads QT has lengthened Confirmed by Rodri Navarrete ([id number]) on 12/10/2020 12:30:52 PM Referred By: Cristy Gao Confirmed By:Rodri Navarrete
[2020-12-10 12:44] VITALS: BP 107/68
--- NOTE | 2020-12-10 12:52 | Discharge Summary ---
Date of Service date of admission - December 07, 2020 date of discharge - December 10, 2020 Admission HPI Per Admitting Provider Patient is a 65 year old female with PMHx metastatic endometrial adenocarcinoma with recurrence and HTN who presents after 1 month history of continued nausea and diarrhea after starting Keytrada chemotherapy. Patient notes as well she had completed her radiation therapy on 11/01/20. She states that she has been having worsening diarrhea with her most recent bought yesterday and vomiting this morning. She notes fatigue as well and muscle cramps. She has not eaten anything since 8AM. She was found to be profoundly hypokalemic in the ED with potassium 2.4 in addition to a slight hypophosphatemia 2.3. She otherwise denies any fever, chills, SOB, chest pain, abdominal pain. med hx: Metastatic endometrial adenocarcinoma, HTN Surg HX: Hysterectomy, Lung biopsy, vaginal cuff biopsy Principal Diagnosis 1. severe hypokalemia 2nd to GI losses - resolved 2. colitis - possibly 2nd to c.diff; possibly immune-induced by Keytruda 3. metastatic endometrial cancer Discharge Exam Constitutional no acute distress and no altered mental status ENMT external ear and nose normal, oropharynx normal Respiratory normal respiratory effort, lungs clear to auscultation Cardiovascular Rate/Rhythm: regular rate and regular rhythm Heart Sounds: normal S1 and normal S2 Vessels: posterior tibial pulses present and dorsalis pedis pulses present; no JVD Extremities: no edema Gastrointestinal (Abdomen) normal bowel sounds, soft, nontender, no hepatosplenomegaly Psychiatric Orientation: alert and oriented x 3 Discharge Data Allergies Allergy/AdvReac Type Severity Reaction Status Date / Time carvedilol Allergy Mild Anxiety Verified 12/07/20 20:35 losartan Allergy Unknown TIRED AND Verified 12/07/20 20:35 "BLEEDING" - SEE NOTES BELOW codeine AdvReac Mild Headache & Verified 12/07/20 20:35 NAUSEA RIOS Inhibitors AdvReac Unknown CONSTIPATION Verified 12/07/20 20:35 - SEE NOTES BELOW erythromycin base AdvReac Unknown ABDOMINAL Verified 12/07/20 20:35 CRAMPS hydrochlorothiazide AdvReac Unknown SEVERE Verified 12/07/20 20:35 CONSTIPATION Procedures Performed IV venofer x 2 doses Ordered Studies 1. CT abd/pelvis (performed as outpatient on 12/06/20) - IMPRESSION: 1. Interval development of multiple enhancing/hyperattenuating lesions within liver likely representing progression of metastatic disease. 2. Collapsed, wall thickening and mild surrounding fat stranding of the proximal aspect of the large bowel which might represent colitis. Please correlate this findings with clinical presentation of abdominal pain. 3. Hepatic steatosis. 4. Questionable hypoattenuating lesion within left renal parenchyma. Further evaluation with renal ultrasound might be considered. 5. Diverticulosis of sigmoid colon, no definite evidence of diverticulitis however evaluation of the pelvic region is limited due to beam hardening artifact. 6. No definite pathological lymphadenopathy. 7. Osteopenia. 2. CT head - IMPRESSION: There is no hemorrhage, mass effect, or evidence of acute territorial ischemia by CT criteria. Hospital Course (1) C. 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 THUS elected to Rx with vancomycin 125mg PO QID x 10 days. Patient follows with [facility] (Dr Mack Sutton) and we recommended f/u with him 1- 2 weeks post-discharge. (2) Colitis: 12/06/20 CT abd/pelvis with colitis. C diff gene was + but toxin negative - see discussion above regarding plan of care for this. I suggested to her that if Rx of c diff doesn't lead to resolution of chronic diarrhea she may need Rx for immune-mediated colitis from Keytruda. Despite not having Keytruda for several months the half-life is 22days and 1-2% of people experience colitis from such based on pharmacy data/study. This would require steroid therapy for resolution. Will have patient f/u with Dr Sutton post-d/c and defer Rx to him if symptoms pe rsist. Stool culture during this admission was NEGATIVE. (3) Iron deficiency: Patient had low iron level and low transferrin saturation of 14%. Thus, IV venofer x 2 doses was given while here. Tolerated both infusions without difficulty. B12/folate levels were normal. Discharge hemoglobin was 8.2. She had no evidence of any GI bleeding while here. f/u with Cristy [facility]AB[facility] in [facility] for ongoing Rx of her cancer and anemia. (4) Hypokalemia: SEVERE. 2.4 at time of admission. Repleted with IV and PO supplementation. Fully resolved by discharge with K level of 3.9 on 12/10/20. Low potassium was 2nd to GI losses (vomiting/diarrhea) and poor oral intake in the days/weeks leading up to this admission. Mag level was normal at discharge. Advised BOTH a potassium supplement and magnesium supplement at discharge. (5) Hypomagnesemia: history of. mag level 1.8 during this stay. discharged home on magnesium supplementation. (6) Hypertension: BPs were quite normal during her stay. She was advised to CUT BACK her metoprolol xl from 25mg BID to 25mg qam. (7) Prolonged Q-T interval on ECnd to severe hypokalemia. QTc normalized s/p normalization of her hypokalemia. (8) Malignant neoplasm of endometrium: h/o CHRISTINA/BSO. follows with [facility] - [facility] Herring and Dr Sergei Toussaint. s/p Keytruda in the past - last dose earlier this spring. Notable on recent CT - mets to the liver. (9) Anemia: b12/folate wnl evidence of Fe deficiency -- see above Hb 8.2 at discharge (10) H/O hyperthyroidism: now with hypothyroidism TSH wnl at 4.3 this admission continue synthroid Total Time Total Time Spent Total Time Spent (In Minutes): 40 Total Time Includes: Examination of the Patient, Discharge Planning, Medication Reconciliation and Communication With Other Providers Discharge Plan Discharge Items Patient Disposition: Home - Self-Care Reason For Visit: HYPOKALEMIA (Low potassium) Discharge Diagnosis: 1. severely low potassium - resolved; likely due to combination of poor oral intake, vomiting, and diarrhea 2. colitis, possibly due to c.diff infection 3. anemia with iron deficiency Activity: Resume your previous activity Non-emergency contact: Primary Care Provider, Merchant Patroller and Oncologist Call non-emergency contact if: you have any medication questions, your symptoms worsen, your pain is not controlled, your pain is worsening, your pain is unusual for you, your pain is concerning for you and you have a fever Follow-up/Referrals: Amanda Lucas CRNP [Primary Care Provider] - 12/12/20 2:30 pm Mack Sutton [Physician] - 12/14/20 3:20 pm (THIS APPOINTMENT WILL BE WITH SAJI BAUTISTA) Diet: Low Fiber Addtl Attending Provider Instructions: Mrs Johnston, You were admitted to the hospital for recent vomiting, diarrhea, and inability to eat/drink. Your potassium was very low at time of admission requiring large amounts of IV and oral potassium to normalize the level. Your potassium and magnesium levels are indeed normal at time of discharge. We checked your stools for infection given the ongoing diarrhea as well as the recent CT scan of the abdomen showing colitis (sick colon). One of two c diff tests came back positive. It is best to treat the c diff to ensure that this bacterium is not causing all of your GI symptoms. If your diarrhea and GI symptoms persist despite treating the cdiff you may need treatment for "keytruda immune induced colitis" which would require prednisone. PLEASE DO NOT TAKE ANY PREDNISONE AT THIS TIME (it may have been called into the pharmacy by the oncology team but do not take at this time). Dr Sutton from [facility], along with your oncologist, would need to decide in the future if the prednisone is necessary. Please know that the exact time period when you are no longer contagious from c.diff is uncertain. However, it is thought that when the stools normalize (normal bulk, normal shape, no further diarrhea, etc) is when the contagiousness is largely resolved. Recommendations - 1. take vancomycin capsule 125mg FOUR times daily for 10 days. 2. take colestipol 1gram daily NEEDED for diarrhea. 3. take potassium supplement once daily. 4. take magnesium supplement once daily. 5. please LOWER your metoprolol succinate from twice daily to once daily dos ing. Your blood pressures were largely normal without this medication while hospitalized. 6. plenty of good handwashing - soap/water x 20 seconds - frequently at home, and especially after using the toilet. 7. know that alcohol-based hand sanitizers do NOT kill c.diff; only soap & water handwashing does. 8. wash linens, bedsheets, and underwear on hot water cycle for the next 2 weeks to kill any remaining c diff spores. 9. bleach wipes and diluted bleach can be used to clean bathrooms, door handles/knobs, etc to kill c. diff in your home. 10. no need to take oral iron supplement at home; additional IV iron can be given to you in the cancer clinic, as needed. 11. low fiber diet for the next week (see handout). Follow-up - see separate section Return to [facility] if - * you have fever over 100 degrees * you have significant vomiting * you have recurrent, severe diarrhea * you are unable to eat/drink/keep liquids down * you have shortness of breath or chest pain * any other concerns Continue to feel better! -Dr Choe Pending Studies at Discharge: Yes Studies:: bacterial stool culture but thus far negative (no salmonella, e.coli, etc) Stand-Alone Forms: My [facility], Smoking Cessation Medications and DC Order Prescriptions: New vancomycin 125 mg capsule 125 mg PO Q6H 10 Days Qty: 40 RF: 0 colestipol 1 gram tablet 1 g PO DAILY PRN (Reason: diarrhea) Qty: 30 RF: 0 magnesium oxide 400 mg (241.3 mg magnesium) tablet 400 mg PO DAILY Qty: 30 RF: 1 potassium chloride 10 mEq tablet extended release 10 meq PO DAILY Qty: 30 RF: 1 Continued cranberry 400 mg capsule 400 mg PO QAM RF: 0 levothyroxine 50 mcg capsule 50 mcg PO QAM RF: 0 cholecalciferol (vitamin D3) [D3-2000] 2,000 unit capsule 2,000 unit PO QAM RF: 0 acetaminophen [Tylenol] 325 mg Tablet 325 mg PO QID PRN (Reason: Pain) RF: 0 Changed metoprolol succinate [Toprol XL] 25 mg tablet extended release 24 hr 25 mg PO QAM Qty: 0 RF: 0 Discharge Orders: Discharge Order (Routine); Ordered 12/10/20 Ordered By: Florian Eduardo/Other Patient Handouts: Low-Fiber Diet, Clostridium Difficile Infection, What Is C. Diff? Admission Data Admit Date/Time: 12/09/20 14:59 Attending Provider: Florian Choe Admit Provider: Demond Ross Primary Care Provider: Amanda Lucas Other Providers: Enrico Cope Other Interventions: Discharge Summary Assessment (RN) Last Done: 12/10/20 12:43 Coding Level of Care Code D/C Day Management >30 mins Diagnoses C. difficile colitis A04.72 Colitis K52.9 Iron deficiency E61.1 Hypokalemia E87.6 Hypomagnesemia E83.42 Hypertension I10 Hypertension type: essential hypertension Prolonged Q-T interval on ECG R94.31 Malignant neoplasm of endometrium C54.1 Anemia D64.9 H/O hyperthyroidism Z86.39
--- NOTE | 2020-12-10 13:45 | Electrocardiogram Report ---
Test Reason : Blood Pressure : / mmHG Vent. Rate : 089 BPM Atrial Rate : 089 BPM P-R Int : 152 ms QRS Dur : 060 ms QT Int : 360 ms P-R-T Axes : 052 056 060 degrees QTc Int : 438 ms Normal sinus rhythm Low voltage QRS Cannot rule out Anterior infarct (cited on or before 25-JUN-2020) Abnormal ECG When compared with ECG of 07-DEC-2020 17:04, (unconfirmed) Nonspecific T wave abnormality, improved in Lateral leads QT has shortened Confirmed by Rodri Navarrete ([id number]) on 12/10/2020 1:45:37 PM Referred By: Cristy Gao Confirmed By:Rodri Navarrete
[2020-12-10 15:08] VITALS: O2SAT 100
== END 2020-12-10 14:42 | disposition home or self-care (01) ==
LOC: 2W 16:31 → ED 16:31 → SUATTDRO 22:52 → 2W 23:29

== ENCOUNTER 2021-01-04 13:07 | Inpatient (IN) ==
--- NOTE | 2021-01-04 14:29 | Emergency Department Note ---
History of Present Illness General Chief complaint: Weakness Time Seen by Provider: 01/04/21 14:20 History of Present Illness Provider complaint: Weakness Onset (ago): month(s) Exacerbated By: + movement Associated symptoms: + fever/chills, + loss of appetite and + malaise This is a 65-year-old female who presents today complaining of weakness. Patient states she has been weak since July, and her prior evaluations have concluded that her weakness is secondary to low electrolytes specifically potassium and magnesium per her report. Patient states she does not eat or drink much, is frequently cold on the does not check for any fever. She states over the course of the last several months she has passed out several times. She denies any injury related to the sudden collapse and fall. She states the last episode of syncope and fall was today at noon. She states she was at home when this happened and when she woke up she got up and contacted her neighbor who suggested she come in for evaluation. Patient denies any focal pain or other change in medications. Patient states prior medications she had been on for cancer treatment "messed me up". Patient states she has most recently been constipated, denies any other change in urine. Denies black or bloody stools. Patient denies any trouble breathing or recent URI symptoms. Patient states she does typically feel the episodes coming on where she feels increasing weakness and dizziness prior to passing out. Patient states she previously cannot take her potassium supplement at home as it makes her nauseated. Pt seen during a time of high acuity and national emergency pandemic while wearing PPE. Home Medications Medication Instructions Recorded Confirmed Type cranberry 400 mg capsule 400 mg PO QAM 08/04/19 01/04/21 History levothyroxine 50 mcg capsule 50 mcg PO QAM 10/04/20 01/04/21 History acetaminophen 325 mg tablet 325 mg PO QID PRN 12/07/20 01/04/21 History (Tylenol) colestipol 1 gram tablet 1 g PO DAILY PRN #30 tab 12/10/20 01/04/21 Rx magnesium oxide 400 mg (241.3 mg 400 mg PO DAILY #30 tab 12/10/20 01/04/21 Rx magnesium) tablet dexamethasone 4 mg tablet 4 mg PO UD 01/04/21 01/04/21 History ondansetron HCl 4 mg tablet 4 mg PO TID PRN 01/04/21 01/04/21 History prochlorperazine maleate 10 mg 10 mg PO Q6 PRN 01/04/21 01/04/21 History tablet Allergies Allergy/AdvReac Type Severity Reaction Status Date / Time carvedilol Allergy Mild Anxiety Verified 01/04/21 15:46 losartan Allergy Unknown TIRED AND Verified 01/04/21 15:46 "BLEEDING" - SEE NOTES BELOW codeine AdvReac Mild Headache & Verified 01/04/21 15:46 NAUSEA RIOS Inhibitors AdvReac Unknown CONSTIPATION Verified 01/04/21 15:46 - SEE NOTES BELOW erythromycin base AdvReac Unknown ABDOMINAL Verified 01/04/21 15:46 CRAMPS hydrochlorothiazide AdvReac Unknown SEVERE Verified 01/04/21 15:46 CONSTIPATION Past Med/Surg History Medical History (Updated 01/05/21 @ 22:31 by Elisa Chatman DO) Degenerative disc disease Dizziness Hypophosphatemia Malignant neoplasm of endometrium Endometrial biopsy 05/17/19 Osteoarthritis Prolonged Q-T interval on ECG Stress bladder incontinence, female Temporomandibular joint disorder hx/no current issues Vaginal pessary present Surgical History History of colonoscopy History of total abdominal hysterectomy and bilateral salpingo-oophorectomy 06/16/2019 Dr. Hector VASQUEZ-BSO with pelvic para aortic node sampling, omenectomy. History of total right hip replacement 03/19/18: SAB x 1 at L3-L4 at [facility] S/P excision of lipoma HX OF BACK Family History Mother , 88yo Diabetes Heart failure Renal failure Hypertension Father , 93yo Colon cancer Prostate cancer Dementia Brother No problems noted. Sister Deep vein thrombosis Son No problems noted. Daughter No problems noted. Denies family history of Ovarian cancer Social History Smoking Status: Never smoker Second Hand Exposure: No; Hx Alcohol Use: No Hx Substance Use: No Preferred Language: Spanish Communication Ability: Effective Visual Impairment: No Limitations Hearing Ability: Normal Barrel Filler Required: No Beliefs That Will Affect Care: None marital status: / Current Living Situation: Alone Current Living Situation Comment: current occupational status: retired current occupation: Retired from [employer] How many Children do You have: 1 Feels Safe at Home: Yes caffeine: Yes (2 cups/day) during the past year weight has: remained stable Assistive Devices: Glasses Review of Systems A total of 10 systems reviewed and were otherwise negative All systems reviewed & are unremarkable except as noted in HPI & below Physical Exam Vital Signs Vital Signs - 24 hr 01/04/21 13:10 01/04/21 13:16 01/04/21 13:30 Temperature 36.3 C L Temperature Source Oral Pulse Rate 91 H 89 85 Pulse Rate [Left Apical] 85 Pulse Rate from SpO2 Sensor 89 85 Pulse Rhythm Regular Pulse Rhythm [Left Apical] Pulse Strength Normal Pulse Strength [Left Apical] Respiratory Rate 18 18 21 Respiratory Effort / Characteristics Non-Labored Spontaneous Non-Labored Spontaneous Respiratory Depth Normal Normal Respiratory Pattern Regular Regular Blood Pressure 139/82 139/82 148/79 H Blood Pressure [Right Arm] 148/79 H Blood Pressure Mean 101 101 102 Blood Pressure Mean [Right Arm] 102 Blood Pressure Position Lying Blood Pressure Position [Right Arm] Lying Pulse Oximetry 98 98 97 Oxygen Delivery Method Room Air Room Air Sepsis Recent Fever Within 48 Hours No Sepsis New/Unexplained Change in Mental Status N/A Sepsis Action Taken by Nursing No Action Required 01/04/21 14:00 01/04/21 14:30 01/04/21 15:00 Temperature Temperature Source Pulse Rate 87 100 H 89 Pulse Rate [Left Apical] 85 91 H Pulse Rate from SpO2 Sensor 88 100 H 93 H Pulse Rhythm Pulse Rhythm [Left Apical] Regular Pulse Strength Pulse Strength [Left Apical] Normal Respiratory Rate 20 19 Respiratory Effort / Characteristics Non-Labored Spontaneous Non-Labored Spontaneous Respiratory Depth Normal Normal Respiratory Pattern Regular Regular Blood Pressure 138/75 135/53 L 141/75 H Blood Pressure [Right Arm] 138/75 141/75 H Blood Pressure Mean 96 80 97 Blood Pressure Mean [Right Arm] 96 97 Blood Pressure Position Blood Pressure Position [Right Arm] Lying Pulse Oximetry 99 99 93 Oxygen Delivery Method Room Air Room Air Sepsis Recent Fever Within 48 Hours Sepsis New/Unexplained Change in Mental Status Sepsis Action Taken by Nursing 01/04/21 15:30 01/04/21 15:52 01/04/21 16:00 Temperature Temperature Source Pulse Rate 95 H 113 H 90 Pulse Rate [Left Apical] Pulse Rate from SpO2 Sensor 113 H 87 Pulse Rhythm Pulse Rhythm [Left Apical] Pulse Strength Pulse Strength [Left Apical] Respiratory Rate 20 18 Respiratory Effort / Characteristics Respiratory Depth Respiratory Pattern Blood Pressure 145/75 H 158/88 H 142/85 H Blood Pressure [Right Arm] Blood Pressure Mean 98 111 104 Blood Pressure Mean [Right Arm] Blood Pressure Position Blood Pressure Position [Right Arm] Pulse Oximetry 98 99 Oxygen Delivery Method Sepsis Recent Fever Within 48 Hours Sepsis New/Unexplained Change in Mental Status Sepsis Action Taken by Nursing GENERAL: alert, uncomfortable appearing, well nourished, no distress, non-toxic EYE EXAM: normal conjunctiva, PERRL and EOM's grossly intact OROPHARYNX: no exudate, no erythema, lips, buccal mucosa, and tongue normal and mucous membranes are moist NECK: supple, no nuchal rigidity, no adenopathy, non-tender LUNGS: Clear to auscultation. Normal chest wall mechanics, no w/r/r HEART: no murmurs, S1 normal and S2 normal ABDOMEN: abdomen soft, non-tender, normo-active bowel sounds, no masses, no rebound or guarding. BACK: Back is symmetrical on inspection and there is no deformity, no midline tenderness, no CVA tenderness. SKIN: no rashes and no bruising UPPER EXTREMITIES: upper extremities are grossly normal. FROM, nml pulses b/l. LOWER EXTREMITIES: No pitting edema. FROM, nml pulses b/l. NEURO EXAM: Normal sensorium, cranial nerves II-XII grossly intact, normal speech, no gross weakness of arms, no gross weakness of legs. Gross sensation intact. Course Course 1526: Pt updated on results. 1722: Updated hospitalist. Patient was able to tolerate oral potassium, fluids were changed over to a potassium-containing solution. UA still pending. Administered Medications Potassium Chloride/Sodium Chloride (Normal Saline W/20 Meq Kcl) 20 meq in 1,000 mls @ 100 mls/hr IV .Q10H SUGEY Stop: 02/03/21 19:14 Last Admin: 01/05/21 16:35 Dose: 100 mls/hr Documented by: [id number] Infusion: 01/05/21 15:50 Dose: 100 mls/hr Documented by: [id number] Admin: 01/05/21 05:50 Dose: 100 mls/hr Documented by: [id number] Infusion: 01/05/21 05:50 Dose: 100 mls/hr Documented by: [id number] Admin: 01/04/21 20:06 Dose: 100 mls/hr Documented by: [id number] Ceftriaxone Sodium 1,000 mg/ (Dextrose) 50 mls @ 100 mls/hr IV DAILY SUGEY; Protocol Stop: 01/10/21 09:14 Last Infusion: 01/05/21 10:32 Dose: 0 mls/hr Documented by: [id number] Admin: 01/05/21 09:52 Dose: 100 mls/hr Documented by: [id number] Pantoprazole Sodium 40 mg/ (Dextrose) 100 mls @ 20 mls/hr IV Q5H SUGEY Stop: 02/04/21 13:32 Last Admin: 01/05/21 18:55 Dose: 8 mg/hr, 20 mls/hr Documented by: [id number] Infusion: 01/05/21 18:55 Dose: 8 mg/hr, 20 mls/hr Documented by: [id number] Admin: 01/05/21 14:06 Dose: 8 mg/hr, 20 mls/hr Documented by: [id number] Metronidazole (Flagyl) 500 mg in 100 mls @ 100 mls/hr IV Q8H SUGEY Stop: 01/15/21 18:59 Last Infusion: 01/05/21 19:54 Dose: 0 mls/hr Documented by: [id number] Admin: 01/05/21 18:49 Dose: 100 mls/hr Documented by: [id number] Levothyroxine Sodium (Levothyroxine Sodium 50 Mcg Tablet) 50 mcg PO DAILYBB SUGEY Stop: 02/04/21 06:29 Last Admin: 01/05/21 05:52 Dose: 50 mcg Documented by: [id number] Magnesium Oxide (Magnesium Oxide 400 Mg Tab) 400 mg PO DAILY SUGEY Stop: 02/04/21 08:59 Last Admin: 01/05/21 09:00 Dose: 400 mg Documented by: [id number] Potassium Chloride (Potassium Chloride Pwd 20 Meq Pack) 40 meq PO TID SUGEY Stop: 02/04/21 09:29 Last Admin: 01/05/21 19:59 Dose: 40 meq Documented by: [id number] Admin: 01/05/21 13:50 Dose: Not Given Documented by: [id number] Admin: 01/05/21 09:52 Dose: 40 meq Documented by: [id number] Discontinued Medications Sodium Chloride (Nss 1000ml) 1,000 mls @ 250 mls/hr IV .Q4H SUGEY Stop: 02/03/21 14:29 Last Admin: 01/05/21 07:31 Dose: Not Given Documented by: [id number] Infusion: 01/04/21 20:26 Dose: 0 mls/hr Documented by: [id number] Admin: 01/04/21 14:31 Dose: 250 mls/hr Documented by: [id number] Potassium Chloride/Sodium Chloride (Normal Saline W/20 Meq Kcl) 20 meq in 1,000 mls @ 250 mls/hr IV .Q4H SUGEY Stop: 02/03/21 15:14 Last Infusion: 01/04/21 20:26 Dose: 0 mls/hr Documented by: [id number] Admin: 01/04/21 15:25 Dose: 250 mls/hr Documented by: [id number] Potassium Chloride (K Maciel / Wtr) 10 meq in 100 mls @ 100 mls/hr IV Q1H STA Stop: 01/04/21 18:44 Last Infusion: 01/04/21 21:25 Dose: 0 mls/hr Documented by: [id number] Admin: 01/04/21 20:21 Dose: 100 mls/hr Documented by: [id number] Potassium Chloride (K Maciel / Wtr) 10 meq in 100 mls @ 100 mls/hr IV Q1H SUGEY Stop: 01/04/21 23:44 Last Infusion: 01/05/21 01:15 Dose: 0 mls/hr Documented by: [id number] Admin: 01/05/21 00:05 Dose: 100 mls/hr Documented by: [id number] Infusion: 01/04/21 23:53 Dose: 100 mls/hr Documented by: [id number] Admin: 01/04/21 22:53 Dose: 100 mls/hr Documented by: [id number] Infusion: 01/04/21 22:51 Dose: 100 mls/hr Documented by: [id number] Admin: 01/04/21 21:51 Dose: 100 mls/hr Documented by: [id number] Potassium Chloride (K Maciel / Wtr) 10 meq in 100 mls @ 100 mls/hr IV Q1H SUGEY Stop: 01/05/21 08:29 Last Infusion: 01/05/21 10:07 Dose: 0 mls/hr Documented by: [id number] Admin: 01/05/21 08:58 Dose: 100 mls/hr Documented by: [id number] Infusion: 01/05/21 08:54 Dose: 0 mls/hr Documented by: [id number] Admin: 01/05/21 06:47 Dose: 100 mls/hr Documented by: [id number] Infusion: 01/05/21 06:47 Dose: 100 mls/hr Documented by: [id number] Admin: 01/05/21 05:48 Dose: 100 mls/hr Documented by: [id number] Infusion: 01/05/21 05:34 Dose: 100 mls/hr Documented by: [id number] Admin: 01/05/21 04:34 Dose: 100 mls/hr Documented by: [id number] Pantoprazole Sodium 80 mg/ (Dextrose) 120 mls @ 400 mls/hr IV ONE ONE Stop: 01/05/21 13:32 Last Infusion: 01/05/21 14:26 Dose: 0 mls/hr Documented by: [id number] Admin: 01/05/21 13:50 Dose: 400 mls/hr Documented by: [id number] Potassium Chloride (K Maciel / Wtr) 10 meq in 100 mls @ 100 mls/hr IV Q1H SUGEY Stop: 01/05/21 21:59 Last Admin: 01/05/21 21:00 Dose: 100 mls/hr Documented by: [id number] Infusion: 01/05/21 20:54 Dose: 100 mls/hr Documented by: [id number] Admin: 01/05/21 19:54 Dose: 100 mls/hr Documented by: [id number] Infusion: 01/05/21 19:47 Dose: 100 mls/hr Documented by: [id number] Admin: 01/05/21 18:47 Dose: 100 mls/hr Documented by: [id number] Ioversol (Optiray 320 100ml) 94 ml IV ONCE ONE Stop: 01/05/21 07:34 Last Admin: 01/05/21 07:33 Dose: 94 ml Documented by: [id number] Potassium Chloride (Potassium Chloride Pwd 20 Meq Pack) 40 meq PO QAM SUGEY Stop: 02/03/21 15:29 Last Admin: 01/04/21 15:36 Dose: 40 meq Documented by: [id number] Critical Care Time Critical Care Time: Yes Total Critical Care Time: 35 Critical care of 35 min performed to assess and manage high likelihood of life- threatening hypokalemia, involving labs and imaging performed with assessment to evaluate hypokalemia diagnosis with frequent reassessment. This time includes bedside time, treatment discussions with patient/family/consultants, documentati on time and excludes procedure time. Medical Decision Making Differential Diagnosis Differential Diagnosis includes but is not limited to dehydration, stroke, anemia, hypoglycemia, hyponatremia, hypernatremia, urinary tract infection, pneumonia, bronchitis, sepsis, gastroenteritis, additional abdominal pathology, metabolic abnormalities and infections. Medical Records Attestation: I reviewed the patient's medical records. Home Medications Current Medication List: was personally reviewed by me Laboratory Data Attestation: I reviewed the patient's lab results. Result diagrams: 01/05/21 17:23 01/05/21 17:23 Lab Results 01/04/21 01/04/21 01/04/21 Range/Units 14:22 14:22 15:30 WBC 7.74 (4.8-10.8) K/uL RBC 2.60 L (4.2-5.4) M/uL Hgb 8.0 L (12.0-16.0) g/dL Hct 23.0 L (37-47) % MCV 88.5 (80-100) fL MCH 30.8 (25-34) pg MCHC 34.8 (32-36) g/dL RDW Std Deviation 68.2 H (36.4-46.3) fL RDW Coeff of Lewis 21.0 H (11.5-14.5) % Plt Count 367 (130-400) K/uL MPV 8.9 (7.4-10.4) fL Immature Gran % (Auto) 0.5 % Neut % (Auto) 91.1 % Lymph % (Auto) 5.0 % [place] % (Auto) 3.4 % Eos % (Auto) 0.0 % Baso % (Auto) 0.0 % Neut # (Auto) 7.05 H (1.4-6.5) K/uL Lymph # (Auto) 0.39 L (1.2-3.4) K/uL [place] # (Auto) 0.26 (0.11-0.59) K/uL Eos # (Auto) 0.00 (0-0.5) K/uL Baso # (Auto) 0.00 (0-0.2) K/uL Immature Gran # (Auto) 0.04 H (0.00-0.02) K/uL Anisocytosis Present Sodium 123 L (136-145) mmol/L Potassium 1.9 L* (3.5-5.1) mmol/L Chloride 82 L (98-107) mmol/L Carbon Dioxide 21 (21-32) mmol/L Anion Gap 20.0 H (3-11) BUN 53 H (7-18) mg/dl Creatinine 2.14 H (0.6-1.2) mg/dl Est Cr Clr Drug Dosing 22.6 ml/min Est GFR ( Amer) 26.9 ml/min Est GFR (Non-Af Amer) 23.2 ml/min BUN/Creatinine Ratio 25.0 H (10-20) Glucose 110 H (70-99) mg/dl Calcium 8.7 (8.5-10.1) mg/dl Phosphorus 2.6 (2.5-4.9) mg/dl Magnesium 2.4 (1.8-2.4) mg/dl Total Bilirubin 0.5 (0.2-1) mg/dl AST 125 H (15-37) U/L ALT 102 H (12-78) U/L Alkaline Phosphatase 172 H (45-117) U/L Troponin I 0.039 (0-0.045) ng/ml Total Protein 5.3 L (6.4-8.2) gm/dl Albumin 2.2 L (3.4-5.0) gm/dl Globulin 3.1 (2.5-4.0) gm/dl Albumin/Globulin Ratio 0.7 L (0.9-2) Lipase 116 (73-393) U/L TSH 3.640 (0.300-4.500) uIu/ml COVID-19 Eval Order Covid19 at [facility] SARS-CoV-2 (PCR) (Negative) 01/04/21 Range/Units 15:30 WBC (4.8-10.8) K/uL RBC (4.2-5.4) M/uL Hgb (12.0-16.0) g/dL Hct (37-47) % MCV (80-100) fL MCH (25-34) pg MCHC (32-36) g/dL RDW Std Deviation (36.4-46.3) fL RDW Coeff of Lewis (11.5-14.5) % Plt Count (130-400) K/uL MPV (7.4-10.4) fL Immature Gran % (Auto) % Neut % (Auto) % Lymph % (Auto) % [place] % (Auto) % Eos % (Auto) % Baso % (Auto) % Neut # (Auto) (1.4-6.5) K/uL Lymph # (Auto) (1.2-3.4) K/uL [place] # (Auto) (0.11-0.59) K/uL Eos # (Auto) (0-0.5) K/uL Baso # (Auto) (0-0.2) K/uL Immature Gran # (Auto) (0.00-0.02) K/uL Anisocytosis Sodium (136-145) mmol/L Potassium (3.5-5.1) mmol/L Chloride (98-107) mmol/L Carbon Dioxide (21-32) mmol/L Anion Gap (3-11) BUN (7-18) mg/dl Creatinine (0.6-1.2) mg/dl Est Cr Clr Drug Dosing ml/min Est GFR ( Amer) ml/min Est GFR (Non-Af Amer) ml/min BUN/Creatinine Ratio (10-20) Glucose (70-99) mg/dl Calcium (8.5-10.1) mg/dl Phosphorus (2.5-4.9) mg/dl Magnesium (1.8-2.4) mg/dl Total Bilirubin (0.2-1) mg/dl AST (15-37) U/L ALT (12-78) U/L Alkaline Phosphatase (45-117) U/L Troponin I (0-0.045) ng/ml Total Protein (6.4-8.2) gm/dl Albumin (3.4-5.0) gm/dl Globulin (2.5-4.0) gm/dl Albumin/Globulin Ratio (0.9-2) Lipase (73-393) U/L TSH (0.300-4.500) uIu/ml COVID-19 Eval Order SARS-CoV-2 (PCR) NEGATIVE (Negative) ECG Data Attestation: I personally reviewed and interpreted this ECG as follows: Indication: + weakness Rate (beats per minute): 86 Rhythm: + normal sinus ECG Intervals/blocks: + Normal QRS and + Prolonged QT ECG [place]: + Normal ECG ST segments: + Nonspecific ST abnormalities Additional Comments: flattening of T waves V4-6, and III, aVF MDM Narrative This is a 65-year-old female who presents with complaints of chronic generalized weakness since July that she states has been determined intermittently to be due to low electrolytes including potassium magnesium. Patient is to be taking supplementations both these but states the potassium supplementation makes her nauseated and she does not frequently take it. Patient states she has a difficult time eating and staying well-hydrated. She does feel that this contributes to her current symptoms. Patient states she has had episodes of syncope and falling. She denies any concern for trauma or injury. No ectopy or dysrhythmia noted on telemetry and patient otherwise afebrile and hemodynamically stable. Labs did reveal mild SAVANNAH and prerenal azotemia with significant hypokalemia of 1.9. Patient given oral potassium and fluids changed over to a potassium-containing solution. Patient's magnesium and phosphorus were within normal limits. No evidence of acute infectious etiology. I have a low suspicion for occult traumatic injury. Patient symptoms likely due to non compliance as an outpatient with her supplementation and dehydration leading to worsening kidney function. UA was pending at the time of my discussion with the hospitalist. Anemia stable compared to prior. Hyponatremia likely from decreased intake also. Patient has had hyponatremia in the past although never to this extent. Patient was made aware of all results, verbalized understanding and was in agreement with plan for additional inpatient treatment and evaluation. An order was placed for continuous cardiac monitoring. The monitor shows a rate of _80_ with _normal sinus_ rhythm. Impression & Plan Generalized weakness, Prolonged Q-T interval on ECG, Hypokalemia, SAVANNAH (acute kidney injury), Dehydration, Hyponatremia, Anemia Discharge Plan Visit Data Chief Complaint: Weakness ED Provider: Elisa Chatman Discharge Problem: Generalized weakness, Prolonged Q-T interval on ECG, Hypokalemia, SAVANNAH (acute kidney injury), Dehydration, Hyponatremia, Anemia Patient Disposition: Admitted As Inpatient Discharge Instructions Interventions: ED Discharge Assessment Last Done: 01/04/21 18:25 Discharge Problem: Anemia Qualifiers: Anemia type: unspecified type Qualified Code(s): D64.9 - Anemia, unspecified
[2021-01-04 14:31] LABS: Immature Granulocytes # (auto) 0.04 K/uL (0.00-0.02); Immature Granulocytes % (auto) 0.5 %; Lymphocytes # (auto) 0.39 K/uL (1.2-3.4); Mean Corpuscular Hemoglobin 30.8 pg (25-34); Mean Corpuscular Hgb Conc 34.8 g/dL (32-36); Mean Corpuscular Volume 88.5 fL (80-100); Mean Platelet Volume 8.9 fL (7.4-10.4); Monocytes # (auto) 0.26 K/uL (0.11-0.59); Monocytes % (auto) 3.4 %; Neutrophils # (auto) 7.05 K/uL (1.4-6.5); Neutrophils % (auto) 91.1 %; Platelet Count 367 K/uL (130-400); RDW Standard Deviation 68.2 fL (36.4-46.3); White Blood Count 7.74 K/uL (4.8-10.8)
[2021-01-04] MEDS: SODIUM CHLORIDE 0.9% 1000ML 1,000 ML IV SCH (14:31)
[2021-01-04 14:56] LABS: Anisocytosis Present
[2021-01-04 15:01] LABS: Albumin Level 2.2 gm/dl (3.4-5.0); Calcium 8.7 mg/dl (8.5-10.1); Creatinine Clr Calc Pharmacy 22.6 ml/min; Est GFR (African American) 26.9 ml/min; Est GFR (Non-African American) 23.2 ml/min; Magnesium 2.4 mg/dl (1.8-2.4); Potassium 1.9 mmol/L (3.5-5.1)
[2021-01-04 15:05] LABS: Albumin Globulin Ratio 0.7 (0.9-2); Bilirubin,Total 0.5 mg/dl (0.2-1); Globulin 3.1 gm/dl (2.5-4.0); Phosphorus 2.6 mg/dl (2.5-4.9); Thyroid Stimulating Hormone 3.64 uIu/ml (0.300-4.500); Total Protein 5.3 gm/dl (6.4-8.2); Troponin I 0.039 ng/ml (0-0.045)
[2021-01-04] MEDS ORDERED: NSS + 20MEQ KCL 20 MEQ/1,000 ML BAG IV SCH (15:15)
[2021-01-04] MEDS ORDERED: POTASSIUM CHLORIDE PWD 20 MEQ PACK PO SCH (15:30)
--- NOTE | 2021-01-04 16:31 | Electrocardiogram Report ---
Test Reason : Blood Pressure : / mmHG Vent. Rate : 086 BPM Atrial Rate : 086 BPM P-R Int : 156 ms QRS Dur : 082 ms QT Int : 502 ms P-R-T Axes : 039 016 035 degrees QTc Int : 600 ms Normal sinus rhythm Possible Inferior infarct (cited on or before 09-DEC-2020) Cannot rule out Anterior infarct (cited on or before 25-JUN-2020) Prolonged QT Abnormal ECG When compared with ECG of 09-DEC-2020 06:15, Nonspecific T wave abnormality no longer evident in Anterior leads QT has lengthened Confirmed by Guille Oro ([id number]) on 01/04/2021 4:31:04 PM Referred By: Confirmed By:Guille Oro
[2021-01-04] MEDS ORDERED: POTASSIUM CHLORIDE / WTR 10 MEQ/100 ML PLCT IV STA (17:45)
--- NOTE | 2021-01-04 17:52 | History & Physical Report ---
Date of Service January 04, 2021 Assessment & Plan (1) Hypokalemia: Plan: 65 y/o F Hx hypothyroidism, anemia, metastatic endometrial CA which is active. Presents with weakness and feeling cold. The pt has previously been admitted with electrolyte abnormalities and similar symptoms. She has a K of 1.9 on initial labs. Labs are additionally notable for hyponatremia, SAVANNAH, protein malnutrition and anemia which is stable. There are nonspecific ST changes and a prolonged QT on EKG. The pt was [rescribed K but has not complied as she states it make her nauseous. 1) Hypokalemia with EKG changes - placed on IV and PO K. Monitor on telemetry, serial BMPs. She should likely be prescribed a K poder or solution that she can mix into food or drink on DC. 2) ARF - likely due to dehydration - IVF provided - recheck BMP - additional workup if there is no short-term improvement. 3) Anemia - we will order an iron profile as it would come to reason that this is contributing considering her nutritional status. 4) Malnutrition - supplements ordered 5) Endometrial CA - she is pending an appt at [facility] but not currently treated 6) Hypothyroidism - cont Synthroid - check TSH Full code - SCDs as I suspect she may be a bleeding risk Total time for this admit including review of labs, meds, records, EKG - discussion with pt and ER attending - 45 min (2) Weakness: (3) Malnutrition: (4) Hypothyroid: (5) Uterine mass: (6) SAVANNAH (acute kidney injury): History of Present Illness Chief Complaint: Weakness, hypokalemia Primary Care Provider: DAI Phelan 65 y/o F Hx hypothyroidism, anemia, metastatic endometrial CA which is active. Presents with weakness and feeling cold. The pt has previously been admitted with electrolyte abnormalities and similar symptoms. She has a K of 1.9 on initial labs. Labs are additionally notable for hyponatremia, SAVANNAH, protein malnutrition and anemia which is stable. There are nonspecific ST changes and a prolonged QT on EKG. The pt was [rescribed K but has not complied as she states it make her nauseous. PMH: 1) Metastatic endometrial CA - the pt had a hysterectomy . She was placed on Keytruda most recently but states she did not tolerate it well. She has recently transitioned oncologists and is not currently being treated. 2) Hypothyroidism 3) Anemia - baseline Hb 8 4) Recurrent electrolyte abnormalities. Surgical: Hysterectomy 06/2019 Social: Does not smoke or drink Family: Father - "old age" Mother - cause not know - history of HTN Allergies Allergy/AdvReac Type Severity Reaction Status Date / Time carvedilol Allergy Mild Anxiety Verified 01/04/21 15:46 losartan Allergy Unknown TIRED AND Verified 01/04/21 15:46 "BLEEDING" - SEE NOTES BELOW codeine AdvReac Mild Headache & Verified 01/04/21 15:46 NAUSEA RIOS Inhibitors AdvReac Unknown CONSTIPATION Verified 01/04/21 15:46 - SEE NOTES BELOW erythromycin base AdvReac Unknown ABDOMINAL Verified 01/04/21 15:46 CRAMPS hydrochlorothiazide AdvReac Unknown SEVERE Verified 01/04/21 15:46 CONSTIPATION Home Medications Medication Instructions Recorded Confirmed Type cranberry 400 mg capsule 400 mg PO QAM 08/04/19 01/04/21 History levothyroxine 50 mcg capsule 50 mcg PO QAM 10/04/20 01/04/21 History acetaminophen 325 mg tablet 325 mg PO QID PRN 12/07/20 01/04/21 History (Tylenol) colestipol 1 gram tablet 1 g PO DAILY PRN #30 tab 12/10/20 01/04/21 Rx magnesium oxide 400 mg (241.3 mg 400 mg PO DAILY #30 tab 12/10/20 01/04/21 Rx magnesium) tablet dexamethasone 4 mg tablet 4 mg PO UD 01/04/21 01/04/21 History ondansetron HCl 4 mg tablet 4 mg PO TID PRN 01/04/21 01/04/21 History prochlorperazine maleate 10 mg 10 mg PO Q6 PRN 01/04/21 01/04/21 History tablet Past Med/Surg History Medical History Degenerative disc disease Dizziness Hypophosphatemia Malignant neoplasm of endometrium Endometrial biopsy 05/17/19 Osteoarthritis Prolonged Q-T interval on ECG Stress bladder incontinence, female Temporomandibular joint disorder hx/no current issues Vaginal pessary present Surgical History History of colonoscopy History of total abdominal hysterectomy and bilateral salpingo-oophorectomy 06/16/2019 Dr. Young - [facility] with pelvic para aortic node sampling, omenectomy. History of total right hip replacement 03/19/18: SAB x 1 at L3-L4 at [facility] S/P excision of lipoma HX OF BACK Family History Mother , 88yo Diabetes Heart failure Renal failure Hypertension Father , 93yo Colon cancer Prostate cancer Dementia Brother No problems noted. Sister Deep vein thrombosis Son No problems noted. Daughter No problems noted. Denies family history of Ovarian cancer Social History Smoking Status: Never smoker Second Hand Exposure: No; Hx Alcohol Use: No Hx Substance Use: No Preferred Language: Welsh Communication Ability: Effective Visual Impairment: No Limitations Hearing Ability: Normal Webmaster Required: No Beliefs That Will Affect Care: None marital status: / Current Living Situation: Alone current occupational status: retired current occupation: Retired from [employer] How many Children do You have: 1 Feels Safe at Home: Yes caffeine: Yes (2 cups/day) during the past year weight has: remained stable Assistive Devices: Glasses Review of Systems Review of Systems: Gen: Reports weakness primarily ENT: Denies congestion, throat pain, hearing loss Eyes: Denies acute visual changes CV: Denies CP, palpitations Pulmonary: Denies SOB, cough, wheezing GI: Chronic nausea Neuro: Denies acute or unilateral weakness, acute gait impairment, headache or acute visual changes Musculoskeletal: Denies joint pain, inflammation Endocrine: Denies polydipsia, polyuria Skin: Denies acute rashes or ulcers Physical Exam Physical Exam: General: Anxious, middle-aged F - non distress ENT: No erythema or exudates, no thrush Eyes: LUCRECIA, EOMI Head and neck: Normocephalic, atraumatic, No JVD, neck is supple. Chest/heart: Nontender, S1,2, RRR, no murmurs, no gallops Lungs: CTAB, no wheezing or crackles Abdomen: Nontender, nondistended, BS+ Neuro: AAO x 3, speech is clear, no unilateral weakness or loss of sensation, coordination intact Musculoskeletal: No joint inflammation, muscle tenderness, FROM Skin: No acute rashes or ulcers Extremities: + LE edema Results & Data Results & Data ([facility]) Vital Signs (Past 12 Hours) Vital Signs Temp Pulse Pulse Resp BP BP Pulse Ox 01/04/21 16:00 90 18 142/85 H 99 01/04/21 15:52 113 H 158/88 H 98 01/04/21 15:30 95 H 20 145/75 H 01/04/21 15:00 89 91 H 19 141/75 H 141/75 H 93 01/04/21 14:30 100 H 135/53 L 99 01/04/21 14:00 87 85 20 138/75 138/75 99 01/04/21 13:30 85 85 21 148/79 H 148/79 H 97 01/04/21 13:16 89 18 139/82 98 01/04/21 13:10 97.3 F L 91 H 18 139/82 98 Code Status & VTE Plan VTE Prophylaxis Plan VTE Prophylaxis will be ordered: Yes PG Care Time/CCT Total # of Minutes Spent Total Time Spent with Patient: Total time spent is greater than 50% in coordination of care (as documented) at patient's floor/unit and/or counseling patient: Coding Level of Care Code 04346 Initial Inpt Care Lvl 3 Diagnoses Hypokalemia E87.6 Weakness R53.1 Malnutrition E46 Hypothyroid E03.9 Uterine mass N85.8 SAVANNAH (acute kidney injury) N17.9
[2021-01-04] MEDS ORDERED: ACETAMINOPHEN 325 MG TAB PO PRN ×2 (18:50)
[2021-01-04] MEDS ORDERED: ZOLPIDEM TARTRATE 5 MG TAB PO PRN (18:50)
[2021-01-04] MEDS ORDERED: COLESTIPOL HCL 1 GM TAB PO PRN (18:50)
[2021-01-04] MEDS: NSS + 20MEQ KCL 20 MEQ/1,000 ML BAG IV SCH (20:06)
[2021-01-04 21:05] LABS: Appearance Urine Cloudy (Clear); Bacteria Urine Automated 4+ (Negative); Bilirubin Urine Negative (Negative); Blood Urine 2+ (Negative); Color Urine Yellow; Glucose Urine UA Negative (Negative); Ketones Urine Negative (Negative); Leukocyte Esterase Urine 2+ (Negative); Nitrite Urine Negative (Negative); Protein Urine Trace (Negative); Specific Gravity Urine 1.012 (1.000-1.030); Urobilinogen Urine Negative (Negative); WBC Urine Automated >30 /hpf (0-5); pH Urine 5.5 (4.5-7.5)
[2021-01-04] MEDS: POTASSIUM CHLORIDE / WTR 10 MEQ/100 ML PLCT IV SCH ×2 (21:51→22:53)
[2021-01-04 23:08] LABS: BUN Creatinine Ratio 27.6 (10-20); Calcium 7.8 mg/dl (8.5-10.1); Creatinine Clr Calc Pharmacy 32.9 ml/min; Est GFR (African American) 42.4 ml/min; Est GFR (Non-African American) 36.6 ml/min; Potassium 2.5 mmol/L (3.5-5.1)
[2021-01-05] MEDS: POTASSIUM CHLORIDE / WTR 10 MEQ/100 ML PLCT IV SCH ×8 (00:05→21:00)
[2021-01-05 02:35] LABS: Hematocrit (blood only) 18.8 % (37-47); Hemoglobin 6.6 g/dL (12.0-16.0); Mean Corpuscular Hemoglobin 30.4 pg (25-34); Mean Corpuscular Hgb Conc 35.1 g/dL (32-36); Mean Corpuscular Volume 86.6 fL (80-100); Mean Platelet Volume 9.1 fL (7.4-10.4); Platelet Count 310 K/uL (130-400); RDW Coefficient of Variation 21.2 % (11.5-14.5); RDW Standard Deviation 67.2 fL (36.4-46.3); Red Blood Count 2.17 M/uL (4.2-5.4); White Blood Count 6.09 K/uL (4.8-10.8)
[2021-01-05 02:44] LABS: Anisocytosis Present; Eosinophils # (auto) 0.03 K/uL (0-0.5); Eosinophils % (auto) 0.5 %; Immature Granulocytes # (auto) 0.03 K/uL (0.00-0.02); Immature Granulocytes % (auto) 0.5 %; Lymphocytes # (auto) 0.41 K/uL (1.2-3.4); Lymphocytes % (auto) 6.7 %; Monocytes # (auto) 0.24 K/uL (0.11-0.59); Monocytes % (auto) 3.9 %; Neutrophils # (auto) 5.38 K/uL (1.4-6.5); Neutrophils % (auto) 88.4 %
[2021-01-05 03:00] LABS: BUN Creatinine Ratio 32.7 (10-20); Calcium 7.4 mg/dl (8.5-10.1); Est GFR (African American) 55.3 ml/min; Est GFR (Non-African American) 47.7 ml/min; Magnesium 1.8 mg/dl (1.8-2.4); Potassium 2.5 mmol/L (3.5-5.1); Thyroid Stimulating Hormone 3.57 uIu/ml (0.300-4.500)
[2021-01-05 04:00] LABS: Hematocrit (blood only) 18.1 % (37-47); Hemoglobin 6.2 g/dL (12.0-16.0)
[2021-01-05] MEDS ORDERED: SODIUM CHLORIDE 0.9% 250 ML IV PRN (04:40)
[2021-01-05] MEDS: NSS + 20MEQ KCL 20 MEQ/1,000 ML BAG IV SCH ×2 (05:50→16:35)
[2021-01-05] MEDS: LEVOTHYROXINE SODIUM 50 MCG TABLET PO SCH (05:52)
[2021-01-05 07:26] LABS: BUN Creatinine Ratio 30.3 (10-20); Calcium 7.8 mg/dl (8.5-10.1); Creatinine Clr Calc Pharmacy 42.6 ml/min; Est GFR (African American) 60.2 ml/min; Est GFR (Non-African American) 51.9 ml/min; Potassium 2.7 mmol/L (3.5-5.1)
[2021-01-05] MEDS: SODIUM CHLORIDE 0.9% 1000ML 1,000 ML IV SCH (07:31)
[2021-01-05] MEDS ORDERED: OPTIRAY 320 100ml IV ONE (07:33)
--- NOTE | 2021-01-05 08:03 | CT Scan Report ---
CT OF THE ABDOMEN AND PELVIS WITH CONTRAST CLINICAL HISTORY: Acutely anemic with metastatic cancer. COMPARISON STUDY: CT of the abdomen and pelvis December 06, 2020. TECHNIQUE: Following IV administration of 94 mL of Optiray, axial images of the abdomen and pelvis we re obtained from the lung bases to the proximal femurs. Images were reviewed in the axial, sagittal, and coronal planes. IV contrast was administered without complication. Automated exposure control wa s utilized for the study. A dose lowering technique was utilized adhering to the principles of ALARA . CT DOSE: 394.30 mGycm FINDINGS: Pulmonary metastases are partially imaged on this exam. These have increased in size since chest CT of December 06, 2020. A right lower lobe lesion measures 5.1 cm. It previously measured 4.6 cm. Hepatic metastases have also increased in size. A right hepatic lobe lesion measures 4.1 cm. It previ ously measured 2.5 cm. Severe hepatic steatosis is again noted. There is no biliary ductal dilatation status post cholecystectomy. No retroperitoneal hematoma is present. There is no hemoperitoneum. No pneumatosis, free air or portal venous gas is present. There is mild anasarca. No evidence for a carrie l obstruction. Right hip arthroplasty is noted. There is gas within the bladder. No suspicious lesion s are identified within the visualized skeletal structures. Major vasculature is patent. Colonic dive rticulosis is noted without evidence for acute diverticulitis. There is trace fluid within the pelvis . IMPRESSION: 1. Progression of pulmonary and hepatic metastases since CT of December 06, 2020. 2. No retroperitoneal hematoma. No hemoperitoneum. 3. Severe hepatic steatosis. 4. Anasarca. 5. Gas within the bladder, presumably from recent instrumentation. ACT 112: Negative or not required by law. Electronically signed by: Yifan Vega M.D. 01/05/2021 8:01 AM
[2021-01-05] MEDS: MAGNESIUM OXIDE 400 MG TAB PO SCH (09:00)
[2021-01-05] MEDS: cefTRIAXone SODIUM 1,000 MG in DEXTROSE 5% 50 ML IV SCH (09:52)
[2021-01-05] MEDS: POTASSIUM CHLORIDE PWD 20 MEQ PACK PO SCH ×3 (09:52→19:59)
[2021-01-05] MEDS ORDERED: PANTOPRAZOLE BOLUS/DRIP 1 EA IV STA (12:42)
[2021-01-05] MEDS ORDERED: PANTOprazole 80 MG in DEXTROSE 5% 100 ML IV ONE (13:15)
[2021-01-05 13:41] LABS: Hematocrit (blood only) 27.7 % (37-47); Hemoglobin 9.5 g/dL (12.0-16.0)
[2021-01-05] MEDS: PANTOprazole 40 MG in DEXTROSE 5% 100 ML IV SCH ×2 (14:06→18:55)
--- NOTE | 2021-01-05 14:37 | Hospitalist Progress Note ---
Date of Service January 05, 2021 Assessment & Plan (1) Hypokalemia: Plan: Severe. presenting K 1.9. Improving with IV and PO supplementation. 2nd to poor oral intake, poor compliance with K supplementation, GI losses. Can't rule out renal losses. (2) Hyponatremia: Plan: Severe. Presenting Na 123; now 131 following isotonic hydration. 2nd to volume depletion. (3) Acute GI bleeding: Plan: Melena stool mixed with some maroon-colored stool. Copious motrin pre-hospitalization. The melena would suggest upper GI source (stomach, etc). maroon-colored stool would suggest distal small bowel or proximal colon. 2 sources of bleeding?? (4) Acute blood loss anemia: Plan: 2nd to #3. (5) Weakness: Plan: Multifactorial - low K, low Na, acute/chronic anemia, elevated ammonia?, UTI, worsening cancer, etc. (6) Metabolic encephalopathy: Plan: UTI, low Na, elevated ammonia level, etc can all contribute. Avoid sedating meds. (7) Malnutrition: Plan: Mild protein calorie malnutrition. (8) Hypothyroid: Plan: TSH wnl this admission on current dose of synthroid. (9) SAVANNAH (acute kidney injury): Plan: Presenting Cr 2.1. now 1.1. Pre-renal in etiology. Continue IV fluids. BMP am. (10) Uterine cancer: Plan: stage 4 - mets to lungs and liver. elevated ammonia level suggests that liver mets are severe and that the mets are interfering with liver function. has not had definitive Rx for cancer in several months. recently switched from the [facility] to [facility] in [place]. prognosis is very poor. (11) Prolonged Q-T interval on ECG: Plan: 2nd to low K (12) Hypoxia: Plan: no evidence of pulmonary edema in setting of PRBCs suspect extensive pulmonary mets could be contributing to O2 requirement consider CTA chest - r/o PE - but is having active GI bleeding; defer for now Plan: 1. cont IV/PO K supplementation 2. cont isotonic fluids with repeat BMP am 3. recheck of H/H following PRBCs shows good response to the transfusion 4. NPO 5. PPI drip for possible upper GI bleeding 6. rocephin for UTI 7. add flagyl for high ammonia given NPO status and GI bleeding 8. if any ischemia to the intestines the rocephin/flagyl will cover bacterial translocation 9. repeat CBC am 10. if H/H continue to fall will obtain GI consultation son updated by phone this evening [id number] also on phone discussed all current problems discussed current treatment plan family was not aware of metastatic disease total care coordination time 70 minutes Admission and Anticipated Discharge Date Admission Date: January 04, 2021 Subjective patient kept her eyes closed for most of my visit with her except for a couple of brief seconds. she did answer questions, and knew she was in the hospital, but seemed confused. she was constantly drawing up her legs, stating "they hurt" or "they are crampy." prior to my visit with her nursing staff reported multiple episodes of melena stool along with some episodes of maroon-colored stools. when asked about NSAID use she stated she had been taking motrin daily for leg pains/cramps. was taking 400mg "every 2 hours" in some cases. denied any abd pain. denied nausea or vomiting. she denied dyspnea. staff report that her O2 sats in room air were in the 40s at one point today? corrected to >90% with NC O2. tele overnight wnl. Review of Systems Constitutional: + chills ("cold" ), + fatigue, + weakness and + anorexia Respiratory: no cough, no dyspnea and no pain on inspiration Cardiovascular: no chest pain Gastrointestinal: + melena (here at hospital; denied having such at home ); no blood in stools (no BRBPR at home ) Musculoskeletal: + myalgia; no joint pain Physical Exam Physical Exam: gen - looks unwell, confused, sleepy but able to answer questions mouth - MM dry heart - RRR, s1 s2, no murmur lungs - soft fine rales bases, no wheeze abd - soft, NT, ND, BS+; NHI deferred but stool heme+ ext - no edema, pulses 2+ b/l skin - pallor neuro - constantly shifting legs in bed (RLS?) Results & Data Results & Data ([facility]) Vital Signs (Past 12 Hours) Vital Signs Temp Pulse Pulse Resp BP BP Pulse Ox 01/05/21 12:16 36.5 C 88 18 130/68 95 01/05/21 12:15 36.5 C 88 16 130/68 95 01/05/21 11:49 94 H 01/05/21 11:42 36.8 C 86 18 120/76 98 01/05/21 10:42 90 21 126/86 94 01/05/21 10:12 36.9 C 92 H 16 111/65 95 01/05/21 09:57 37 C 92 H 14 115/64 95 01/05/21 09:41 37 C 89 14 126/68 95 01/05/21 09:13 36.6 C 91 H 18 122/74 94 01/05/21 08:38 36.9 C 93 H 20 133/74 95 01/05/21 07:38 37 C 98 H 98 H 16 130/71 130/71 94 01/05/21 07:08 36.6 C 93 H 20 116/59 L 96 01/05/21 07:02 36.5 C 93 H 20 116/59 L 98 01/05/21 06:53 36.7 C 93 H 18 106/57 L 99 01/05/21 06:35 36.3 C L 95 H 16 117/69 99 01/05/21 04:07 36.7 C 101 H 20 108/61 98 Laboratory Results Laboratory Results - last 24 hr 01/04/21 01/04/21 01/04/21 14:22 14:22 15:30 WBC RBC Hgb Hct MCV MCH MCHC RDW Std Deviation RDW Coeff of Lewis Plt Count MPV Immature Gran % (Auto) Neut % (Auto) Lymph % (Auto) Lawrence % (Auto) Eos % (Auto) Baso % (Auto) Neut # (Auto) Lymph # (Auto) Lawrence # (Auto) Eos # (Auto) Baso # (Auto) Immature Gran # (Auto) Anisocytosis Present Sodium 123 L Potassium 1.9 L* Chloride 82 L Carbon Dioxide 21 Anion Gap 20.0 H BUN 53 H Creatinine 2.14 H Est Cr Clr Drug Dosing 22.6 Est GFR ( Amer) 26.9 Est GFR (Non-Af Amer) 23.2 BUN/Creatinine Ratio 25.0 H Glucose 110 H Calcium 8.7 Phosphorus 2.6 Magnesium 2.4 Iron TIBC Total Bilirubin 0.5 AST 125 H ALT 102 H Alkaline Phosphatase 172 H Troponin I 0.039 Total Protein 5.3 L Albumin 2.2 L Globulin 3.1 Albumin/Globulin Ratio 0.7 L Lipase 116 TSH 3.640 Urine Color Urine Appearance Urine pH Ur Specific [place] Urine Protein Urine Glucose (UA) Urine Ketones Urine Blood Urine Nitrite Urine Bilirubin Urine Urobilinogen Ur Leukocyte Esterase Urine WBC (Auto) Urine RBC (Auto) U Hyaline Cast (Auto) U Epithel Cells (Auto) Urine Bacteria (Auto) Stool Occult Bld Scrn COVID-19 Eval Order Covid19 at [facility] SARS-CoV-2 (PCR) Blood Type Antibody Screen Crossmatch 01/04/21 01/04/21 01/04/21 15:30 20:10 22:29 WBC RBC Hgb Hct MCV MCH MCHC RDW Std Deviation RDW Coeff of Lewis Plt Count MPV Immature Gran % (Auto) Neut % (Auto) Lymph % (Auto) Lawrence % (Auto) Eos % (Auto) Baso % (Auto) Neut # (Auto) Lymph # (Auto) Lawrence # (Auto) Eos # (Auto) Baso # (Auto) Immature Gran # (Auto) Anisocytosis Sodium 129 L Potassium 2.5 L* D Chloride 93 L Carbon Dioxide 23 Anion Gap 13.0 H BUN 41 H Creatinine 1.47 H D Est Cr Clr Drug Dosing 32.9 Est GFR ( Amer) 42.4 Est GFR (Non-Af Amer) 36.6 BUN/Creatinine Ratio 27.6 H Glucose 83 Calcium 7.8 L Phosphorus Magnesium Iron TIBC Total Bilirubin AST ALT Alkaline Phosphatase Troponin I Total Protein Albumin Globulin Albumin/Globulin Ratio Lipase TSH Urine Color Yellow Urine Appearance Cloudy A Urine pH 5.5 Ur Specific [place] 1.012 Urine Protein Trace H Urine Glucose (UA) Negative Urine Ketones Negative Urine Blood 2+ H Urine Nitrite Negative Urine Bilirubin Negative Urine Urobilinogen Negative Ur Leukocyte Esterase 2+ H Urine WBC (Auto) >30 H Urine RBC (Auto) 10-30 H U Hyaline Cast (Auto) 1-5 U Epithel Cells (Auto) 5-10 H Urine Bacteria (Auto) 4+ H Stool Occult Bld Scrn COVID-19 Eval Order SARS-CoV-2 (PCR) NEGATIVE Blood Type Antibody Screen Crossmatch 01/05/21 01/05/21 01/05/21 02:01 02:01 03:35 WBC 6.09 RBC 2.17 L Hgb 6.6 L* 6.2 L* Hct 18.8 L* 18.1 L* MCV 86.6 MCH 30.4 MCHC 35.1 RDW Std Deviation 67.2 H RDW Coeff of Lewis 21.2 H Plt Count 310 MPV 9.1 Immature Gran % (Auto) 0.5 Neut % (Auto) 88.4 Lymph % (Auto) 6.7 Lawrence % (Auto) 3.9 Eos % (Auto) 0.5 Baso % (Auto) 0.0 Neut # (Auto) 5.38 Lymph # (Auto) 0.41 L Lawrence # (Auto) 0.24 Eos # (Auto) 0.03 Baso # (Auto) 0.00 Immature Gran # (Auto) 0.03 H Anisocytosis Present Sodium 130 L Potassium 2.5 L* Chloride 96 L Carbon Dioxide 25 Anion Gap 9.0 BUN 39 H Creatinine 1.18 Est Cr Clr Drug Dosing 41.0 Est GFR ( Amer) 55.3 Est GFR (Non-Af Amer) 47.7 BUN/Creatinine Ratio 32.7 H Glucose 77 Calcium 7.4 L Phosphorus Magnesium 1.8 Iron 36 TIBC 97 L Total Bilirubin AST ALT Alkaline Phosphatase Troponin I Total Protein Albumin Globulin Albumin/Globulin Ratio Lipase TSH 3.570 Urine Color Urine Appearance Urine pH Ur Specific [place] Urine Protein Urine Glucose (UA) Urine Ketones Urine Blood Urine Nitrite Urine Bilirubin Urine Urobilinogen Ur Leukocyte Esterase Urine WBC (Auto) Urine RBC (Auto) U Hyaline Cast (Auto) U Epithel Cells (Auto) Urine Bacteria (Auto) Stool Occult Bld Scrn COVID-19 Eval Order SARS-CoV-2 (PCR) Blood Type Antibody Screen Crossmatch 01/05/21 01/05/21 01/05/21 03:35 03:35 06:29 WBC RBC Hgb Hct MCV MCH MCHC RDW Std Deviation RDW Coeff of Lewis Plt Count MPV Immature Gran % (Auto) Neut % (Auto) Lymph % (Auto) Lawrence % (Auto) Eos % (Auto) Baso % (Auto) Neut # (Auto) Lymph # (Auto) Lawrence # (Auto) Eos # (Auto) Baso # (Auto) Immature Gran # (Auto) Anisocytosis Sodium 131 L Potassium 2.5 L* 2.7 L Chloride 98 Carbon Dioxide 22 Anion Gap 11.0 BUN 33 H Creatinine 1.10 Est Cr Clr Drug Dosing 42.6 Est GFR ( Amer) 60.2 Est GFR (Non-Af Amer) 51.9 BUN/Creatinine Ratio 30.3 H Glucose 94 Calcium 7.8 L Phosphorus Magnesium Iron TIBC Total Bilirubin AST ALT Alkaline Phosphatase Troponin I Total Protein Albumin Globulin Albumin/Globulin Ratio Lipase TSH Urine Color Urine Appearance Urine pH Ur Specific [place] Urine Protein Urine Glucose (UA) Urine Ketones Urine Blood Urine Nitrite Urine Bilirubin Urine Urobilinogen Ur Leukocyte Esterase Urine WBC (Auto) Urine RBC (Auto) U Hyaline Cast (Auto) U Epithel Cells (Auto) Urine Bacteria (Auto) Stool Occult Bld Scrn COVID-19 Eval Order SARS-CoV-2 (PCR) Blood Type A Positive Antibody Screen NEGATIVE Crossmatch See Detail 01/05/21 01/05/21 13:14 Unknown WBC RBC Hgb 9.5 L D Hct 27.7 L MCV MCH MCHC RDW Std Deviation RDW Coeff of Lewis Plt Count MPV Immature Gran % (Auto) Neut % (Auto) Lymph % (Auto) Lawrence % (Auto) Eos % (Auto) Baso % (Auto) Neut # (Auto) Lymph # (Auto) Lawrence # (Auto) Eos # (Auto) Baso # (Auto) Immature Gran # (Auto) Anisocytosis Sodium Potassium Chloride Carbon Dioxide Anion Gap BUN Creatinine Est Cr Clr Drug Dosing Est GFR ( Amer) Est GFR (Non-Af Amer) BUN/Creatinine Ratio Glucose Calcium Phosphorus Magnesium Iron TIBC Total Bilirubin AST ALT Alkaline Phosphatase Troponin I Total Protein Albumin Globulin Albumin/Globulin Ratio Lipase TSH Urine Color Urine Appearance Urine pH Ur Specific [place] Urine Protein Urine Glucose (UA) Urine Ketones Urine Blood Urine Nitrite Urine Bilirubin Urine Urobilinogen Ur Leukocyte Esterase Urine WBC (Auto) Urine RBC (Auto) U Hyaline Cast (Auto) U Epithel Cells (Auto) Urine Bacteria (Auto) Stool Occult Bld Scrn Positive A COVID-19 Eval Order SARS-CoV-2 (PCR) Blood Type Antibody Screen Crossmatch PG Care Time/CCT Total # of Minutes Spent Total Time Spent with Patient: Total time spent is greater than 50% in coordination of care (as documented) at patient's floor/unit and/or counseling patient: Prolonged Care Time Prolonged Care Time: Yes Total Prolonged Care Time: 70 Coding Level of Care Code 59166 Subseq Hosp Care Lvl 3 (25 - SIGNIFICANT, SEPARATELY IDENTIFIABLE ) Diagnoses Hypokalemia E87.6 Weakness R53.1 Malnutrition E44.1 Malnutrition type: protein-calorie malnutrition Protein-calorie malnutrition severity: mild Hypothyroid E03.9 SAVANNAH (acute kidney injury) N17.9 Uterine cancer C55 Hyponatremia E87.1 Acute blood loss anemia D62 Acute GI bleeding K92.2 Metabolic encephalopathy G93.41 Prolonged Q-T interval on ECG R94.31 Hypoxia R09.02 Additional Codes Prolonged Care Time - Prolonged Care Time: Yes ([id number]) Time Spent (min) 70 (1) Malnutrition Malnutrition type: protein-calorie malnutrition Protein-calorie malnutrition severity: mild Qualified Code(s): E44.1 - Mild protein-calorie malnutrition
--- NOTE | 2021-01-05 16:15 | CT Scan Report ---
CT OF THE HEAD WITHOUT CONTRAST CLINICAL HISTORY: stage 4 cancer, falls; eval ICH, mets COMPARISON STUDY: Head CT December 07, 2020. CT DOSE: 614.27 mGy.cm TECHNIQUE: Helical axial images of the head were obtained without IV contrast. Automated exposure con trol was utilized for the study. A dose lowering technique was utilized adhering to the principles o f ALARA. FINDINGS: No acute intracranial hemorrhage, midline shift or mass effect is present. The ventricular system is unremarkable. The basal cisterns are patent. No extra-axial collections are present. There are no findings to suggest acute dural sinus thrombosis or acute territorial infarct. No significant calvarial abnormalities are present. Visualized portions of the sinuses and mastoid air cells are berny ar. IMPRESSION: 1. No acute intracranial findings. No change in appearance of the brain. 2. No evidence of metastatic disease on unenhanced head CT. ACT 112: Negative or not required by law. Electronically signed by: Yifan Vega M.D. 01/05/2021 4:14 PM
[2021-01-05 17:40] LABS: Hematocrit (blood only) 28.8 % (37-47); Hemoglobin 9.9 g/dL (12.0-16.0)
[2021-01-05 17:47] LABS: INR 1.1 (0.9-1.1); Prothrombin Time 11.1 Seconds (9.0-12.0)
[2021-01-05] MEDS: metroNIDAZOLE 500 MG/100 ML BAG IV SCH (18:49)
[2021-01-06] MEDS: PANTOprazole 40 MG in DEXTROSE 5% 100 ML IV SCH ×5 (00:26→19:43)
[2021-01-06] MEDS: metroNIDAZOLE 500 MG/100 ML BAG IV SCH ×3 (02:22→19:35)
[2021-01-06] MEDS: NSS + 20MEQ KCL 20 MEQ/1,000 ML BAG IV SCH ×2 (02:38→12:49)
[2021-01-06 05:45] LABS: Hematocrit (blood only) 27.4 % (37-47); Hemoglobin 9.5 g/dL (12.0-16.0); Mean Corpuscular Hemoglobin 30.2 pg (25-34); Mean Corpuscular Hgb Conc 34.7 g/dL (32-36); Mean Platelet Volume 8.4 fL (7.4-10.4); Platelet Count 199 K/uL (130-400); RDW Coefficient of Variation 19.4 % (11.5-14.5); RDW Standard Deviation 60.3 fL (36.4-46.3); Red Blood Count 3.15 M/uL (4.2-5.4); White Blood Count 3.23 K/uL (4.8-10.8)
[2021-01-06] MEDS: LEVOTHYROXINE SODIUM 50 MCG TABLET PO SCH (05:56)
[2021-01-06 06:20] LABS: Calcium 7.2 mg/dl (8.5-10.1); Creatinine Clr Calc Pharmacy 66.5 ml/min; Est GFR (African American) 100.4 ml/min; Est GFR (Non-African American) 86.7 ml/min; Potassium 3.4 mmol/L (3.5-5.1)
[2021-01-06] MEDS: cefTRIAXone SODIUM 1,000 MG in DEXTROSE 5% 50 ML IV SCH (07:47)
[2021-01-06] MEDS: POTASSIUM CHLORIDE PWD 20 MEQ PACK PO SCH ×3 (07:47→22:01)
[2021-01-06] MEDS: MAGNESIUM OXIDE 400 MG TAB PO SCH (07:47)
--- NOTE | 2021-01-06 12:35 | Hospitalist Progress Note ---
Date of Service January 06, 2021 Assessment & Plan (1) Hypokalemia: Plan: Severe. presenting K 1.9. Improving with IV and PO supplementation. 2nd to poor oral intake, poor compliance with K supplementation, GI losses. Can't rule out renal losses. (2) Hyponatremia: Plan: Severe. Presenting Na 123; now 131 following isotonic hydration. 2nd to volume depletion. (3) Acute GI bleeding: Plan: Melena stool mixed with some maroon-colored stool. Copious motrin pre-hospitalization. The melena would suggest upper GI source (stomach, etc). maroon-colored stool would suggest distal small bowel or proximal colon. 2 sources of bleeding?? (4) Acute blood loss anemia: Plan: 2nd to #3. (5) Weakness: Plan: Multifactorial - low K, low Na, acute/chronic anemia, elevated ammonia?, UTI, worsening cancer, etc. (6) Metabolic encephalopathy: Plan: UTI, low Na, elevated ammonia level, etc can all contribute. Avoid sedating meds. (7) Malnutrition: Plan: Mild protein calorie malnutrition. (8) Hypothyroid: Plan: TSH wnl this admission on current dose of synthroid. (9) SAVANNAH (acute kidney injury): Plan: Presenting Cr 2.1. now 1.1. Pre-renal in etiology. Continue IV fluids. BMP am. (10) Uterine cancer: Plan: stage 4 - mets to lungs and liver. elevated ammonia level suggests that liver mets are severe and that the mets are interfering with liver function. has not had definitive Rx for cancer in several months. recently switched from the [facility] to [facility] in [place]. prognosis is very poor. (11) Prolonged Q-T interval on ECG: Plan: 2nd to low K (12) Hypoxia: Plan: no evidence of pulmonary edema in setting of PRBCs suspect extensive pulmonary mets could be contributing to O2 requirement consider CTA chest - r/o PE - but is having active GI bleeding; defer for now Plan: 1. cont IV/PO K supplementation 2. cont isotonic fluids with repeat BMP am 3. recheck of H/H following PRBCs shows good response to the transfusion 4. NPO 5. PPI drip for possible upper GI bleeding 6. rocephin for UTI 7. add flagyl for high ammonia given NPO status and GI bleeding 8. if any ischemia to the intestines the rocephin/flagyl will cover bacterial translocation 9. repeat CBC am 10. if H/H continue to fall will obtain GI consultation son updated by phone this evening [id number] also on phone discussed all current problems discussed current treatment plan family was not aware of metastatic disease total care coordination time 70 minutes Admission and Anticipated Discharge Date Admission Date: January 04, 2021 Physical Exam Physical Exam: gen - looks unwell, confused, sleepy but able to answer questions mouth - MM dry heart - RRR, s1 s2, no murmur lungs - soft fine rales bases, no wheeze abd - soft, NT, ND, BS+; NHI deferred but stool heme+ ext - no edema, pulses 2+ b/l skin - pallor neuro - constantly shifting legs in bed (RLS?) Results & Data Results & Data ([facility]) Vital Signs (Past 12 Hours) Vital Signs Temp Pulse Pulse Resp BP Pulse Ox 01/06/21 10:56 36.7 C 85 18 133/81 97 01/06/21 07:59 98 H 01/06/21 07:00 37 C 99 H 16 124/74 98 01/06/21 03:59 36.5 C 102 H 18 124/71 98 Laboratory Results Laboratory Results - last 24 hr 01/05/21 01/05/21 01/05/21 13:14 17:23 17:23 WBC RBC Hgb 9.5 L D 9.9 L Hct 27.7 L 28.8 L MCV MCH MCHC RDW Std Deviation RDW Coeff of Lewis Plt Count MPV PT 11.1 INR 1.1 Sodium Potassium Chloride Carbon Dioxide Anion Gap BUN Creatinine Est Cr Clr Drug Dosing Est GFR ( Amer) Est GFR (Non-Af Amer) BUN/Creatinine Ratio Glucose Calcium Ammonia Stool Occult Bld Scrn 01/05/21 01/05/21 01/05/21 17:23 17:23 Unknown WBC RBC Hgb Hct MCV MCH MCHC RDW Std Deviation RDW Coeff of Lewis Plt Count MPV PT INR Sodium Potassium 3.2 L D Chloride Carbon Dioxide Anion Gap BUN Creatinine Est Cr Clr Drug Dosing Est GFR ( Amer) Est GFR (Non-Af Amer) BUN/Creatinine Ratio Glucose Calcium Ammonia 45.0 H Stool Occult Bld Scrn Positive A 01/06/21 01/06/21 05:34 05:34 WBC 3.23 L RBC 3.15 L Hgb 9.5 L Hct 27.4 L MCV 87.0 MCH 30.2 MCHC 34.7 RDW Std Deviation 60.3 H RDW Coeff of Lewis 19.4 H Plt Count 199 MPV 8.4 PT INR Sodium 136 Potassium 3.4 L Chloride 108 H Carbon Dioxide 21 Anion Gap 7.0 BUN 21 H Creatinine 0.72 D Est Cr Clr Drug Dosing 66.5 Est GFR ( Amer) 100.4 Est GFR (Non-Af Amer) 86.7 BUN/Creatinine Ratio 29.0 H Glucose 89 Calcium 7.2 L Ammonia Stool Occult Bld Scrn PG Care Time/CCT Total # of Minutes Spent Total Time Spent with Patient: Total time spent is greater than 50% in coordination of care (as documented) at patient's floor/unit and/or counseling patient: Coding Diagnoses Hypokalemia E87.6 Hyponatremia E87.1 Acute GI bleeding K92.2 Acute blood loss anemia D62 Weakness R53.1 Metabolic encephalopathy G93.41 Malnutrition E44.1 Malnutrition type: protein-calorie malnutrition Protein-calorie malnutrition severity: mild Hypothyroid E03.9 SAVANNAH (acute kidney injury) N17.9 Uterine cancer C55 Prolonged Q-T interval on ECG R94.31 Hypoxia R09.02 (1) Malnutrition Malnutrition type: protein-calorie malnutrition Protein-calorie malnutrition severity: mild Qualified Code(s): E44.1 - Mild protein-calorie malnutrition
--- NOTE | 2021-01-06 17:54 | Ultrasound Report ---
US venous doppler LE LT CLINICAL HISTORY: stage 4 cancer, edema, eval LLE DVT COMPARISON STUDY: No previous studies for comparison. FINDINGS: Real-time and color flow Doppler imaging were performed. Flow was seen within the femoral and poplite al veins. Occlusive acute deep venous thrombosis is seen within left posterior tibialis vein.. The sa phenous vein is patent. There is 6.3 x 2.9 x 2.1 cm complex avascular collection is seen within left popliteal fossa and coul d represent complex cyst versus other etiology. IMPRESSION: Studies are positive for acute deep venous thrombosis involving left posterior tibialis vein. Finding s will be called to the patient's unit. ACT 112: Negative or not required by law. The above report was generated using voice recognition software. It may contain grammatical, syntax o r spelling errors. Electronically signed by: Karlie Chirinos DO 01/06/2021 5:53 PM
[2021-01-06 18:15] VITALS: O2SAT 100
--- NOTE | 2021-01-06 21:17 | Discharge Summary ---
Date of Service date of admission - January 04, 2021 date of discharge - January 06, 2021 Admission HPI Per Admitting Provider 65 y/o F Hx hypothyroidism, anemia, metastatic endometrial CA with mets to the liver and lungs. Presents with weakness and feeling cold. The pt has previously been admitted with electrolyte abnormalities and similar symptoms. She has a K of 1.9 on initial labs. Labs are additionally notable for hyponatremia, SAVANNAH, protein malnutrition and anemia which is stable. There are nonspecific ST changes and a prolonged QT on EKG. The pt was prescribed K following her November 2020 admission - also for hypokalemia - but has not complied as she states it make her nauseous. Oncological history: Postmenopausal vaginal bleeding late 2018 Status post endometrial biopsy 05/17/2019 Diagnosis -- Undifferentiated uterine carcinoma, grade 3 Status post total abdominal hysterectomy, bilateral salpingo-oophorectomy, lymph node dissection and pelvic washings. Stage [id number] Stage III C 08/30/2019-10/11/2019. Taxol and carboplatin. Cycles 1-4. 10/25/2019. Chest CT. Multiple solid pulmonary nodules. Suspicious for metastasis. 11/09/2019. CT-guided biopsy of lung nodule. Atypical cells. 11/30/2019. PET/CT. Mild FDG uptake in a 1.1 cm right lower lobe pulmonary nodule. Increased in size from October 25, 2019. Highly suggestive of metastatic disease. 01/30/2020-02/21/2020. Taxol carboplatin. Cycles 5-6. 03/07/2020. PET/CT. Several pulmonary nodules. The largest was 6 mm. This is unchanged to slightly increased in size. No FDG uptake though below threshold of PET/CT. 05/28/2020. Chest CT. Significant increase in size and number of pulmonary nodules. 06/22/2020. Pembrolizumab plus lenvatinib. 1 cycle. 08/10/2020. Hospital admission for pancreatitis/cholecystitis. 08/15/2020. Cholecystectomy. Onset of intermittent vaginal bleeding. 10/01/2020. Vaginal recurrence noted on examination. Biopsies were taken. Tumor is similar in appearance to patient's prior uterine tumor 11/01/2020. Status post completion of radiation therapy. She received 3750 cGy to the pelvis. Patient has not had chemotherapy in several months. Prior to this admission she was in the process of transitioning [facility] (Dr Sergei Toussaint) at [facility] to [facility], [facility]. Principal Diagnosis 1. Hypokalemia - resolved 2. Severe weakness - multifactorial including hypokalemia, anemia, progressive cancer 3. LLE DVT- dx 01/06/21 4. Suspected PEs 5. Acute GI bleeding - source uncertain 6. Acute blood loss anemia - 2nd to #5 - s/p 2 units PRBCs 7. Altered mental status - multifactorial - mild hepatic encephalopathy possible, hyponatremia, SAVANNAH 8. Stage 4 uterine cancer with extensive mets to the liver and lungs 9. Hyponatremia - resolved 10. SAVANNAH - resolved Discharge Exam gen - ill-appearing, pale, mildly confused but does know the year and that she is in the hospital, tachypneic at times mouth - MM dry heart - borderline tachy, s1 s2, no murmur lungs - decreased BS bases b/l, no wheeze, no rales abd - soft, liver edge palpable, BS+, ND, NT ext - mild edema left foot (about 1+); <1+ edema RLE; pulses 2+ b/l skin - pallor; bruise right flank (from a fall at home on day of admission); bruise right hand Discharge Data Allergies Allergy/AdvReac Type Severity Reaction Status Date / Time carvedilol Allergy Mild Anxiety Verified 01/04/21 15:46 losartan Allergy Unknown TIRED AND Verified 01/04/21 15:46 "BLEEDING" - SEE NOTES BELOW codeine AdvReac Mild Headache & Verified 01/04/21 15:46 NAUSEA RIOS Inhibitors AdvReac Unknown CONSTIPATION Verified 01/04/21 15:46 - SEE NOTES BELOW erythromycin base AdvReac Unknown ABDOMINAL Verified 01/04/21 15:46 CRAMPS hydrochlorothiazide AdvReac Unknown SEVERE Verified 01/04/21 15:46 CONSTIPATION Procedures Performed PRBCs x 2 units Ordered Studies Abdomen/Pelvis CT 01/05/21 04:48 CT OF THE ABDOMEN AND PELVIS WITH CONTRAST CLINICAL HISTORY: Acutely anemic with metastatic cancer. COMPARISON STUDY: CT of the abdomen and pelvis December 06, 2020. TECHNIQUE: Following IV administration of 94 mL of Optiray, axial images of the abdomen and pelvis were obtained from the lung bases to the proximal femurs. Images were reviewed in the axial, sagittal, and coronal planes. IV contrast was administered without complication. Automated exposure control was utilized for the study. A dose lowering technique was utilized adhering to the principles of ALARA. CT DOSE: 394.30 mGycm FINDINGS: Pulmonary metastases are partially imaged on this exam. These have increased in size since chest CT of December 06, 2020. A right lower lobe lesion measures 5.1 cm. It previously measured 4.6 cm. Hepatic metastases have also increased in size. A right hepatic lobe lesion measures 4.1 cm. It previously measured 2.5 cm. Severe hepatic steatosis is again noted. There is no biliary ductal dilatation status post cholecystectomy. No retroperitoneal hematoma is present. There is no hemoperitoneum. No pneumatosis, free air or portal venous gas is present. There is mild anasarca. No evidence for a bowel obstruction. Right hip arthroplasty is noted. There is gas within the bladder. No suspicious lesions are identified within the visualized skeletal structures. Major vasculature is patent. Colonic diverticulosis is noted without evidence for acute diverticulitis. There is trace fluid within the pelvis. IMPRESSION: 1. Progression of pulmonary and hepatic metastases since CT of December 06, 2020. 2. No retroperitoneal hematoma. No hemoperitoneum. 3. Severe hepatic steatosis. 4. Anasarca. 5. Gas within the bladder, presumably from recent instrumentation. ACT 112: Negative or not required by law. Electronically signed by: Yifan Vega M.D. 01/05/2021 8:[address] 01/05/21 14:36 CT OF THE HEAD WITHOUT CONTRAST CLINICAL HISTORY: stage 4 cancer, falls; eval ICH, mets COMPARISON STUDY: Head CT December 07, 2020. CT DOSE: 614.27 mGy.cm TECHNIQUE: Helical axial images of the head were obtained without IV contrast. Automated exposure control was utilized for the study. A dose lowering technique was utilized adhering to the principles of ALARA. FINDINGS: No acute intracranial hemorrhage, midline shift or mass effect is present. The ventricular system is unremarkable. The basal cisterns are patent. No extra-axial collections are present. There are no findings to suggest acute dural sinus thrombosis or acute territorial infarct. No significant calvarial abnormalities are present. Visualized portions of the sinuses and mastoid air cells are clear. IMPRESSION: 1. No acute intracranial findings. No change in appearance of the brain. 2. No evidence of metastatic disease on unenhanced head CT. ACT 112: Negative or not required by law. Electronically signed by: Yifan Vega M.D. 01/05/2021 4:14 PM Venous Doppler Study 01/06/21 12:31 US venous doppler LE CLINICAL HISTORY: stage 4 cancer, edema, eval LLE DVT COMPARISON STUDY: No previous studies for comparison. FINDINGS: Real-time and color flow Doppler imaging were performed. Flow was seen within the femoral and popliteal veins. Occlusive acute deep venous thrombosis is seen within left posterior tibialis vein.. The saphenous vein is patent. There is 6.3 x 2.9 x 2.1 cm complex avascular collection is seen within left popliteal fossa and could represent complex cyst versus other etiology. IMPRESSION: Studies are positive for acute deep venous thrombosis involving left posterior tibialis vein. Findings will be called to the patient's unit. ACT 112: Negative or not required by law. The above report was generated using voice recognition software. It may contain grammatical, syntax or spelling errors. Electronically signed by: Karlie Chirinos DO 01/06/2021 5:53 PM Hospital Course (1) Left leg DVT: On 01/05/21 and 01/06/21 it was noted that the patient would have significant desaturation with removing her NC O2. On the am of 01/06/21 she had worsening edema of her left leg. Due to concern of DVT and/or PEs a LLE venous duplex study was obtained showing an acute DVT. This was a provoked DVT given her stage 4 cancer. CTA chest was not completed prior to transfer. As a result of her significant GI bleeding on the night of 01/04 and extending into 01/05 systemic anticoagulation was contraindicated. Due to lack of availability of vascular surgery at [facility] a call was placed to [facility] in [place] to discuss possible transfer for IR-placement of an IVC filter. Dr Ella Benton graciously accepted Ms Johnston in transfer for ongoing care and IR consultation. (2) Hypoxia: The patient developed hypoxia and an O2 requirement on the afternoon of 01/05/21. She had no evidence of pulmonary edema in the setting of her recent PRBC infusion. It was suspected that her extensive pulmonary mets were contributing to her O2 requirement. Additionally, VTE was also a concern. See above in "left leg DVT." Last chest imaging at [facility] was 12/06/20 showing the following - "There is no axillary, supra clavicle or internal lymphadenopathy seen. Medi astinal lymph nodes are not enlarged. Thyroid: Imaged portions of the thyroid gland are normal in appearance. Thoracic aorta: The thoracic aorta is normal in course and caliber, noting standard 3-vessel arch anatomy. No aneurysm or dissection is seen. Pulmonary vasculature: The pulmonary trunk is normal in caliber. There are no central filling defects identified to suggest pulmonary embolus. Note that this examination was not protocoled for the evaluation of pulmonary emboli. HEART: The heart is normal in size and configuration, without pericardial effusion. Lungs and pleural spaces: Tracheobronchial tree is patent. Multiple large lung nodules are again seen bilaterally which shows significant interval enlargement. For example previously seen 1.5 x 1.6 cm nodule within superior segment of the left lower lobe at the level of rosalio now measuring 4.3 x 3.8 cm and show mild anterior displacement of the right mainstem bronchus (). Interval development of 2.0 cm nodule adjacent to the left major fissure shows lobular extension to the left upper and lower lobes () Upper abdomen: Significant hepatic steatosis. Interval development of multiple enhancing lesion within the right lobe of the liver measuring up to 2.1 cm in size which are new since prior study and also were not visualized on CT of abdomen and pelvis performed on August 10, 2020 Skeletal structures: There are no lytic or blastic osseous lesions." (3) Acute GI bleeding: On the AM of 01/05 the patient began to pass copious amounts of melena stool. Some of the stool was mixed with maroon-colored stool as well. Patient admitted to copious motrin use for leg pains prior to this hospitalization. The melena suggested an upper GI source (stomach, etc) and thus a PPI drip was initiated. Maroon-colored stool would suggest, however, distal small bowel or proximal colon source. 2 sources of bleeding?? Lowest hemoglobin was 6.2 on the AM of 01/05, improving to 9.5 following 2 units PRBCs. On 01/07/21 her bleeding had stopped with no further melena or maroon-colored stools. In the event the patient had ischemia as a cause of her GI bleeding she was gilbert ntained on IV antibiotics (rocephin/flagyl). (4) Acute blood loss anemia: 2nd to #3. Lowest Hb level 6.2. s/p 2 units PRBCs. Discharge Hb 9.5. (5) Hypokalemia: Severe. Presenting K was 1.9. Improved with IV and PO supplementation. 2nd to poor oral intake, poor compliance with K supplementation, GI losses. Can't rule out renal losses. K was 3.4 on 01/06/21. Of note - magnesium levels were normal while here. (6) SAVANNAH (acute kidney injury): Presenting Cr 2.1. Discharge Cr 0.7. Pre-renal in etiology from severe volume depletion. Remains on gentle hydration of 50cc/hr upon transfer to [facility]. (7) Hyponatremia: Severe. Presenting Na 123; now 136 following isotonic hydration. 2nd to severe volume depletion. (8) Uterine cancer: Initial diagnosis 05/2019. See oncology history in HPI section. Stage 4 - mets to lungs and liver. CT head this admission negative for obvious [employer] mets. Elevated ammonia level of 45 suggests that liver mets are severe and that the mets are interfering with liver function. Has not had definitive Rx for cancer in several months. Recently switched from the [facility] to [facility]. Prognosis is very poor. Pt's son & [id number] did NOT know about her metastatic disease until this admission. Mets were found in late 2019/early 2020. 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 (9) Weakness: Multifactorial - low K, low Na, acute/chronic anemia, elevated ammonia?, UTI, worsening cancer, etc. (10) UTI (urinary tract infection): urine cx with klebsiella. Received IV rocephin while here. 2 doses of such were given. (11) Metabolic encephalopathy: UTI, low Na, elevated ammonia level, etc likely all contributed. CT head negative for acute pathology. (12) Hepatic encephalopathy: Level of 45 on 01/05. Suspect 2nd to worsening hepatic metastatic disease. Due to GI bleeding lactulose was deferred. The flagyl used to cover for colitis was also used to treat her hyperammonemia. (13) Malnutrition: Mild-moderate protein calorie malnutrition. Albumin 2.2 on 01/04/21. (14) Hypothyroid: TSH wnl this admission on current dose of synthroid. (15) Prolonged Q-T interval on ECnd to low K. I would like to thank [facility] and Dr Ella Benton for accepting Mrs Johnston in transfer for ongoing care and consideration of IVC filter placement. Total Time Total Time Spent Total Time Spent (In Minutes): 60 minutes - critical care time Discharge Plan Discharge Items Patient Disposition: Transfer Acute Care Hospital Reason For Visit: HYPOKALEMIA, WEAKNESS, STAGE 4 UTERINE CANCER Discharge Diagnosis: 1. Hypokalemia - resolved 2. Severe weakness - multifactorial including hypokalemia, anemia, progressive cancer 3. LLE DVT- dx 01/06/21 4. Suspected PEs 5. Acute GI bleeding 6. Acute blood loss anemia 7. Altered mental status - multifactorial - mild hepatic encephalopathy possible 8. Stage 4 uterine cancer with extensive mets to the liver and lungs Activity: As commented below Activity Comment: bedrest Non-emergency contact: Primary Care Provider and Oncologist Call non-emergency contact if: you have any medication questions Follow-up/Referrals: Amanda Lucas CRNP [Primary Care Provider] - Diet: Nothing by Mouth Addtl Attending Provider Instructions: Patient transferring to [facility] in [place] for IVC placement by interventional radiology. Pending Studies at Discharge: No Stand-Alone Forms: My [facility] Skilled Items Patient informed of condition?: Yes DNR: No Discharge Level of Care: Other Communicable Disease: No Discharge Prognosis: Other Lines: Peripheral IV Urinary Catheter: No Medications and DC Order Prescriptions: Continued levothyroxine 50 mcg capsule 50 mcg PO QAM RF: 0 acetaminophen [Tylenol] 325 mg Tablet 325 mg PO QID PRN (Reason: Pain) RF: 0 colestipol 1 gram tablet 1 g PO DAILY PRN (Reason: diarrhea) Qty: 30 RF: 0 magnesium oxide 400 mg (241.3 mg magnesium) tablet 400 mg PO DAILY Qty: 30 RF: 1 ondansetron HCl 4 mg tablet 4 mg PO TID PRN (Reason: Nausea) RF: 0 prochlorperazine maleate 10 mg tablet 10 mg PO Q6 PRN (Reason: Nausea) RF: 0 Discontinued cranberry 400 mg capsule 400 mg PO QAM RF: 0 dexamethasone 4 mg tablet 4 mg PO UD RF: 0 Discharge Orders: Discharge Order (Routine); Ordered 01/06/21 Ordered By: Florian Choe Admission Data Admit Date/Time: 01/04/21 17:45 Attending Provider: Florian Choe Admit Provider: Garry Chong Primary Care Provider: Amanda Lucas Other Providers: Garry Chong Coding Level of Care Code None Diagnoses Hypokalemia E87.6 Hyponatremia E87.1 Acute GI bleeding K92.2 Acute blood loss anemia D62 Weakness R53.1 Metabolic encephalopathy G93.41 Malnutrition E44.1 Malnutrition type: protein-calorie malnutrition Protein-calorie malnutrition severity: mild Hypothyroid E03.9 SAVANNAH (acute kidney injury) N17.9 Uterine cancer C55 Prolonged Q-T interval on ECG R94.31 Hypoxia R09.02 Left leg DVT I82.402 Hepatic encephalopathy K72.90 UTI (urinary tract infection) N39.0 Time Spent (min) 60 Comment Critical care time - due to life threatening nature of an untreated DVT & need for filter.
--- NOTE | 2021-01-06 22:05 | Billing Data ---
Date of Service January 06, 2021 Coding Level of Care Code Critical Care 1st - mins
[2021-01-06 22:11] VITALS: BP 143/97; PULSE 102; TEMP 97.3
== END 2021-01-06 23:11 | disposition short-term general hospital (02) | DRG 640 ==
LOC: ED 13:07 → 2E 17:45 → SUATTDRO 17:45 → 2E 18:25